=== PATIENT | female | born 1935 | race Caucasian/White ===

== ENCOUNTER 2016-09-19 13:28 | Outpatient (CLI) | payer MEDICARE ==
--- NOTE | 2016-09-21 09:34 | Mammography Report ---
DIGITAL BILATERAL SCREENING MAMMOGRAM: 09/19/2016 CLINICAL HISTORY: A 81-year-old female in for routine screening mammogram. The patient has a cousin w ho had breast cancer at age 60. The patient has had prior breast cancer. The patient had lumpectomy w ith several node resections of the left breast in 2007. COMPARISON: 01/29/2008, 08/01/2008, 02/19/2009, 08/27/2009, 08/12/2010, 08/04/2011, 08/01/2012, 08/22, 08/29/2014, 09/18/2015. TECHNIQUE: Craniocaudal and oblique lateral views of each breast were obtained with Acoriogic profile d igital mammography including breast tomosynthesis. FINDINGS: The breast parenchyma is mainly composed of fat. There is some mild residual scarring from the lumpectomy in the left breast. Multiple surgical clips are noted in the upper outer quadrant of t he left breast related to the prior lumpectomy. No significant clusters of calcification are seen. No significant masses are noted. Left breast is smaller than the right related to the lumpectomy. IMPRESSION: PAST HISTORY OF LEFT LUMPECTOMY. THE BREASTS PRESENTLY APPEAR RADIOGRAPHICALLY BENIGN. BIRADS CATEGORY 2-BENIGN FINDINGS. RECOMMENDATION: ANNUAL BILATERAL SCREENING MAMMOGRAPHY. STANDARD QUALIFYING STATEMENTS 1. This examination was reviewed with the aid of Computer-Aided Detection (CAD). 2. A negative or benign imaging report should not delay biopsy if clinically suspicious findings are present. Consider surgical consultation if warranted. More than 5% of cancers are not identified by i maging. 3. Dense breasts may obscure an underlying neoplasm. JOB #: [id number] EXT JOB #:[id number]
== END 2016-09-19 13:29 | disposition home or self-care (01) ==
LOC: DI 13:28
PROVIDERS: ATTEND Internal Medicine
DX: Z12.31 Encounter for screening mammogram for malignant neoplasm of breast (principal); Z85.3 Personal history of malignant neoplasm of breast
CPT/HCPCS: 77067

== ENCOUNTER 2016-10-20 07:31 | Outpatient (CLI) | payer MEDICARE ==
--- NOTE | 2016-10-20 09:35 | Ultrasound Report ---
LIMITED ABDOMINAL ULTRASOUND: 10/20/2016 CLINICAL HISTORY: Right upper quadrant pain. TECHNIQUE: Real-time scanning was performed with specialty sales representative static images obtained. FINDINGS: The liver demonstrates a hyperechoic mass in the superior lateral aspect of the right lobe measuring 1.5 cm by 1.1 cm by 1.8 cm. This finding was noted on a previous abdominal ultrasound date d 09/15/2014 without significant change in size. The finding most likely represents a benign hemangio ma of the liver. The liver parenchymal pattern otherwise shows no significant abnormality. The liver measures 13.5 cm in length and is of normal size. The portal vein shows hepatopetal flow. The gallbladder shows minimal wall thickening and multiple calculi most of which measure 1 to 1.5 cm. There are over five of these calculi present that show classic echogenic appearance with acoustic sh adowing. Calculi were also present on preceding exam. The gallbladder wall thickening, however, is a new finding. The gallbladder wall measures 2.7 mm. The common hepatic/common bile duct are within normal limits in size measuring 4.6 mm. The right kidn ey measures 9.7 cm and shows no significant pyelocaliceal system dilatation. IMPRESSION: 1. AN 1.5 CM BY 1.1 CM BY 1.8 CM BENIGN LIVER HEMANGIOMA IS ONCE AGAIN SEEN PRESENTING A HYPERECHO IC MASS UNCHANGED IN SIZE COMPARED TO 09/15/2014. 2. MULTIPLE GALLBLADDER CALCULI ARE ONCE AGAIN SEEN (CHOLELITHIASIS). THERE IS NOW SOME MINIMAL GALLB LADDER WALL THICKENING WITH THE WALL MEASURING 2.7 MM. THE PATIENT IS NOT TENDER OVER THE GALLBLADDER . JOB #: [id number] EXT JOB #:[id number]
== END 2016-10-20 07:32 | disposition home or self-care (01) ==
LOC: DI 07:31
PROVIDERS: ATTEND Internal Medicine
DX: D18.09 Hemangioma of other sites (principal); K80.20 Calculus of gallbladder without cholecystitis without obstruction
CPT/HCPCS: 76705

== ENCOUNTER 2017-05-27 10:46 | Observation (INO) | payer MEDICARE ==
[2017-05-27] MEDS ORDERED: ALBUTEROL NEB 2.5 MG/3 ML INH STA ×2 (11:15→12:51)
[2017-05-27] MEDS ORDERED: DEXAMETHASONE 10 MG/ML VIAL PO STA (11:15)
--- NOTE | 2017-05-27 11:17 | ED Physician Documentation ---
History of Present Illness - Stated complaint Stated Complaint: FLU LIKE SYMPTOMS - Chief complaint Chief Complaint: Resp - Additonal information Additional information: hx from pt and daughter 82 female normally quite healthy walks 2 miles a day and lifts weights twice a week hx asthma but not needed MDI for years no cardiac dz sick for about 8 days initially flu like sx (fever myalgia cough) now with acutely worsening SOA and cough no leg swelling Review of Systems Constitutional: reports: Fever, Chills, Myalgias, Fatigue Cardiac: denies: Chest pain / pressure Respiratory: reports: Dyspnea, Cough GI: denies: Abdominal Pain, Nausea, Vomiting, Diarrhea Neurologic: reports: Generalized weakness Endocrine: denies: Easy bruising / bleeding Immunocompromised: denies: Immunocompromised PD PAST MEDICAL HISTORY - Past Medical History Cardiovascular: Hypertension Respiratory: None Neuro: None Endocrine/Autoimmune: Type 2 diabetes GI: None VETERINARY PHYSIOLOGIST: None : None HEENT: None Psych: Depression, Anxiety Musculoskeletal: Osteoarthritis Derm: None - Past Surgical History Past Surgical History: Yes General: Appendectomy, Colonoscopy /VETERINARY PHYSIOLOGIST: Hysterectomy, Other - Present Medications Home Medications: Ambulatory Orders Medication Instructions Recorded Confirmed Furosemide 10 mg PO DAILY 03/08/13 10/13/15 Lisinopril 40 mg PO DAILY 03/08/13 10/13/15 Vitamins A and D [Vitamin A and D] 1 each PO DAILY 03/08/13 10/13/15 Levothyroxine [Synthroid] 10 mcg PO DAILY 08/11/14 10/13/15 Losartan [Cozaar] 25 mg PO DAILY 10/04/14 10/13/15 Meclizine HCl [Antivert] 25 mg PO Q6HR PRN #20 tablet 10/13/15 - Allergies Allergies/Adverse Reactions: Allergies Allergy/AdvReac Type Severity Reaction Status Date / Time codeine [Codeine] Allergy Hallucinati Verified 10/13/15 01:44 ons Opioids-Meperidine and Allergy Unknown Verified 10/13/15 01:44 Related [Opioids-Meperidine & Related] Opioids-Methadone and Related Allergy Unknown Verified 10/13/15 01:44 [Opioids-Methadone & Related] - Social History Does the pt smoke?: No Smoking Status: Never smoker Does the pt drink ETOH?: Yes Does the pt have substance abuse?: No - Immunizations Immunizations are current?: No Immunizations: TDAP >10years/unknown - POLST Patient has POLST: No PD ED PE NORMAL - Vitals Vital signs reviewed: Yes - General General: Alert and oriented X 3 - Neck Neck: Supple, no meningeal sign - Cardiac Cardiac: RRR - Respiratory Respiratory: Other (wheezing and ronchi bilaterally, labored) - Abdomen Abdomen: Soft, Non tender - Extremities Extremities: No edema, No calf tenderness / cord - Neuro Neuro: Alert and oriented X 3 Results - Vitals Vitals: Vital Signs - 24 hr 05/27/17 05/27/17 05/27/17 10:50 11:45 13:33 Temperature 37 C Heart Rate 50 L 64 56 L Respiratory 18 16 14 Rate Blood Pressure 115/72 O2 Saturation 99 05/27/17 13:36 Temperature 36.2 C L Heart Rate 62 Respiratory 10 L Rate Blood Pressure 122/54 L O2 Saturation 122 H Oxygen O2 Source Room air - EKG (time done) 1113 Rate: Rate (enter#) (53) Rhythm: NSR [place]: Normal Intervals: Normal [place] Ischemia: Normal ST segments - Labs Labs: Laboratory Tests 05/27/17 11:01 Influenza A (Rapid) Negative Influenza B (Rapid) Negative Influenza Types A,B Ag - - Rads (name of study) CXR Radiology: See rad report (NACPD) PD MEDICAL DECISION MAKING - ED course ED course: neg CXR neg flu underlying airway dz and ronchi on exam so will cover with antibiotics - gave zmax also steroids and nebs - if wheezing clears may consider dc - else admit for asthma exacerbation after 6 nebs and decadron pt still very wheezy and quite tachypneic RR mid 30s with ambulation d/w hospitalist and will keep in obs Departure - Departure Disposition: ED Place in Observation Clinical Impression: Bronchitis Asthma Qualifiers: Asthma severity: severe Asthma persistence: unspecified Asthma complication type: with acute exacerbation Qualified Code(s): J45.901 - Unspecified asthma with (acute) exacerbation Condition: Fair Discharge Date/Time: 05/27/17 16:05
[2017-05-27] MEDS ORDERED: CHERRY SYRUP 10 ML UDC PO ONE (11:39)
--- NOTE | 2017-05-27 12:03 | XRAY Report ---
EXAM: CHEST RADIOGRAPHY EXAM DATE: 05/27/2017 11:46 AM. CLINICAL HISTORY: Cough soa. COMPARISON: 08/04/2011. TECHNIQUE: 2 views. 3 images are provided. FINDINGS: Lungs/Pleura: No focal consolidation evident. No pleural effusion. No pneumothorax. Borderline hyperi nflation. Mediastinum: Upper normal heart size. Other: Surgical clips in the left breast as before. IMPRESSION: No radiographically apparent acute abnormality in the chest. No significant change from p rior. [facility] Referring Provider Line: [phone] SITE ID: [id number]
[2017-05-27] MEDS ORDERED: AZITHROMYCIN 250 MG TABLET PO STA (13:15)
[2017-05-27] MEDS ORDERED: SODIUM CHLORIDE FLUSH 0.9% 10 ML SYRINGE IVP PRN ×2 (15:27→15:31)
[2017-05-27] MEDS ORDERED: ZOLPIDEM 5 MG TABLET PO PRN (15:31)
[2017-05-27] MEDS ORDERED: ONDANSETRON 4 MG/2 ML VIAL IVP PRN (15:31)
[2017-05-27] MEDS ORDERED: ACETAMINOPHEN 325 MG TABLET PO PRN (15:31)
[2017-05-27] MEDS ORDERED: ALBUTEROL NEB 2.5 MG/3 ML INH PRN (15:36)
[2017-05-27 15:53] LABS: BASOPHILS # (AUTO) 0.1 10^3/uL (0.0-0.1); BASOPHILS % (AUTO) 0.9 %; EOSINOPHILS % (AUTO) 0.1 %; HGB - HEMOGLOBIN 12.5 g/dL (12.0-16.0); LYMPHOCYTES # (AUTO) 0.5 10^3/uL (1.5-3.5); LYMPHOCYTES % (AUTO) 7.3 %; MEAN CORPUSCULAR HEMOGLOBIN 31.9 pg (27.0-31.0); MEAN CORPUSCULAR HGB CONC 34.5 g/dL (32.0-36.0); MEAN CORPUSCULAR VOLUME 92.5 fL (81.0-99.0); MEAN PLATELET VOLUME 8.8 fL (7.9-10.8); MONOCYTES # (AUTO) 0.1 10^3/uL (0.0-1.0); MONOCYTES % (AUTO) 1.2 %; NEUTROPHILS # (AUTO) 6.2 10^3/uL (1.5-6.6); NEUTROPHILS % (AUTO) 90.5 %; PLT - PLATELET COUNT 135 10^3/uL (130-450); RED BLOOD COUNT 3.92 10^6/uL (4.20-5.40); WHITE BLOOD COUNT 6.9 x10^3/uL (4.8-10.8)
[2017-05-27 16:05] LABS: ALBUMIN 3.9 g/dL (3.2-5.5); ALBUMIN/GLOBULIN RATIO 1.4 (1.0-2.2); BILIRUBIN,TOTAL 0.4 mg/dL (0.2-1.0); CALCIUM 8.8 mg/dL (8.5-10.3); MAGNESIUM 1.7 mg/dL (1.7-2.8); TOTAL PROTEIN 6.7 g/dL (6.7-8.2)
--- NOTE | 2017-05-27 16:26 | HISTORY & PHYSICAL EXAMINATION ---
Chief Complaint - Chief Complaint Chief Complaint: cough and wheezing History of Present Illness - Admitted From Admitted From:: ER - History Obtained From History obtained from: pt and pt's daughter - History of Present Illness HPI Comment/Other: This is a 82-year-old female with a past medical history significant for Asthma , HTN, DM2, Depression, Anxiety, osteoarthritis, who present ER complaint of cough, wheezing. Pt repot she has been sickness for 8 days, with elevated temperature, cough with yellowish sputum, wheezing, shortness of breath. Pt report she has no asthma for nearly 4 years since she lost lots of weight. She keep walk 2 miles per day and lifts weights twice per week. She has not taken any medication for her DM2 for couple of years since she lost lots of weight. She denies chest pain, palpitation, headache, abdominal, nausea, vomiting, diarrhea, vision changing. CXR are unremarkable today. Lab test reveals mild elevated glucose, Na134, potassium 3.2. Influenz negative for A/B. Pt is admitted for asthma exacerbation and bronchitis. History - Past Medical History Cardiovascular: reports: Hypertension Respiratory: reports: None Neuro: reports: None Endocrine/Autoimmune: reports: Type 2 diabetes GI: reports: None COIL CONNECTOR REPAIRER: reports: None : reports: None HEENT: reports: None Psych: reports: Depression, Anxiety Musculoskeletal: reports: Osteoarthritis Derm: reports: None MRSA Hx?: No - Past Surgical History General: reports: Appendectomy, Colonoscopy /COIL CONNECTOR REPAIRER: reports: Hysterectomy, Other - Family & Social History Family History Comment/Other: [place]. She had 5 children and 13 grandchildren. Living arrangement: At home Living Situation: With family Social History Notes: pt report she quit cigarette smoking 40 year ago. No alcohol, drug problem. - Substance History Use: Uses substance without health or social issues: NONE Abuse: Recurrent use of substance despite neg consequences: NONE Dependence: Experiences withdrawal or developed tolerances: NONE - POLST Patient has POLST: No POLST Status: Full Code Meds/Allgy - Home Medications Home Medications: Ambulatory Orders Medication Instructions Recorded Confirmed Furosemide 10 mg PO DAILY 03/08/13 10/13/15 Lisinopril 40 mg PO DAILY 03/08/13 10/13/15 Vitamins A and D [Vitamin A and D] 1 each PO DAILY 03/08/13 10/13/15 Levothyroxine [Synthroid] 10 mcg PO DAILY 08/11/14 10/13/15 Losartan [Cozaar] 25 mg PO DAILY 10/04/14 10/13/15 Meclizine HCl [Antivert] 25 mg PO Q6HR PRN #20 tablet 10/13/15 - Allergies Allergies/Adverse Reactions: Allergies Allergy/AdvReac Type Severity Reaction Status Date / Time codeine [Codeine] Allergy Hallucinati Verified 10/13/15 01:44 ons Opioids-Meperidine and Allergy Unknown Verified 10/13/15 01:44 Related [Opioids-Meperidine & Related] Opioids-Methadone and Related Allergy Unknown Verified 10/13/15 01:44 [Opioids-Methadone & Related] Review of Systems - Constitutional Constitutional: reports: Fatigue, Fever, Chills, Weakness. denies: Poor appetite, Diaphoresis, Night sweats - Eyes Eyes: denies: Pain, Irritation, Amaurosis, Blurred vision, Spots in vision, Field loss, Vision loss, Dipolpia - Ears, Nose & Throat Ears, Nose & Throat: denies: Ear pain, Hearing loss, Hearing aids, Tinnitus, Vertigo, Nasal pain, Nasal discharge, Nosebleeds, Postnasal drainage, Sore throat, Mouth lesions, Bleeding gums - Cardiovascular Cariovascular: denies: Irregular heart rate, Palpitations, Chest pain, Edema, Lightheadedness, Syncope, Exertional dyspnea, Decr. exercise tolerance - Respiratory Respiratory: reports: Cough, Sputum production, Wheezing. denies: Snoring, Hemoptysis, Orthopnea, SOB at rest, SOB with exertion - Gastrointestinal Gastrointestinal: denies: Abdominal pain, Abdominal distention, Constipation, Diarrhea, Change in bowel habits, Rectal bleeding, Black stools, Nausea, Vomiting, Kyle blood emesis, Coffee grounds emesis - Genitourinary Genitourinary: denies: Dysuria, Frequency, Urgency, Hematuria, Incontinence, Flank pain, Nocturia, Urethral discharge - Musculoskeletal Musculoskeletal: denies: Muscle pain, Muscle aches, Stiffness, Limited range of motion, Muscle weakness, Gout, Joint pain - Integumentary Integumentary: denies: Rash, Pruritis, Lesions, Dryness, Lumps, Acne, Pigment changes - Neurological Neurological: denies: General weakness, Focal weakness, Headache, Dizziness, Numbness, Memory problems, Pre-existing deficit, Abnormal gait, Seizures, Incoordination, Slurred speech - Psychiatric Psychiatric: denies: Depression, Anxiety, Suicidal, Delusions, Hallucinations, Homicidal - Endocrine Endocrine: denies: Polyuria, Polydypsia, Polyphagia, Intolerance to cold - Hematologic/Lymphatic Hematologic/Lymphatic: denies: Anemia, Bruising, Petechiae, Blood clots, Lymphadenopathy, Bleeding tendencies, Recurrent infections Exam - Vital Signs Reviewed Vital Signs: Yes Vital Signs: Vital Signs x48h Temp Pulse Pulse Resp BP BP Pulse Ox 05/27/17 16:14 36.6 C 64 18 140/50 H 100 05/27/17 16:01 68 18 129/64 98 - Physical Exam General Appearance: positive: No acute distress, Alert. negative: Lethargic Eyes Bilateral: positive: Normal inspection, PERRL, No lid inflammation, Conjunctivae nml ENT: positive: ENT inspection nml, Pharynx nml, No signs of dehydration. negative: Purulent nasal drainage, Pharyngeal erythema, Oral lesions Neck: positive: Nml inspection, Thyroid nml, No JVD, Trachea midline. negative : Thyromegaly, Lymphadenopathy (R), Lymphadenopathy (L), Stiff neck, Carotid bruit, Swelling/bruising, Tracheal deviation Respiratory: positive: Chest non-tender, No respiratory distress, Wheezes. negative: Breath sounds nml, Rales, Rhonchi Cardiovascular: positive: Regular rate & rhythm, No murmur, No gallop. negative : Irregularly irregular, Extrasystoles, Tachycardia, Bradycardia, Systolic murmur, Diastolic murmur Peripheral Pulses: positive: 2+ Abdomen: positive: Non-tender, No organomegaly, Nml bowel sounds, No distention. negative: Tenderness, Guarding, Rebound Back: positive: Nml inspection. negative: CVA tenderness (R), CVA tenderness (L ) Skin: positive: Color nml, No rash, Warm, Dry. negative: Cyanosis, Diaphoresis , Pallor Extremities: positive: Non-tender, Full ROM, Nml appearance. negative: Calf tenderness, Joint swelling, Blade's sign/cords Neurologic/Psychiatric: positive: Oriented x3, Motor nml, Sensation nml, Mood/ affect nml. negative: Sensory loss, Facial droop, Slurred/abnml speech, Depressed mood/affect Conclusion/Plan - Problem List (1) Wheezing on auscultation Conclusion/Plan: wheezing on auscultation on whole lobe, hx of asthma, after flu-like stress Albuterol solu-metro O2 supplement PRN, RT consult (2) Bronchitis Conclusion/Plan: cough with yellowish, elevated temperature, flu-like symptoms Azithyomycin (3) HTN (hypertension) Conclusion/Plan: stable, resume home meds PRN Clonidine vital monitor (4) DM2 (diabetes mellitus, type 2) Conclusion/Plan: pt state she is boardline DM after she lost weight, no medication at home now, but today her glucose is elevated check A1C slide scale ACHS daily lab monitor (5) Anxiety Conclusion/Plan: stable, resume home mds (6) DVT prophylaxis Conclusion/Plan: SCD and lovenox (7) Full code status Conclusion/Plan: pt request full code status - Lab Results Fish Bones: 05/28/17 05:40 05/28/17 05:40 Core Measures - Anticipated LOS I expect patient to be DC'd or transferred within 96 hours.: Yes
[2017-05-27] MEDS ORDERED: POTASSIUM CHLORIDE 20 MEQ TABLET PO ONE (17:00)
[2017-05-27 17:06] LABS: HB2 TOTAL 13.2 g/dL; HEMOGLOBIN A1C 0.53 g/dL; HEMOGLOBIN A1C % 5.8 % (4.6-6.2)
[2017-05-27] MEDS: SODIUM CHLORIDE 0.9% 1,000 ML IV SCH (17:07)
[2017-05-27] MEDS: methylPREDNISolone SUCCINATE 40 MG/ML VIAL IVP SCH ×2 (17:09→21:10)
[2017-05-27] MEDS: INSULIN ASPART 300 UNIT/3 ML PEN SUBQ SCH ×2 (17:20→21:08)
[2017-05-27] MEDS: guaiFENesin 600 MG TABLET PO SCH ×2 (18:37→20:19)
[2017-05-27] MEDS: POTASSIUM CHLORIDE 10 MEQ CAPSULE PO SCH (20:18)
[2017-05-27] MEDS: LOSARTAN 50 MG TABLET PO SCH (20:18)
[2017-05-27] MEDS: FUROSEMIDE 20 MG TABLET PO SCH (20:18)
[2017-05-27] MEDS: SODIUM CHLORIDE FLUSH 0.9% 10 ML SYRINGE IVP SCH (21:09)
[2017-05-27] MEDS: IPRATROPIUM/ALBUTEROL 3 ML NEB INH PRN (21:21)
[2017-05-27] MEDS ORDERED: SODIUM CHLORIDE FLUSH 0.9% 10 ML SYRINGE IVP SCH (22:00)
[2017-05-28] MEDS: SODIUM CHLORIDE 0.9% 1,000 ML IV SCH (04:54)
[2017-05-28] MEDS: methylPREDNISolone SUCCINATE 40 MG/ML VIAL IVP SCH (05:52)
[2017-05-28 06:03] LABS: BASOPHILS % (AUTO) 0.6 %; HGB - HEMOGLOBIN 12.1 g/dL (12.0-16.0); LYMPHOCYTES # (AUTO) 0.9 10^3/uL (1.5-3.5); LYMPHOCYTES % (AUTO) 14.4 %; MEAN CORPUSCULAR HEMOGLOBIN 31.7 pg (27.0-31.0); MEAN CORPUSCULAR HGB CONC 34.4 g/dL (32.0-36.0); MEAN CORPUSCULAR VOLUME 92.2 fL (81.0-99.0); MEAN PLATELET VOLUME 8.8 fL (7.9-10.8); MONOCYTES # (AUTO) 0.2 10^3/uL (0.0-1.0); MONOCYTES % (AUTO) 3.5 %; NEUTROPHILS # (AUTO) 4.9 10^3/uL (1.5-6.6); NEUTROPHILS % (AUTO) 81.5 %; PLT - PLATELET COUNT 137 10^3/uL (130-450); RED BLOOD COUNT 3.82 10^6/uL (4.20-5.40); RED CELL DISTRIBUTION WIDTH 13.1 % (12.0-15.0)
[2017-05-28] MEDS: SODIUM CHLORIDE FLUSH 0.9% 10 ML SYRINGE IVP SCH (06:14)
[2017-05-28 06:30] LABS: ALBUMIN 3.4 g/dL (3.2-5.5); ALBUMIN/GLOBULIN RATIO 1.3 (1.0-2.2); BILIRUBIN,TOTAL 0.4 mg/dL (0.2-1.0); CALCIUM 8.8 mg/dL (8.5-10.3); CREATININE 0.7 mg/dL (0.4-1.0); TOTAL PROTEIN 6.1 g/dL (6.7-8.2)
[2017-05-28 06:46] LABS: HB2 TOTAL 12.7 g/dL; HEMOGLOBIN A1C 0.47 g/dL; HEMOGLOBIN A1C % 5.5 % (4.6-6.2)
[2017-05-28] MEDS ORDERED: LEVOTHYROXINE 25 MCG TABLET PO SCH (07:00)
[2017-05-28] MEDS: IPRATROPIUM/ALBUTEROL 3 ML NEB INH PRN (07:36)
[2017-05-28] MEDS: guaiFENesin 600 MG TABLET PO SCH (08:34)
[2017-05-28] MEDS: LOSARTAN 50 MG TABLET PO SCH (08:34)
[2017-05-28] MEDS: POTASSIUM CHLORIDE 10 MEQ CAPSULE PO SCH (08:34)
[2017-05-28] MEDS: INSULIN ASPART 300 UNIT/3 ML PEN SUBQ SCH (08:34)
[2017-05-28] MEDS ORDERED: cloNIDine 0.1 MG TABLET PO PRN ×2 (08:36→11:34)
[2017-05-28] MEDS: FUROSEMIDE 20 MG TABLET PO SCH (08:38)
[2017-05-28] MEDS ORDERED: ENOXAPARIN 40 MG/0.4 ML SYRINGE SUBQ SCH (09:00)
[2017-05-28] MEDS ORDERED: AZITHROMYCIN 250 MG TABLET PO SCH (09:00)
[2017-05-28] MEDS ORDERED: FAMOTIDINE 20 MG TABLET PO SCH (09:00)
[2017-05-28] MEDS ORDERED: POLYETHYLENE GLYCOL 3350 17 GM PACKET PO SCH ×2 (09:00)
[2017-05-28 11:33] VITALS: BP 168/74
--- NOTE | 2017-05-28 11:41 | Discharge Plan ---
Discharge Plan Disposition: 01 Home, Self Care Condition: Stable Prescriptions: Azithromycin [Zithromax] 250 mg PO DAILY #4 tablet predniSONE [Deltasone] 20 mg PO [id number] #21 tab Diet: Regular Activity Restrictions: Activity as Tolerated Shower Restrictions: No Driving Restrictions: No Weight Bearing: Full Weight Follow-Up Care: [facility] No Smoking: If you smoke, Please STOP! Call for help. Follow-up with: Alla Lozada MD [Primary Care Provider] -
--- NOTE | 2017-05-28 11:42 | DISCHARGE SUMMARY ---
Discharge Summary Discharge Date: 05/28/17 Discharging Provider: MADDOX Primary Care Provider: Alla Mcmanus Condition at Discharge: Stable Discharge Disposition: Home, Self Care Discharge Facility Name: home - DIAGNOSES Admission Diagnoses: (1) Wheezing on auscultation/Asthma exacerbation (2) Bronchitis (3) HTN (hypertension) (4) DM2 (diabetes mellitus, type 2) (5) Anxiety Discharge Diagnoses with Status of Each Condition: (1) Wheezing on auscultation/Asthma exacerbation resolved. no wheezing on auscultation. Pt walk at [address], room air without distress, walk fast. SO2 99% at room air. continue to use INH as needed and taper of Steroid. (2) Bronchitis stable, no cough, fever, chill. continue Azithyromycin to finish the course (3) HTN (hypertension) stable. BP at discharge is 144/76, I am with nurse to check pt's BP at the time to discharge pt. (4) DM2 (diabetes mellitus, type 2) stable (5) Anxiety stable. - HPI History of Present Illness: This is a 82-year-old female with a past medical history significant for Asthma , HTN, DM2, Depression, Anxiety, osteoarthritis, who present ER complaint of cough, wheezing. Pt repot she has been sickness for 8 days, with elevated temperature, cough with yellowish sputum, wheezing, shortness of breath. Pt report she has no asthma for nearly 4 years since she lost lots of weight. She keep walk 2 miles per day and lifts weights twice per week. She has not taken any medication for her DM2 for couple of years since she lost lots of weight. She denies chest pain, palpitation, headache, abdominal, nausea, vomiting, diarrhea, vision changing. CXR are unremarkable today. Lab test reveals mild elevated glucose, Na134, potassium 3.2. Influenz negative for A/B. Pt is admitted for asthma exacerbation and bronchitis. - HOSPITAL COURSE Hospital Course: pt was admitted with Wheezing, cough, asthma exacerbation, bronchitis. Pt was treated with Solu-metro IV and Albuterol, and Azithyomycin. Pt's symptoms were dramatically improved. Pt walked at [address] on room air faster than me. There is no respiratory distress. Room air with 99% SO2. Pt request to be d/c to home. - ALLERGIES Allergies/Adverse Reactions: Allergies Allergy/AdvReac Type Severity Reaction Status Date / Time codeine [Codeine] Allergy Hallucinati Verified 10/13/15 01:44 ons Opioids-Meperidine and Allergy Unknown Verified 10/13/15 01:44 Related [Opioids-Meperidine & Related] Opioids-Methadone and Related Allergy Unknown Verified 10/13/15 01:44 [Opioids-Methadone & Related] - MEDICATIONS Home Medications: Ambulatory Orders Medication Instructions Recorded Confirmed Levothyroxine [Synthroid] 25 mcg PO QDAC 08/11/14 05/28/17 Meclizine HCl [Antivert] 25 mg PO Q6HR PRN #20 tablet 10/13/15 05/28/17 Albuterol Sulf [Ventolin Hfa 1 - 2 puffs INH Q4HR PRN 05/28/17 05/28/17 Inhaler] Azithromycin [Zithromax] 250 mg PO DAILY #4 tablet 05/28/17 Calcium Carbonate/Vitamin D3 1 each PO BID 05/28/17 05/28/17 [Caltrate 600 Plus D3 Tablet] Furosemide [Lasix] 20 mg PO QDBREAKFAST 05/28/17 05/28/17 Glucosamine HCl/Chondroitin Medeiros 1 each PO BID 05/28/17 05/28/17 [Endur-Flex Sr Tablet] Losartan Potassium [Cozaar] 100 mg PO DAILY 05/28/17 05/28/17 Magnesium 250 mg PO QPM 05/28/17 05/28/17 Potassium Chloride [Klor-Con 10] 10 meq PO QDBREAKFAST 05/28/17 05/28/17 Vitamin A Acetate [Vitamin A] 1 tab PO QDBREAKFAST 05/28/17 05/28/17 diphenhydrAMINE [Benadryl] 50 mg PO QPM 05/28/17 05/28/17 predniSONE [Deltasone] 20 mg PO [id number] #21 tab 05/28/17 - PHYSICAL EXAM AT DISCHARGE General Appearance: positive: No acute distress, Alert. negative: Lethargic Eyes Bilateral: positive: Normal inspection, PERRL. negative: No lid inflammation, Conjunctivae nml ENT: positive: ENT inspection nml, Pharynx nml, No signs of dehydration. negative: Purulent nasal drainage, Pharyngeal erythema, Oral lesions Neck: positive: Nml inspection, Thyroid nml, No JVD, Trachea midline. negative : Thyromegaly, Lymphadenopathy (R), Lymphadenopathy (L), Stiff neck, Carotid bruit, Swelling/bruising, Tracheal deviation Respiratory: positive: Chest non-tender, No respiratory distress, Breath sounds nml. negative: Wheezes, Rales, Rhonchi Cardiovascular: positive: Regular rate & rhythm, No murmur, No gallop. negative : Irregularly irregular, Extrasystoles, Tachycardia, Bradycardia, Systolic murmur, Diastolic murmur Peripheral Pulses: positive: 2+ Abdomen: positive: Non-tender, No organomegaly, Nml bowel sounds, No distention. negative: Tenderness, Guarding, Rebound Back: positive: Nml inspection. negative: CVA tenderness (R), CVA tenderness (L ) Skin: positive: Color nml, No rash, Warm, Dry. negative: Cyanosis, Diaphoresis , Pallor Extremities: positive: Non-tender, Full ROM, Nml appearance. negative: Calf tenderness, Joint swelling, Blade's sign/cords Neurologic/Psychiatric: positive: Oriented x3, Motor nml, Sensation nml, Mood/ affect nml. negative: Sensory loss, Facial droop, Slurred/abnml speech, Depressed mood/affect - LABS Result Diagrams: 05/28/17 05:40 05/28/17 05:40 - FOLLOW UP Follow Up: pt is advised to follow up PCP in 3-4 days, resume home meds, have albuterol inhaler as needed, have taper of steroid, have Azithyomycin as the schedule. - TIME SPENT Time Spent in Discharge (Minutes): 40
== END 2017-05-28 12:37 | disposition home or self-care (01) ==
LOC: ED 10:46 → OBS 15:27
PROVIDERS: ADMIT Nurse Practitioner Gerontology; ATTEND Nurse Practitioner Gerontology
DX: J45.901 Unspecified asthma with (acute) exacerbation (principal); J20.9 Acute bronchitis, unspecified; I10 Essential (primary) hypertension; E11.9 Type 2 diabetes mellitus without complications; F41.9 Anxiety disorder, unspecified; F32.9 Major depressive disorder, single episode, unspecified; Z79.899 Other long term (current) drug therapy; M19.90 Unspecified osteoarthritis, unspecified site
CPT/HCPCS: 36415; 71046; 80053; 83036; 83735; 84443; 85025; 85379; 87275; 87276; 93005; 94640; 96361; 96374; 96376; 99283; 99284; A9270; G0378; J7613; J7620

== ENCOUNTER 2017-09-21 09:14 | Outpatient (CLI) | payer MEDICARE ==
--- NOTE | 2017-09-22 17:45 | Mammography Report ---
DIGITAL SCREENING MAMMOGRAM: 09/21/2017 CLINICAL INDICATION: An 82-year-old with personal history of left breast cancer status post lumpectomy and chemoradiation. TECHNIQUE: Routine CC and MLO projections were obtained of the breasts. COMPARISON: 08/2016, 08/2015, 08/2014, 07/2013, 07/2012, 07/2011, 07/2010, 07/2009. FINDINGS: The breasts demonstrate scattered fibroglandular densities bilaterally. Postoperative and posttreatment changes in the left breast are stable. No suspicious masses, clustered microcalcifications, or regions of architectural distortion are identified. IMPRESSION: BENIGN FINDINGS. RECOMMENDATION: Routine annual screening unless otherwise clinically indicated. BIRADS category 2 benign findings. STANDARD QUALIFYING STATEMENTS 1. This examination was reviewed with the aid of Computed-Aided Detection (CAD). 2. A negative or benign imaging report should not delay biopsy if clinically suspicious findings are present. Consider surgical consultation if warranted. More than 5% of cancers are not identified by imaging. 3. Dense breasts may obscure an underlying neoplasm. TD: 09/22/2017 12:57
== END 2017-09-21 09:15 | disposition home or self-care (01) ==
LOC: DI 09:14
PROVIDERS: ATTEND Internal Medicine
DX: Z12.31 Encounter for screening mammogram for malignant neoplasm of breast (principal)
CPT/HCPCS: 77067

== ENCOUNTER 2018-07-25 10:21 | Emergency (ER) | payer MEDICARE ==
[2018-07-25 11:04] LABS: BASOPHILS # (AUTO) 0.1 10^3/uL (0.0-0.1); BASOPHILS % (AUTO) 1.1 %; EOSINOPHILS % (AUTO) 0.1 %; GLUCOSE, URINE (UA) NEGATIVE (NEGATIVE); HGB - HEMOGLOBIN 12.9 g/dL (12.0-16.0); KETONES,URINE (UA) NEGATIVE (NEGATIVE); LEUKOCYTE ESTERASE, URINE NEGATIVE (NEGATIVE); LYMPHOCYTES # (AUTO) 1.1 10^3/uL (1.5-3.5); LYMPHOCYTES % (AUTO) 16.1 %; MEAN CORPUSCULAR HEMOGLOBIN 31.6 pg (27.0-31.0); MEAN CORPUSCULAR HGB CONC 34.2 g/dL (32.0-36.0); MEAN CORPUSCULAR VOLUME 92.5 fL (81.0-99.0); MEAN PLATELET VOLUME 8.5 fL (7.9-10.8); MONOCYTES # (AUTO) 0.8 10^3/uL (0.0-1.0); MONOCYTES % (AUTO) 11.4 %; NEUTROPHILS # (AUTO) 5.1 10^3/uL (1.5-6.6); NEUTROPHILS % (AUTO) 71.3 %; NITRITE,URINE NEGATIVE (NEGATIVE); OCCULT BLOOD,URINE LARGE (NEGATIVE); PH,URINE 5.5 PH (5.0-7.5); PLT - PLATELET COUNT 139 10^3/uL (130-450); PROTEIN,URINE TRACE mg/dL (NEGATIVE); RED BLOOD COUNT 4.07 10^6/uL (4.20-5.40); RED CELL DISTRIBUTION WIDTH 13.3 % (12.0-15.0); UROBILINOGEN,URINE 0.2 (NORMAL) E.U./dL (NORMAL); WHITE BLOOD COUNT 7.1 x10^3/uL (4.8-10.8)
[2018-07-25 11:12] LABS: BILIRUBIN,URINE NEGATIVE (NEGATIVE); CLARITY,URINE CLEAR (CLEAR); ICTOTEST,URINE NEGATIVE
[2018-07-25 11:17] LABS: BACTERIA,URINE Few /HPF (None Seen); RBC,URINE 0-5 /HPF (0-5); SQUAMOUS EPITHELIAL CELL,UR FEW Squamous (<= Few)
[2018-07-25 11:18] LABS: CASTS, URINE 11-25 Hyaline Casts /LPF; MUCUS,URINE Few Strands
[2018-07-25 11:19] LABS: ALBUMIN 3.8 g/dL (3.2-5.5); ALBUMIN/GLOBULIN RATIO 1.3 (1.0-2.2); BILIRUBIN,TOTAL 0.8 mg/dL (0.2-1.0); CALCIUM 8.7 mg/dL (8.5-10.3); TOTAL PROTEIN 6.7 g/dL (6.7-8.2)
[2018-07-25] MEDS ORDERED: SODIUM CHLORIDE 0.9% 1,000 ML IV ONE (12:04)
[2018-07-25] MEDS ORDERED: cefTRIAXone 1 GM in SODIUM CHLORIDE 0.9% MINIBAG 100 ML IV STA (12:04)
[2018-07-25] MEDS ORDERED: ONDANSETRON 4 MG/2 ML VIAL IVP STA (12:04)
--- NOTE | 2018-07-25 12:08 | ED Physician Documentation ---
PD HPI NVD - Stated complaint Stated Complaint: VOMITING - Chief complaint Chief Complaint: Abd Pain - History obtained from History obtained from: Patient - History of Present Illness Timing - onset: How many days ago (3) Timing - duration: Days (3) Timing - details: Gradual onset, Still present Associated symptoms: Fever, Loss of appetite Contributing factors: Sick contact Improved by: Laying still, Vomiting Worsened by: Eating Similar symptoms before: Diagnosis (flu) Recently seen: Not recently seen - Additonal information Additional information: 83-year-old female is developed a fever cough congestion and nausea and vomiting. She has not been able to keep fluids down if she drinks anything will come back up within the hour. She is developed some pain in her right ear and she is developed a cough that has been persistent and worsening. Review of Systems Constitutional: reports: Fever, Chills, Myalgias, Fatigue Eyes: denies: Decreased vision Ears: reports: Ear pain Nose: reports: Rhinorrhea / runny nose, Congestion Throat: denies: Sore throat Cardiac: denies: Chest pain / pressure, Palpitations Respiratory: reports: Cough. denies: Dyspnea GI: reports: Nausea, Vomiting : denies: Dysuria, Frequency PD PAST MEDICAL HISTORY - Past Medical History Cardiovascular: Hypertension Respiratory: None Endocrine/Autoimmune: Type 2 diabetes GI: None FITTER UP: None : None HEENT: None Psych: Depression, Anxiety Musculoskeletal: Osteoarthritis Derm: None - Past Surgical History Past Surgical History: Yes General: Appendectomy, Colonoscopy /FITTER UP: Hysterectomy, Other - Present Medications Home Medications: Ambulatory Orders Medication Instructions Recorded Confirmed Levothyroxine [Synthroid] 25 mcg PO QDAC 08/11/14 05/28/17 Meclizine HCl [Antivert] 25 mg PO Q6HR PRN #20 tablet 10/13/15 05/28/17 Albuterol Sulf [Ventolin Hfa 1 - 2 puffs INH Q4HR PRN 05/28/17 05/28/17 Inhaler] Azithromycin [Zithromax] 250 mg PO DAILY #4 tablet 05/28/17 Calcium Carbonate/Vitamin D3 1 each PO BID 05/28/17 05/28/17 [Caltrate 600 Plus D3 Tablet] Furosemide [Lasix] 20 mg PO QDBREAKFAST 05/28/17 05/28/17 Glucosamine HCl/Chondroitin Medeiros 1 each PO BID 05/28/17 05/28/17 [Endur-Flex Sr Tablet] Losartan Potassium [Cozaar] 100 mg PO DAILY 05/28/17 05/28/17 Magnesium 250 mg PO QPM 05/28/17 05/28/17 Potassium Chloride [Klor-Con 10] 10 meq PO QDBREAKFAST 05/28/17 05/28/17 Vitamin A Acetate [Vitamin A] 1 tab PO QDBREAKFAST 05/28/17 05/28/17 diphenhydrAMINE [Benadryl] 50 mg PO QPM 05/28/17 05/28/17 predniSONE [Deltasone] 20 mg PO [id number] #21 tab 05/28/17 Amox/Clav 875/125 [Augmentin] 1 each PO Q12H #20 tablet 07/25/18 Ondansetron Odt [Zofran] 4 mg TL Q6H PRN #10 tablet 07/25/18 - Allergies Allergies/Adverse Reactions: Allergies Allergy/AdvReac Type Severity Reaction Status Date / Time codeine [Codeine] Allergy Hallucinati Verified 07/25/18 10:39 ons Opioids-Meperidine and Allergy Unknown Verified 07/25/18 10:39 Related [Opioids-Meperidine & Related] Opioids-Methadone and Related Allergy Unknown Verified 07/25/18 10:39 [Opioids-Methadone & Related] - Social History Does the pt smoke?: No Smoking Status: Never smoker Does the pt drink ETOH?: Yes Does the pt have substance abuse?: No - Immunizations Immunizations are current?: No Immunizations: TDAP >10years/unknown - POLST Patient has POLST: No POLST Status: Full Code PD ED PE NORMAL - Vitals Vital signs reviewed: Yes (hypertensive with wide pulse pressure. ) - General General: Alert and oriented X 3, No acute distress, Well developed/nourished - HEENT HEENT: Atraumatic, PERRL, EOMI, Other (right TM is inflamed along the umbo with rounding ) - Neck Neck: Supple, no meningeal sign, No bony TTP - Cardiac Cardiac: RRR, No murmur - Respiratory Respiratory: No respiratory distress, Other (scattered rhonchi bibasilar. ) - Abdomen Abdomen: Soft, Non tender - Back Back: No CVA TTP, No spinal TTP - Derm Derm: Normal color, Warm and dry, No rash - Extremities Extremities: No deformity, No edema - Neuro Neuro: Alert and oriented X 3, clerk guide 2-12 intact, No motor deficit, No sensory deficit, Normal speech Eye Opening: Spontaneous Motor: Obeys Commands Verbal: Oriented GCS Score: 15 - Psych Psych: Normal mood, Normal affect Results - Vitals Vitals: Vital Signs - 24 hr 07/25/18 07/25/18 07/25/18 10:35 10:55 12:59 Temperature 36.8 C 37.7 C H Heart Rate 68 62 Respiratory 18 20 12 Rate Blood Pressure 146/61 H 141/55 H O2 Saturation 96 97 Oxygen O2 Source Room air - Labs Labs: Laboratory Tests 07/25/18 07/25/18 07/25/18 10:53 10:53 10:53 WBC 7.1 RBC 4.07 L Hgb 12.9 Hct 37.7 MCV 92.5 MCH 31.6 H MCHC 34.2 RDW 13.3 Plt Count 139 MPV 8.5 Neut # (Auto) 5.1 Lymph # (Auto) 1.1 L [place] # (Auto) 0.8 Eos # (Auto) 0.0 Baso # (Auto) 0.1 Absolute Nucleated RBC 0.00 Nucleated RBC % 0.0 Sodium 133 L Potassium 3.1 L Chloride 97 L Carbon Dioxide 25 Anion Gap 11.0 BUN 14 Creatinine 1.0 Estimated GFR (MDRD) 53 L Glucose 140 H Calcium 8.7 Total Bilirubin 0.8 AST 27 ALT 15 Alkaline Phosphatase 49 Total Protein 6.7 Albumin 3.8 Globulin 2.9 Albumin/Globulin Ratio 1.3 Lipase 36 Urine Color YELLOW Urine Clarity CLEAR Urine pH 5.5 Ur Specific [place] >=1.030 H Urine Protein TRACE Urine Glucose (UA) NEGATIVE Urine Ketones NEGATIVE Urine Occult Blood LARGE H Urine Nitrite NEGATIVE Urine Bilirubin NEGATIVE Urine Urobilinogen 0.2 (NORMAL) Ur Leukocyte Esterase NEGATIVE Urine RBC 0-5 Urine WBC 0-3 Ur Squamous Epith Cells FEW Squamous Urine Bacteria Few Urine Casts 11-25 Hyaline Casts Urine Mucus Few Strands Ur Microscopic Review INDICATED Urine Culture Comments NOT INDICATED Influenza A (Rapid) Influenza B (Rapid) 07/25/18 12:19 WBC RBC Hgb Hct MCV MCH MCHC RDW Plt Count MPV Neut # (Auto) Lymph # (Auto) [place] # (Auto) Eos # (Auto) Baso # (Auto) Absolute Nucleated RBC Nucleated RBC % Sodium Potassium Chloride Carbon Dioxide Anion Gap BUN Creatinine Estimated GFR (MDRD) Glucose Calcium Total Bilirubin AST ALT Alkaline Phosphatase Total Protein Albumin Globulin Albumin/Globulin Ratio Lipase Urine Color Urine Clarity Urine pH Ur Specific [place] Urine Protein Urine Glucose (UA) Urine Ketones Urine Occult Blood Urine Nitrite Urine Bilirubin Urine Urobilinogen Ur Leukocyte Esterase Urine RBC Urine WBC Ur Squamous Epith Cells Urine Bacteria Urine Casts Urine Mucus Ur Microscopic Review Urine Culture Comments Influenza A (Rapid) Negative Influenza B (Rapid) Negative - Rads (name of study) chest 2 view Radiology: Prelim report reviewed (Impression: Normal two-view chest radiography.), EMP read indepedently, See rad report Procedures - IVC sono (time) 1205 Bedside IVC sono: IVC measures (cm) (1.22), IVC collapsed c insp (cm) (complete), Dehydration (est 1 liter deficit) PD MEDICAL DECISION MAKING - ED course Complexity details: reviewed results, re-evaluated patient, considered differential, d/w patient, d/w family ED course: 83-year-old female with cough congestion fever body aches and pains has developed nausea and vomiting and is dehydrated. She is administered saline and Zofran and she has right otitis on exam as well as rhonchi on lung exam and she is administered Rocephin as well. Her nose is swabbed for influenza and this will likely be positive.----it was negative. She is much improved with the zofran and fluids and we will treat the OM and provide some zofran as well. Departure - Departure Disposition: 01 Home, Self Care Clinical Impression: Dehydration Otitis media Qualifiers: Otitis media type: suppurative Chronicity: acute Laterality: right Recurrence: not specified as recurrent Spontaneous tympanic membrane rupture: without spontaneous rupture Qualified Code(s): H66.001 - Acute suppurative otitis media without spontaneous rupture of ear drum, right ear Vomiting Qualifiers: Vomiting type: unspecified Vomiting Intractability: non-intractable Nausea presence: with nausea Qualified Code(s): R11.2 - Nausea with vomiting, unspecified Condition: Stable Instructions: ED Dehydration, ED Otitis Media Acute Adult, ED Diet Vomiting Diarrhea Follow-Up: Alla Lozada MD [Primary Care Provider] - Prescriptions: Amox/Clav 875/125 [Augmentin] 1 each PO Q12H #20 tablet Ondansetron Odt [Zofran] 4 mg TL Q6H PRN #10 tablet PRN Reason: Nausea / Vomiting
[2018-07-25] MEDS ORDERED: POTASSIUM BICARB 25 MEQ TABLET PO STA (13:01)
--- NOTE | 2018-07-25 14:25 | XRAY Report ---
Reason: cough rhonchi Procedure Date: 07/25/2018 Accession Number: [id number] / [id number] Procedure: XR - Chest 2 View X-Ray CPT Code: 45189 FULL RESULT: EXAM: CHEST RADIOGRAPHY EXAM DATE: 07/25/2018 02:12 PM. CLINICAL HISTORY: Cough, rhonchi. COMPARISON: 05/27/2017. TECHNIQUE: 2 views. FINDINGS: Lungs/Pleura: No focal opacities evident. No pleural effusion. No pneumothorax. Normal volumes. Mediastinum: Heart and mediastinal contours are unremarkable. Other: Remote left breast surgery. IMPRESSION: Normal 2-view chest radiography. RADIA
[2018-07-25 14:51] VITALS: BP 147/78
== END 2018-07-25 14:50 | disposition home or self-care (01) ==
LOC: ED 10:21
DX: E86.0 Dehydration (principal); H66.001 Acute suppurative otitis media without spontaneous rupture of ear drum, right ear; R11.2 Nausea with vomiting, unspecified; E11.9 Type 2 diabetes mellitus without complications; I10 Essential (primary) hypertension
CPT/HCPCS: 36415; 71046; 80053; 81001; 83690; 85025; 87275; 87276; 96361; 96365; 96375; 99283; 99284; A9270; 81003; 87086

== ENCOUNTER 2019-02-13 13:12 | Outpatient (CLI) | payer MEDICARE ==
--- NOTE | 2019-02-14 14:37 | MRI Report ---
Reason: LUMBAR PAIN Procedure Date: 02/13/2019 Accession Number: [id number] / [id number] Procedure: MRI - Lumbar Spine W/O CPT Code: FULL RESULT: EXAM: MRI LUMBAR SPINE WITHOUT CONTRAST EXAM DATE: 02/13/2019 02:27 PM. CLINICAL HISTORY: 83-year-old woman with low back pain. COMPARISON: None. TECHNIQUE: Multiplanar, multisequence T1-weighted and fluid-sensitive sequences of the lumbar spine from T12 to S1 without contrast. Other: None. FINDINGS: Spinal Canal: The conus terminates at L1-L2. The conus medullaris and cauda equina are unremarkable. Alignment: Grade 1-2 anterolisthesis of L4 on L5 measures approximately 8 mm. There is also minimal grade 1 anterolisthesis of L3 on L4. There is minimal convex right curvature of the lumbar spine. Bone Marrow: Five [id number] lumbar vertebral bodies are present. No gross fractures or bone lesions. Degenerative endplate edema and Modic type II chronic degenerative endplate changes are present at L4-L5. Disk Levels/Facets: T12-L1: There is disk desiccation without significant height loss. Small broad-based disk bulge is present without significant narrowing of central canal or neural foramina. L1-L2: There is disk desiccation without significant height loss. Small broad-based disk bulge and mild facet hypertrophy result in mild narrowing of the central canal. No significant neural foraminal narrowing. L2-L3: There is disk desiccation and mild height loss. Small broad-based disk bulge and mild facet hypertrophy result in mild narrowing of the central canal. Disk in the subarticular spaces results in minimal narrowing of the neural foramina bilaterally. L3-L4: There is disk desiccation and moderate to severe height loss. Small broad-based disk bulge and facet hypertrophy result in mild to moderate narrowing of the central canal with moderate narrowing of the lateral recesses bilaterally. Disk in the sub-articular spaces and facet hypertrophy result in mild to moderate narrowing of the neural foramina bilaterally. L4-L5: There is disk desiccation and severe height loss. Anterolisthesis, pseudo-disk bulge, and facet hypertrophy result in mild to moderate narrowing of central canal with moderate to severe narrowing of the lateral recesses bilaterally. The passing L5 nerve roots appear displaced medially. Anterolisthesis and disk in the subarticular spaces result in moderate to severe narrowing of the neural foramina bilaterally. L5-S1: There is disk desiccation without significant height loss. No significant narrowing of the central canal. Disk in the subarticular spaces and facet hypertrophy result in moderate narrowing of the neural foramina bilaterally. Musculature: Normal. No edema or fatty atrophy. Other: The partially visualized retroperitoneum is unremarkable. IMPRESSION: 1. Grade 1-2 anterolisthesis of L4 on L5. 2. Multilevel degenerative disk changes, worst at L4-L5 where there are acute on chronic bony endplate changes. 3. Degenerative changes result in the following: - L1-L2: Mild narrowing of the central canal. - L2-L3: Mild narrowing of the central canal. - L3-L4: Mild to moderate narrowing of central canal with moderate narrowing of the lateral recesses bilaterally. Mild to moderate narrowing of the neural foramina bilaterally. - L4-L5: Mild to moderate narrowing of the central canal with moderate to severe narrowing of the lateral recesses bilaterally. Moderate to severe narrowing of the neural foramina bilaterally. - L5-S1: Moderate narrowing of the neural foramina bilaterally. Comment: The following findings are so common in adults without low back pain that while we report their presence, they must be interpreted with caution and in the context of the clinical situation. (Reference Cameronk et al, Spine 2001) Prevalence of findings in patients without low back pain: Disk degeneration (any evidence): 92% Disk desiccation/T2 signal loss: 83% Disk height loss: 56% Disk bulge: 64% Disk protrusion: 32% Annular tear/high intensity zone: 38% RADIA
== END 2019-02-13 13:13 | disposition home or self-care (01) ==
LOC: DI 13:12
PROVIDERS: ATTEND Physical Medicine & Rehabilitation
DX: M51.36 Other intervertebral disc degeneration, lumbar region (principal); M48.061 Spinal stenosis, lumbar region without neurogenic claudication; M47.816 Spondylosis without myelopathy or radiculopathy, lumbar region; M43.16 Spondylolisthesis, lumbar region; M47.817 Spondylosis without myelopathy or radiculopathy, lumbosacral region; M48.07 Spinal stenosis, lumbosacral region
CPT/HCPCS: 72148

== ENCOUNTER 2019-08-02 15:14 | Outpatient (CLI) | payer MEDICARE | END 2019-08-02 15:15 | disposition critical access hospital (66) | LOC: EMS 15:14 | PROVIDERS: ATTEND Surgery | DX: R42 Dizziness and giddiness (principal); R06.02 Shortness of breath; R61 Generalized hyperhidrosis; R53.1 Weakness; R68.83 Chills (without fever); R20.0 Anesthesia of skin | CPT/HCPCS: A0425; A0429 ==

== ENCOUNTER 2019-08-02 15:33 | Emergency (ER) | payer MEDICARE ==
[2019-08-02] MEDS ORDERED: SODIUM CHLORIDE 0.9% 1,000 ML IV ONE (15:49)
--- NOTE | 2019-08-02 15:52 | ED Physician Documentation ---
History of Present Illness - Stated complaint Stated Complaint: FEVER/LIGHTHEADED - Chief complaint Chief Complaint: General - History obtained from History obtained from: Patient - Additonal information Additional information: Patient is brought to the emergency department by EMS for several episodes of lightheadedness today, mainly after bending over. Patient states that she has had chills on and off for the last 4 days, but has not developed any other symptoms. She states that she actually woke up feeling fairly well and went for 2 mile walk this morning. Her symptoms of lightheadedness started after that, but did not occur during the walk. Patient denies chest pain or shortness of breath. She states that this point in time she is not feeling lightheaded. She states that she has not had any cough or fevers. No dysuria. No nausea or vomiting. Patient does admit to some right flank pain has come up over the past couple of days. She has not been exposed to anybody who is been sick with any sort of symptoms that she knows of. She states she has asthma but that her breathing has been doing fairly well. No other complaints at this time. Patient denies any cardiac history. She does have a history of hypothyroidism and takes Synthroid for this. She has not had any recent dose changes of her Synthroid. Review of Systems Ten Systems: 10 systems reviewed and negative Constitutional: reports: Reviewed and negative Eyes: reports: Reviewed and negative Ears: reports: Reviewed and negative Nose: reports: Reviewed and negative Throat: reports: Reviewed and negative Cardiac: reports: Reviewed and negative Respiratory: reports: Reviewed and negative GI: reports: Reviewed and negative : reports: Reviewed and negative Skin: reports: Reviewed and negative Musculoskeletal: reports: Reviewed and negative Neurologic: reports: Reviewed and negative Psychiatric: reports: Reviewed and negative Endocrine: reports: Reviewed and negative Immunocompromised: reports: Reviewed and negative PD PAST MEDICAL HISTORY - Past Medical History Cardiovascular: Hypertension Respiratory: None Endocrine/Autoimmune: Type 2 diabetes GI: None YARD ATTENDANT: None : None HEENT: None Psych: Depression, Anxiety Musculoskeletal: Osteoarthritis Derm: None - Past Surgical History Past Surgical History: Yes General: Appendectomy, Colonoscopy /YARD ATTENDANT: Hysterectomy, Other - Present Medications Home Medications: Ambulatory Orders Medication Instructions Recorded Confirmed Levothyroxine [Synthroid] 25 mcg PO QDAC 08/11/14 05/28/17 Meclizine HCl [Antivert] 25 mg PO Q6HR PRN #20 tablet 10/13/15 05/28/17 Albuterol Sulf [Ventolin Hfa 1 - 2 puffs INH Q4HR PRN 05/28/17 05/28/17 Inhaler] Azithromycin [Zithromax] 250 mg PO DAILY #4 tablet 05/28/17 Calcium Carbonate/Vitamin D3 1 each PO BID 05/28/17 05/28/17 [Caltrate 600 Plus D3 Tablet] Furosemide [Lasix] 20 mg PO QDBREAKFAST 05/28/17 05/28/17 Glucosamine HCl/Chondroitin Medeiros 1 each PO BID 05/28/17 05/28/17 [Endur-Flex Sr Tablet] Losartan Potassium [Cozaar] 100 mg PO DAILY 05/28/17 05/28/17 Magnesium 250 mg PO QPM 05/28/17 05/28/17 Potassium Chloride [Klor-Con 10] 10 meq PO QDBREAKFAST 05/28/17 05/28/17 Vitamin A Acetate [Vitamin A] 1 tab PO QDBREAKFAST 05/28/17 05/28/17 diphenhydrAMINE [Benadryl] 50 mg PO QPM 05/28/17 05/28/17 predniSONE [Deltasone] 20 mg PO [id number] #21 tab 05/28/17 Amox/Clav 875/125 [Augmentin] 1 each PO Q12H #20 tablet 07/25/18 Ondansetron Odt [Zofran] 4 mg TL Q6H PRN #10 tablet 07/25/18 - Allergies Allergies/Adverse Reactions: Allergies Allergy/AdvReac Type Severity Reaction Status Date / Time codeine [Codeine] Allergy Hallucinati Verified 08/02/19 15:43 ons Opioids-Meperidine and Allergy Unknown Verified 08/02/19 15:43 Related [Opioids-Meperidine & Related] Opioids-Methadone and Related Allergy Unknown Verified 08/02/19 15:43 [Opioids-Methadone & Related] - Social History Does the pt smoke?: No Smoking Status: Never smoker Does the pt drink ETOH?: Yes Does the pt have substance abuse?: No - Immunizations Immunizations are current?: No Immunizations: TDAP >10years/unknown - POLST Patient has POLST: No POLST Status: Full Code PD ED PE NORMAL - Vitals Vital signs reviewed: Yes - General General: Alert and oriented X 3, No acute distress - HEENT HEENT: Atraumatic, PERRL, EOMI, Moist mucous membranes - Neck Neck: Supple, no meningeal sign - Cardiac Cardiac: RRR, No murmur - Respiratory Respiratory: No respiratory distress, Clear bilaterally - Abdomen Abdomen: Soft, Non distended, Other (Mild right flank tenderness.) - Back Back: No CVA TTP - Derm Derm: Normal color, Warm and dry, No rash - Extremities Extremities: No deformity, Normal ROM s pain, No edema - Neuro Neuro: Alert and oriented X 3, seafood processor 2-12 intact, No motor deficit, No sensory deficit, Normal speech - Psych Psych: Normal mood, Normal affect Results - Vitals Vitals: Vital Signs - 24 hr 08/02/19 08/02/19 15:43 17:42 Temperature 37.2 C 37.1 C Heart Rate 60 68 Respiratory 15 12 Rate Blood Pressure 135/91 H 138/92 H O2 Saturation 100 100 Oxygen O2 Source Room air - Labs Labs: Laboratory Tests 08/02/19 08/02/19 08/02/19 15:58 15:58 15:58 WBC 5.7 RBC 3.82 L Hgb 12.0 Hct 35.8 L MCV 93.7 MCH 31.4 H MCHC 33.5 RDW 12.5 Plt Count 170 MPV 9.6 Neut # (Auto) 3.9 Lymph # (Auto) 1.1 L [place] # (Auto) 0.6 Eos # (Auto) 0.0 Baso # (Auto) 0.1 Absolute Nucleated RBC 0.00 Nucleated RBC % 0.0 Sodium 133 L Potassium 3.6 Chloride 101 Carbon Dioxide 23 Anion Gap 9.0 BUN 23 H Creatinine 1.0 Estimated GFR (MDRD) 53 L Glucose 99 Calcium 8.7 Total Bilirubin 0.6 AST 17 ALT 13 Alkaline Phosphatase 42 Troponin I High Sens 8.0 Total Protein 6.5 L Albumin 3.9 Globulin 2.6 Albumin/Globulin Ratio 1.5 Lipase 47 TSH Urine Color Urine Clarity Urine pH Ur Specific [place] Urine Protein Urine Glucose (UA) Urine Ketones Urine Occult Blood Urine Nitrite Urine Bilirubin Urine Urobilinogen Ur Leukocyte Esterase Ur Microscopic Review Urine Culture Comments 08/02/19 08/02/19 15:58 16:48 WBC RBC Hgb Hct MCV MCH MCHC RDW Plt Count MPV Neut # (Auto) Lymph # (Auto) [place] # (Auto) Eos # (Auto) Baso # (Auto) Absolute Nucleated RBC Nucleated RBC % Sodium Potassium Chloride Carbon Dioxide Anion Gap BUN Creatinine Estimated GFR (MDRD) Glucose Calcium Total Bilirubin AST ALT Alkaline Phosphatase Troponin I High Sens Total Protein Albumin Globulin Albumin/Globulin Ratio Lipase TSH 3.63 Urine Color YELLOW Urine Clarity CLEAR Urine pH 6.5 Ur Specific [place] 1.010 Urine Protein NEGATIVE Urine Glucose (UA) NEGATIVE Urine Ketones NEGATIVE Urine Occult Blood TRACE-INTA Urine Nitrite NEGATIVE Urine Bilirubin NEGATIVE Urine Urobilinogen 0.2 (NORMAL) Ur Leukocyte Esterase NEGATIVE Ur Microscopic Review NOT INDICATED Urine Culture Comments NOT INDICATED PD MEDICAL DECISION MAKING - ED course Complexity details: reviewed old records, reviewed results, re-evaluated patient, considered differential, d/w patient ED course: The patient was actually very well-appearing in the emergency department, and I did not feel that she was likely to have coded or any other respiratory illness. I did feel she should be evaluated for potential causes of her chills and lightheadedness, such as UTI, anemia, inadequate thyroid replacement, and cardiac causes, among others. She was worked up with labs, urinalysis, and EKG.The patient's work-up was unremarkable for the most part, but did demonstrate a negative urinalysis with normal white count but lymphopenia. The patient did not have respiratory symptoms, and had very vague, nonspecific symptoms of chills. Given her age and the lymphopenia however, I did go ahead and test her for covid-19, due to her high risk age category and her underlying asthma. This is pending at this time. Otherwise, the patient is stable for discharge home. We have discussed that if the patient develops any Fever, shortness of breath, cough, or other respiratory difficulties, she should return to the emergency department immediately. Departure - Departure Disposition: 01 Home, Self Care Clinical Impression: Chills (without fever), Lightheadedness Condition: Good Instructions: ED Viral Syndrome Comments: Your labs look fairly good overall. Your white blood cell count is normal, though 1 certain type of white blood cells is a little bit low. As this can occasionally be associated with coronavirus, you have been swabbed for this today. Your symptoms do not sound like Covid, and most likely are not; however, as a precaution, you have been tested for this. Your results should be back in 1 to 3 days. You will be notified if they do come back positive.In the meantime, please be sure to drink plenty of fluids. Get rest as needed. There is no evidence of any other infectious cause of your symptoms, including a urinary tract infection. Most likely, you have 1 of the many viruses that are going around right now. Most of these will pass on their own without further complication. If you begin to develop shortness of breath, cough, fevers, chest pain, or generally worsening symptoms, please return to the emergency department.
[2019-08-02 16:08] LABS: BASOPHILS # (AUTO) 0.1 10^3/uL (0.0-0.1); BASOPHILS % (AUTO) 0.9 %; EOSINOPHILS % (AUTO) 0.7 %; LYMPHOCYTES # (AUTO) 1.1 10^3/uL (1.5-3.5); LYMPHOCYTES % (AUTO) 18.5 %; MEAN CORPUSCULAR HEMOGLOBIN 31.4 pg (27.0-31.0); MEAN CORPUSCULAR HGB CONC 33.5 g/dL (32.0-36.0); MEAN CORPUSCULAR VOLUME 93.7 fL (81.0-99.0); MEAN PLATELET VOLUME 9.6 fL (7.9-10.8); MONOCYTES # (AUTO) 0.6 10^3/uL (0.0-1.0); MONOCYTES % (AUTO) 9.9 %; NEUTROPHILS # (AUTO) 3.9 10^3/uL (1.5-6.6); NEUTROPHILS % (AUTO) 69.5 %; PLT - PLATELET COUNT 170 10^3/uL (130-450); RED BLOOD COUNT 3.82 10^6/uL (4.20-5.40); RED CELL DISTRIBUTION WIDTH 12.5 % (12.0-15.0); WHITE BLOOD COUNT 5.7 x10^3/uL (4.8-10.8)
[2019-08-02 16:21] LABS: ALBUMIN 3.9 g/dL (3.2-5.5); ALBUMIN/GLOBULIN RATIO 1.5 (1.0-2.2); BILIRUBIN,TOTAL 0.6 mg/dL (0.2-1.0); CALCIUM 8.7 mg/dL (8.5-10.3); TOTAL PROTEIN 6.5 g/dL (6.7-8.2)
[2019-08-02 17:14] LABS: BILIRUBIN,URINE NEGATIVE (NEGATIVE); GLUCOSE, URINE (UA) NEGATIVE (NEGATIVE); KETONES,URINE (UA) NEGATIVE (NEGATIVE); LEUKOCYTE ESTERASE, URINE NEGATIVE (NEGATIVE); NITRITE,URINE NEGATIVE (NEGATIVE); OCCULT BLOOD,URINE TRACE-INTA (NEGATIVE); PH,URINE 6.5 PH (5.0-7.5); PROTEIN,URINE NEGATIVE (NEGATIVE); UROBILINOGEN,URINE 0.2 (NORMAL) E.U./dL (NORMAL)
[2019-08-02 17:26] LABS: CLARITY,URINE CLEAR (CLEAR)
[2019-08-02 17:42] VITALS: BP 138/92
== END 2019-08-02 19:09 | disposition home or self-care (01) ==
LOC: EDUNIT# → ED 15:33
DX: R42 Dizziness and giddiness (principal); R68.83 Chills (without fever); I10 Essential (primary) hypertension; E11.9 Type 2 diabetes mellitus without complications; E03.9 Hypothyroidism, unspecified
CPT/HCPCS: 36415; 80053; 81001; 81003; 81599; 83690; 84443; 84484; 85025; 87086; 93005; 96360; 99284

== ENCOUNTER 2020-07-04 07:53 | Emergency (ER) | payer MEDICARE ==
--- NOTE | 2020-07-04 07:58 | ED Physician Documentation ---
PD HPI CHEST PAIN - Stated complaint Stated Complaint: CHEST PX/SOA - History obtained from History obtained from: Patient - History of Present Illness Timing - onset: How many hours ago (4 1/2 hours ago (she states she awoke abruptly with anterior chest pain, dyspnea, and noted the clock at 03:22 am. It tapered over half hour or so, but not fully resolved into this morning.), Today Timing - onset during: Sleep Timing - duration: Hours Timing - details: Abrupt onset, Still present Quality: Pressure, Tightness, Aching. No: Sharp, Tearing Location: Substernal, Left chest Radiation: No: Jaw, Neck, Back Improved by: No: Rest Worsened by: No: Inspiration, Movement Associated symptoms: Shortness of air, Feeling faint / dizzy, Other (noted some mild ankle swelling the past 1-2 days). No: Diaphoresis, Nausea, Palpitations Similar symptoms before: Has not had sx before (She states she works out regularly with 3 mile walks several times a week and weight training and strengthening regularly as well. She did notice some mild discomfort with her activity yesterday but otherwise has not had exertional chest pain or dyspnea as a pattern.) Recently seen: Not recently seen Review of Systems Constitutional: denies: Fever, Chills Nose: denies: Rhinorrhea / runny nose, Congestion Throat: denies: Sore throat Cardiac: reports: Chest pain / pressure (just this morning), Pedal edema (occasional - did notice some swelling the past couple days.). denies: Palpitations, Calf pain Respiratory: reports: Cough (mild cough each morning - no recent change.) GI: denies: Abdominal Pain, Nausea, Vomiting, Diarrhea, Bloody / black stool Skin: denies: Rash, Lesions Musculoskeletal: reports: Extremity swelling Neurologic: denies: Generalized weakness, Near syncope, Headache PD PAST MEDICAL HISTORY - Past Medical History Cardiovascular: Congestive heart failure, Hypertension, Other (denies prior CO. She does not know cause of prior CHF episode in the past. 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 : None HEENT: None Psych: Depression, Anxiety Musculoskeletal: Osteoarthritis Derm: None - Past Surgical History Past Surgical History: Yes General: Appendectomy, Colonoscopy /MACHINE OPERATOR ASSISTANT: Hysterectomy, Other - Present Medications Home Medications: Ambulatory Orders Medication Instructions Recorded Confirmed Levothyroxine [Synthroid] 25 mcg PO QDAC 08/11/14 07/04/20 Calcium Carbonate/Vitamin D3 1 each PO BID 05/28/17 07/04/20 [Caltrate 600 Plus D3 Tablet] Furosemide [Lasix] 20 mg PO QDBREAKFAST 05/28/17 07/04/20 Glucosamine HCl/Chondroitin Medeiros 1 each PO BID 05/28/17 07/04/20 [Endur-Flex Sr Tablet] Losartan Potassium [Cozaar] 100 mg PO DAILY 05/28/17 07/04/20 Magnesium 250 mg PO QPM 05/28/17 07/04/20 Potassium Chloride [Klor-Con 10] 10 meq PO QDBREAKFAST 05/28/17 07/04/20 - Allergies Allergies/Adverse Reactions: Allergies Allergy/AdvReac Type Severity Reaction Status Date / Time codeine [Codeine] Allergy Hallucinati Verified 07/04/20 08:00 ons Opioids-Meperidine and Allergy Unknown Verified 07/04/20 08:00 Related [Opioids-Meperidine & Related] Opioids-Methadone and Related Allergy Unknown Verified 07/04/20 08:00 [Opioids-Methadone & Related] - Social History Does the pt smoke?: No Smoking Status: Never smoker Does the pt drink ETOH?: Yes Does the pt have substance abuse?: No - Immunizations Immunizations are current?: No Immunizations: TDAP >10years/unknown - POLST Patient has POLST: No POLST Status: Full Code PD ED PE NORMAL - Vitals Vital signs reviewed: Yes - General General: Alert and oriented X 3, No acute distress, Well developed/nourished - HEENT HEENT: Moist mucous membranes, Pharynx benign - Neck Neck: Supple, no meningeal sign, No adenopathy - Cardiac Cardiac: RRR, No murmur - Respiratory Respiratory: Clear bilaterally, Other (no chestwall tenderness) - Abdomen Abdomen: Soft, Non tender - Derm Derm: Normal color, Warm and dry - Extremities Extremities: No tenderness to palpate, Normal ROM s pain, No edema, No calf tenderness / cord - Neuro Neuro: Alert and oriented X 3, No motor deficit, Normal speech Eye Opening: Spontaneous Motor: Obeys Commands Verbal: Oriented GCS Score: 15 - Psych Psych: Normal mood, Normal affect Results - Vitals Vitals: Vital Signs - 24 hr 07/04/20 07/04/20 07/04/20 08:00 08:32 09:02 Temperature 36.9 C Heart Rate 58 L 57 L 50 L Respiratory 18 22 18 Rate Blood Pressure 144/102 H 115/46 L 142/60 H O2 Saturation 98 95 97 07/04/20 07/04/20 07/04/20 09:30 09:42 10:00 Temperature Heart Rate 46 L 48 L 48 L Respiratory 18 19 19 Rate Blood Pressure 91/73 130/85 H 166/62 H O2 Saturation 95 96 96 Oxygen O2 Source Room air - EKG (time done) 07:54 Rate: Rate (enter#) (58) Rhythm: Sinus bradycardia [place]: Normal Intervals: Normal [place] QRS: Normal Ischemia: Normal ST segments, Non specific changes (t flattening, nonspec changes inferolaterally.). No: ST elevation c/w ischemia, ST depression - Labs Labs: Laboratory Tests 07/04/20 07/04/20 07/04/20 08:26 08:26 08:26 WBC 4.8 RBC 4.21 Hgb 13.2 Hct 39.9 MCV 94.8 MCH 31.4 H MCHC 33.1 RDW 12.7 Plt Count 167 MPV 10.0 Neut # (Auto) 2.8 Lymph # (Auto) 1.2 L [place] # (Auto) 0.5 Eos # (Auto) 0.2 Baso # (Auto) 0.1 Absolute Nucleated RBC 0.00 Nucleated RBC % 0.0 D-Dimer Sodium 139 Potassium 3.6 Chloride 98 L Carbon Dioxide 31 Anion Gap 10.0 BUN 14 Creatinine 0.9 Estimated GFR (MDRD) 60 L Glucose 123 H Calcium 9.3 Total Bilirubin 0.7 AST 18 ALT 12 Alkaline Phosphatase 50 Troponin I High Sens 7.3 B-Natriuretic Peptide Total Protein 6.7 Albumin 3.8 Globulin 2.9 Albumin/Globulin Ratio 1.3 Lipase 34 07/04/20 07/04/20 08:26 08:38 WBC RBC Hgb Hct MCV MCH MCHC RDW Plt Count MPV Neut # (Auto) Lymph # (Auto) [place] # (Auto) Eos # (Auto) Baso # (Auto) Absolute Nucleated RBC Nucleated RBC % D-Dimer 237.2 Sodium Potassium Chloride Carbon Dioxide Anion Gap BUN Creatinine Estimated GFR (MDRD) Glucose Calcium Total Bilirubin AST ALT Alkaline Phosphatase Troponin I High Sens B-Natriuretic Peptide 161 H Total Protein Albumin Globulin Albumin/Globulin Ratio Lipase - Rads (name of study) chest xray Radiology: Prelim report reviewed (no acute process), See rad report PD MEDICAL DECISION MAKING - ED course Complexity details: reviewed results, considered differential (abrupt pain and dyspnea awoken from sleep. Will get typical CP testing. ), d/w patient Departure - Departure Disposition: 01 Home, Self Care Clinical Impression: Chest pain at rest Dyspnea Qualifiers: Dyspnea type: shortness of breath Qualified Code(s): R06.02 - Shortness of breath Condition: Stable Record reviewed to determine appropriate education?: Yes Instructions: ED Chest Pain NonCardiac Follow-Up: Alla Lozada MD [Primary Care Provider] - Comments: Your EKG, chest x-ray, blood tests are normal. No signs of heart injury, heart failure, blood clots, fluid around the lungs or collapsed lung. It is unclear the cause of your symptoms. Consider possible bronchospasm/asthma. For further episodes or any trouble breathing with activity, try your albuterol inhaler and see if it helps. If you notice a pattern of trouble breathing or chest discomfort with activity, follow-up with your primary care. Return to the ER if needed for repeat ep isodes unrelieved with inhaler or such. Discharge Date/Time: 07/04/20 10:20
[2020-07-04] MEDS ORDERED: NITROGLYCERIN SL 0.4 MG TABLET SL STA (08:23)
[2020-07-04 08:32] LABS: BASOPHILS # (AUTO) 0.1 10^3/uL (0.0-0.1); BASOPHILS % (AUTO) 1.2 %; EOSINOPHILS # (AUTO) 0.2 10^3/uL (0.0-0.7); EOSINOPHILS % (AUTO) 4.3 %; HCT - HEMATOCRIT 39.9 % (37.0-47.0); HGB - HEMOGLOBIN 13.2 g/dL (12.0-16.0); LYMPHOCYTES # (AUTO) 1.2 10^3/uL (1.5-3.5); LYMPHOCYTES % (AUTO) 25.5 %; MEAN CORPUSCULAR HEMOGLOBIN 31.4 pg (27.0-31.0); MEAN CORPUSCULAR HGB CONC 33.1 g/dL (32.0-36.0); MEAN CORPUSCULAR VOLUME 94.8 fL (81.0-99.0); MONOCYTES # (AUTO) 0.5 10^3/uL (0.0-1.0); MONOCYTES % (AUTO) 10.4 %; NEUTROPHILS # (AUTO) 2.8 10^3/uL (1.5-6.6); NEUTROPHILS % (AUTO) 58.2 %; PLT - PLATELET COUNT 167 10^3/uL (130-450); RED BLOOD COUNT 4.21 10^6/uL (4.20-5.40); RED CELL DISTRIBUTION WIDTH 12.7 % (12.0-15.0); WHITE BLOOD COUNT 4.8 x10^3/uL (4.8-10.8)
--- NOTE | 2020-07-04 08:45 | XRAY Report ---
PROCEDURE: Chest 1 View X-Ray INDICATIONS: Chest pain TECHNIQUE: One view of the chest was acquired. COMPARISON: 07/25/2018 FINDINGS: Surgical changes and devices: Left breast lumpectomy clips. Lungs and pleura: No pleural effusions or pneumothorax. Lungs are clear. Mediastinum: Mediastinal contours appear normal. Heart size is normal. Bones and chest wall: No suspicious bony lesions. Overlying soft tissues appear unremarkable. IMPRESSION: No evidence acute pulmonary process. Reviewed by: Perez Haynes MD on 07/04/2020 7:44 AM [facility] Approved by: Perez Haynes MD on 07/04/2020 7:44 AM [facility] Station ID: [id number]
[2020-07-04 08:59] LABS: ALBUMIN 3.8 g/dL (3.2-5.5); ALBUMIN/GLOBULIN RATIO 1.3 (1.0-2.2); BILIRUBIN,TOTAL 0.7 mg/dL (0.2-1.0); CALCIUM 9.3 mg/dL (8.5-10.3); CREATININE 0.9 mg/dL (0.4-1.0); POTASSIUM 3.6 mmol/L (3.5-5.0); TOTAL PROTEIN 6.7 g/dL (6.7-8.2)
[2020-07-04] MEDS ORDERED: SODIUM CHLORIDE 0.9% 500 ML IV STA (09:42)
[2020-07-04 10:08] VITALS: BP 166/62
== END 2020-07-04 10:20 | disposition home or self-care (01) ==
LOC: ED 07:53
DX: R07.89 Other chest pain (principal); R06.02 Shortness of breath; R00.1 Bradycardia, unspecified; I10 Essential (primary) hypertension; E11.9 Type 2 diabetes mellitus without complications
CPT/HCPCS: 36415; 71045; 80053; 83690; 83880; 84484; 85025; 85379; 93005; 99284; A9270

== ENCOUNTER 2020-09-12 18:35 | Emergency (ER) | payer MEDICARE ==
--- OUTSIDE RECORDS SUMMARY | 2020-09-12 18:37 | EXTERNAL MEDICAL SUMMARY RPT | Continuity of Care Document ---
:1935 Demographics Phone Unavailable Preferred Language Rwandan Marital Status Unknown Catholic Affiliation Unknown Race Unknown Ethnic Group Unknown Author Organization [place] Address [address] [phone] Phone Care Team Providers Name Role Phone Dannhaur Unavailable Unavailable Problems date description facility [id number] Headache, unspecified [facility]
--- OUTSIDE RECORDS SUMMARY | 2020-09-12 18:39 | EXTERNAL MEDICAL SUMMARY RPT | Continuity of Care Document ---
:1935 Demographics Phone Unavailable Preferred Language Moldovan Marital Status Unknown Samaritan Affiliation Unknown Race Unknown Ethnic Group Unknown Author Organization [place] Address [address] [phone] Phone Care Team Providers Name Role Phone Dannhaur Unavailable Unavailable Problems date description facility [id number] Headache, unspecified [facility]
[2020-09-12 19:00] LABS: BASOPHILS # (AUTO) 0.1 10^3/uL (0.0-0.1); BASOPHILS % (AUTO) 0.6 %; EOSINOPHILS # (AUTO) 0.1 10^3/uL (0.0-0.7); EOSINOPHILS % (AUTO) 0.7 %; HCT - HEMATOCRIT 39.1 % (37.0-47.0); HGB - HEMOGLOBIN 13.4 g/dL (12.0-16.0); LYMPHOCYTES # (AUTO) 1.9 10^3/uL (1.5-3.5); LYMPHOCYTES % (AUTO) 15.8 %; MEAN CORPUSCULAR HEMOGLOBIN 31.4 pg (27.0-31.0); MEAN CORPUSCULAR HGB CONC 34.3 g/dL (32.0-36.0); MEAN CORPUSCULAR VOLUME 91.6 fL (81.0-99.0); MEAN PLATELET VOLUME 9.5 fL (7.9-10.8); MONOCYTES # (AUTO) 0.8 10^3/uL (0.0-1.0); MONOCYTES % (AUTO) 7.1 %; NEUTROPHILS # (AUTO) 8.8 10^3/uL (1.5-6.6); NEUTROPHILS % (AUTO) 75.4 %; PLT - PLATELET COUNT 225 10^3/uL (130-450); RED BLOOD COUNT 4.27 10^6/uL (4.20-5.40); RED CELL DISTRIBUTION WIDTH 12.4 % (12.0-15.0); WHITE BLOOD COUNT 11.7 x10^3/uL (4.8-10.8)
[2020-09-12 19:06] LABS: BILIRUBIN,URINE NEGATIVE (NEGATIVE); GLUCOSE, URINE (UA) NEGATIVE (NEGATIVE); KETONES,URINE (UA) 15 mg/dL (NEGATIVE); LEUKOCYTE ESTERASE, URINE NEGATIVE (NEGATIVE); NITRITE,URINE NEGATIVE (NEGATIVE); OCCULT BLOOD,URINE SMALL (NEGATIVE); PH,URINE 6.5 PH (5.0-7.5); PROTEIN,URINE NEGATIVE (NEGATIVE); UROBILINOGEN,URINE 0.2 (NORMAL) E.U./dL (NORMAL)
[2020-09-12] MEDS ORDERED: fentaNYL 100 MCG/2 ML VIAL IVP STA ×3 (19:07→23:40)
[2020-09-12 19:13] LABS: ALBUMIN 4.4 g/dL (3.2-5.5); ALBUMIN/GLOBULIN RATIO 1.6 (1.0-2.2); BILIRUBIN,TOTAL 0.9 mg/dL (0.2-1.0); CREATININE 0.9 mg/dL (0.4-1.0); POTASSIUM 3.5 mmol/L (3.5-5.0); TOTAL PROTEIN 7.1 g/dL (6.7-8.2)
[2020-09-12 19:16] LABS: BACTERIA,URINE Rare /HPF (None Seen); CLARITY,URINE CLEAR (CLEAR); SQUAMOUS EPITHELIAL CELL,UR RARE Squamous (<= Few); WBC,URINE 0-3 /HPF (0-5)
[2020-09-12] MEDS ORDERED: IOPAMIDOL-300 100 ML VIAL ONE (19:29)
[2020-09-12] MEDS ORDERED: KETOROLAC 30 MG/ML VIAL IVP STA (19:31)
[2020-09-12] MEDS ORDERED: IOPAMIDOL-300 100 ML VIAL IVP ONE (20:05)
--- NOTE | 2020-09-12 20:14 | ED Physician Documentation ---
PD HPI ABD PAIN - Stated complaint Stated Complaint: ABD PX - Chief complaint Chief Complaint: Abd Pain - History obtained from History obtained from: Patient - History of Present Illness Timing - onset: How many hours ago (12) Timing - details: Gradual onset Pain level max: 10 Pain level now: 10 Quality: Aching, Pain Location: Epigastric Associated symptoms: No: Fever, Nausea, Vomiting, Hematemesis, Diarrhea, Constipation, Melena, Hematochezia, Dysuria - Additional information Additional information: Patient is an 85-year-old female who presents to the emergency department with abdominal pain ongoing for the past 12 hours. She states started about 7 AM this morning. Has gradually worsened throughout the day. She states nothing makes it better or worse. Started epigastric and is now spread all over her abdomen. Has not had similar symptoms previously. No nausea or vomiting. No diarrhea or constipation. No changes to her medications. Does use cannabis oil at night. Review of Systems Ten Systems: 10 systems reviewed and negative Constitutional: denies: Fever, Chills Ears: denies: Ear pain Nose: denies: Rhinorrhea / runny nose, Congestion Cardiac: denies: Chest pain / pressure Respiratory: denies: Cough GI: denies: Vomiting, Diarrhea, Hematemesis, Bloody / black stool : denies: Dysuria, Frequency Skin: denies: Rash Musculoskeletal: denies: Neck pain, Back pain Neurologic: denies: Headache PD PAST MEDICAL HISTORY - Past Medical History Past Medical History: Yes Cardiovascular: Congestive heart failure, Hypertension, Other Respiratory: None Endocrine/Autoimmune: Type 2 diabetes GI: None INSTRUCTION DEAN: None : None HEENT: None Psych: Depression, Anxiety Musculoskeletal: Osteoarthritis Derm: None - Past Surgical History Past Surgical History: Yes General: Appendectomy, Colonoscopy /INSTRUCTION DEAN: Hysterectomy, Other - Present Medications Home Medications: Ambulatory Orders Medication Instructions Recorded Confirmed Levothyroxine [Synthroid] 25 mcg PO QDAC 08/11/14 09/12/20 Calcium Carbonate/Vitamin D3 1 each PO BID 05/28/17 09/12/20 [Caltrate 600 Plus D3 Tablet] Furosemide [Lasix] 20 mg PO QDBREAKFAST 05/28/17 09/12/20 Glucosamine HCl/Chondroitin Medeiros 1 each PO BID 05/28/17 09/12/20 [Endur-Flex Sr Tablet] Losartan Potassium [Cozaar] 100 mg PO DAILY 05/28/17 09/12/20 Magnesium 250 mg PO QPM 05/28/17 09/12/20 Potassium Chloride [Klor-Con 10] 10 meq PO QDBREAKFAST 05/28/17 09/12/20 traZODone [Desyrel] 50 mg PO DAILY 09/12/20 09/12/20 - Allergies Allergies/Adverse Reactions: Allergies Allergy/AdvReac Type Severity Reaction Status Date / Time codeine [Codeine] Allergy Hallucinati Verified 09/12/20 18:41 ons Opioids-Meperidine and Allergy Unknown Verified 09/12/20 18:41 Related [Opioids-Meperidine & Related] Opioids-Methadone and Related Allergy Unknown Verified 09/12/20 18:41 [Opioids-Methadone & Related] - Social History Does the pt smoke?: No Smoking Status: Never smoker Does the pt drink ETOH?: Yes Does the pt have substance abuse?: No - Immunizations Immunizations are current?: No Immunizations: TDAP >10years/unknown - POLST Patient has POLST: No POLST Status: Full Code PD ED PE NORMAL - Vitals Vital signs reviewed: Yes - General General: Alert and oriented X 3, Well developed/nourished, Other (appears in pain) - HEENT HEENT: PERRL, Moist mucous membranes - Neck Neck: Supple, no meningeal sign - Cardiac Cardiac: RRR - Respiratory Respiratory: No respiratory distress, Clear bilaterally - Abdomen Abdomen: Soft, Non distended, Other (Diffusely tender to palpation. No peritoneal signs) - Back Back: No spinal TTP - Derm Derm: Warm and dry - Extremities Extremities: No edema, No calf tenderness / cord - Neuro Neuro: Alert and oriented X 3 - Psych Psych: Normal mood, Normal affect Results - Vitals Vitals: Vital Signs - 24 hr 09/12/20 09/12/20 09/12/20 18:41 20:23 21:28 Temperature 36.6 C 36.5 C 36.5 C Heart Rate 65 61 60 Respiratory 16 16 15 Rate Blood Pressure 177/76 H 181/69 H 177/67 H O2 Saturation 99 100 99 Oxygen O2 Source Room air - Labs Labs: Laboratory Tests 09/12/20 09/12/20 09/12/20 18:47 18:54 18:54 WBC 11.7 H RBC 4.27 Hgb 13.4 Hct 39.1 MCV 91.6 MCH 31.4 H MCHC 34.3 RDW 12.4 Plt Count 225 MPV 9.5 Neut # (Auto) 8.8 H Lymph # (Auto) 1.9 [place] # (Auto) 0.8 Eos # (Auto) 0.1 Baso # (Auto) 0.1 Absolute Nucleated RBC 0.00 Nucleated RBC % 0.0 Sodium 128 L Potassium 3.5 Chloride 92 L Carbon Dioxide 26 Anion Gap 10.0 BUN 13 Creatinine 0.9 Estimated GFR (MDRD) 60 L Glucose 124 H Calcium 9.0 Total Bilirubin 0.9 AST 20 ALT 14 Alkaline Phosphatase 54 Total Protein 7.1 Albumin 4.4 Globulin 2.7 Albumin/Globulin Ratio 1.6 Lipase 29 Urine Color YELLOW Urine Clarity CLEAR Urine pH 6.5 Ur Specific [place] 1.020 Urine Protein NEGATIVE Urine Glucose (UA) NEGATIVE Urine Ketones 15 H Urine Occult Blood SMALL H Urine Nitrite NEGATIVE Urine Bilirubin NEGATIVE Urine Urobilinogen 0.2 (NORMAL) Ur Leukocyte Esterase NEGATIVE Urine RBC 11-25 H Urine WBC 0-3 Ur Squamous Epith Cells RARE Squamous Urine Bacteria Rare Ur Microscopic Review INDICATED Urine Culture Comments NOT INDICATED - Rads (name of study) RUQ US Radiology: Prelim report reviewed, EMP read contemporaneously, See rad report CT abd.pelvis Radiology: Prelim report reviewed, EMP read contemporaneously, See rad report PD MEDICAL DECISION MAKING - ED course Complexity details: reviewed results, re-evaluated patient, considered differential, d/w patient ED course: Is an 85-year-old female with abdominal pain today. She appears to have choledocholithiasis with cholecystitis. Pain well controlled. Started on Zosyn. Discussed the case with Dr. Wheeler, general surgery who recommends transfer to a facility with GI. [facility] was contacted at [phone]. Patient signed out to Dr. Cope awaiting call back from [facility] for transfer. CT abd/pelvis IMPRESSION: 1. Distended gallbladder. Consider gallbladder ultrasound. 2. Diverticulosis without evidence of diverticulitis. RUQ US IMPRESSION: 1. Choledocholithiasis with gallbladder dilatation and common bile duct dilatation. 2. Distended gallbladder with wall thickening and multiple stones consistent with acute cholecystitis. Departure - Departure Disposition: 02 Transfer Acute Care Hosp Clinical Impression: Choledocholithiasis with acute cholecystitis Condition: Stable
--- NOTE | 2020-09-12 20:35 | CT Report ---
PROCEDURE: Abdomen/Pelvis W INDICATIONS: diffuse abd pain CONTRAST: IV CONTRAST: Isovue 300 ml: 100 PO CONTRAST: *NO PO CONTRAST TECHNIQUE: After the administration of 100 mL contrast, 5 mm thick sections acquired from the diaphragms to the symphysis. 5 mm thick coronal and sagittal reformats were acquired. For radiation dose reduction, t he following was used: automated exposure control, adjustment of mA and/or kV according to patient s ize. COMPARISON: 11/19/2011 FINDINGS: Image quality: Excellent. ABDOMEN: Lung bases: Lung bases are clear. Heart size is normal. Solid organs: Liver and spleen are normal in size and enhancement. Gallbladder is distended. There is no wall thickening or pericholecystic fluid/inflammation. Biliary system is non dilated. Pancrea s enhances normally. No adrenal nodules. Kidneys demonstrate normal size and enhancement, without h ydronephrosis. Peritoneum and bowel: The distal esophagus, stomach, small bowel, and large bowel have a normal calib er. The large bowel has diverticulosis of the left colon and sigmoid colon with no evidence of divert iculitis. Nodes and vessels: No retroperitoneal or mesenteric adenopathy by size criteria. Aorta an d inferior vena cava are normal in size. Miscellaneous: No ventral hernias. PELVIS: Genitourinary: Bladder wall thickness is normal. Miscellaneous: No inguinal hernias or adenopathy. Bones: No suspicious bony lesions. Multilevel degenerative changes are seen with disc space narrowi ng at L4-5. No vertebral body compression fractures. IMPRESSION: 1. Distended gallbladder. Consider gallbladder ultrasound.. 2. Diverticulosis without evidence of diverticulitis. Reviewed by: Eugene Tony on 09/12/2020 8:33 PM PDT Approved by: Eugene Tony on 09/12/2020 8:33 PM PDT Station ID: [id number]
--- NOTE | 2020-09-12 21:42 | Ultrasound Report ---
PROCEDURE: Abdomen Limited INDICATIONS: RUQ abd pain TECHNIQUE: Real-time focused scanning was performed of the abdomen, with image documentation. COMPARISON: CT of the abdomen and pelvis today FINDINGS: Liver: The liver measures 13.6 cm. There is a hemangioma measuring 10.8 x 1.3 x 1.6 cm in the right l obe. No intrahepatic biliary ductal dilatation. Biliary/gallbladder: The gallbladder is distended with wall thickening measuring greater than 4 mm. T here is a stone in the common bile duct. The common bile duct measures 10 mm. Multiple gallstones are seen layering dependently in the gallbladder. Pancreas: The pancreatic head and body are normal. The right kidney measures 10.3 cm in length. There is no solid or cystic mass. IMPRESSION: 1. Choledocholithiasis with gallbladder dilatation and common bile duct dilatation. 2. Distended gallbladder with wall thickening and multiple stones consistent with acute cholecystitis . Reviewed by: Eugene Tony on 09/12/2020 9:41 PM PDT Approved by: Eugene Tony on 09/12/2020 9:41 PM PDT Station ID: [id number]
[2020-09-12] MEDS ORDERED: PIPERACILLIN/TAZOBACTAM 3.375 GM in SODIUM CHLORIDE 0.9% MINIBAG 100 ML IV STA (21:53)
[2020-09-12] MEDS ORDERED: SODIUM CHLORIDE 0.9% 1,000 ML IV STA (21:54)
[2020-09-12 22:21] LABS: B. PARAPERTUSSIS- RESP PCR PAN NOT DETECTED; B. PERTUSSIS- RESP PCR PANEL NOT DETECTED; C. PNEUMONIAE- RESP PCR PANEL NOT DETECTED; CORONAVIRUS 229E-RESP PCR NOT DETECTED; CORONAVIRUS HKU1-RESP PCR NOT DETECTED; CORONAVIRUS NL63-RESP PCR NOT DETECTED; CORONAVIRUS OC43-RESP PCR NOT DETECTED; HUMAN METAPNEUMOVIRUS NOT DETECTED; INFLUENZA A- RESP PCR PANEL NOT DETECTED; INFLUENZA B - RESP PCR PANEL NOT DETECTED; M. PNEUMONIAE- RESP PCR PANEL NOT DETECTED; PARAINFLUENZA VIRUS 1 NOT DETECTED; PARAINFLUENZA VIRUS 2 NOT DETECTED; PARAINFLUENZA VIRUS 3 NOT DETECTED; PARAINFLUENZA VIRUS 4 NOT DETECTED; RHINOVIRUS/ENTEROVIRUS NOT DETECTED; RSV- RESP PCR PANEL NOT DETECTED; SARS-CoV-2 -RESP PCR PANEL NOT DETECTED
--- NOTE | 2020-09-12 23:20 | ED Physician Documentation ---
ED Addendum - Addendum Addendum: 09/12/20 23:17 Received sign out from Dr. Sabillon at end of his shift, currently awaiting call from [facility] to discuss case. Dr. Sabillon had discussed the case with Dr. Wheeler (credit collection associate surgeon for [facility]) who recommended transfer to ERCP-capable facility. At 23:[address] Smith, GI credit collection associate at [place]. He agrees transfer would be appropriate but recommends transfer to surgical service. Transfer center at [place] will now page surgical service. 09/12/20 23:46 D/W Dr. Mora, surgical service at [facility]/[facility], accepts transfer to [place] I updated patient and family (at bedside) with plan. She is comfortable (pain is adequately controlled at this time), understands the potential for surgical procedure, and wants to have whatever procedure(s) is/are recommended.
[2020-09-13 00:03] VITALS: BP 151/87
== END 2020-09-13 00:27 | disposition short-term general hospital (02) ==
LOC: ED 18:35
DX: K80.42 Calculus of bile duct with acute cholecystitis without obstruction (principal); Z20.822 Contact with and (suspected) exposure to COVID-19; I10 Essential (primary) hypertension; E11.9 Type 2 diabetes mellitus without complications
CPT/HCPCS: 36415; 74177; 76705; 80053; 81001; 83690; 85025; 87631; 96365; 96375; 96376; 99285; Q9967; 0202U; 81003; 87086

== ENCOUNTER 2020-09-13 00:17 | Outpatient (CLI) | payer MEDICARE | END 2020-09-13 23:59 | disposition short-term general hospital (02) | LOC: EMS 00:17 | PROVIDERS: ATTEND Emergency Medicine | DX: K80.40 Calculus of bile duct with cholecystitis, unspecified, without obstruction (principal) | CPT/HCPCS: A0425; A0428 ==

== ENCOUNTER 2020-09-19 17:52 | Emergency (ER) | payer MEDICARE ==
[2020-09-19] MEDS ORDERED: IPRATROPIUM/ALBUTEROL 3 ML NEB INH STA (17:54)
--- OUTSIDE RECORDS SUMMARY | 2020-09-19 17:55 | EXTERNAL MEDICAL SUMMARY RPT | Continuity of Care Document ---
:1935 Demographics Phone Unavailable Preferred Language Tuvaluan Marital Status Unknown Hindu Affiliation Unknown Race Unknown Ethnic Group Unknown Author Organization [place] Address [address] [place] [address] Phone Care Team Providers Name Role Phone Alla Hilton Unavailable Unavailable Problems date description facility [id number] Choledocolithiasis [facility] [employer] [id number] Headache, unspecified [facility]
[2020-09-19] MEDS ORDERED: IOVERSOL 320 100 ML VIAL IVP ONE ×2 (18:09→19:08)
--- NOTE | 2020-09-19 18:09 | ED Physician Documentation ---
History of Present Illness - Stated complaint Stated Complaint: SOA - Chief complaint Chief Complaint: Resp - History obtained from History obtained from: Patient - Additonal information Additional information: 85-year-old woman was transported to [place] last week for choledocholithiasis and subsequently had laparoscopic cholecystectomy and ERCP. States that ever since the surgery she has been short of breath and more so today. She is been coughing up scant thick mucus. Denies known fevers. No chest pain, no pedal edema. She has a history of CHF remotely, she is not sure why. No history of LA. No pedal edema or calf pain. 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 : None HEENT: None Psych: Depression, Anxiety Musculoskeletal: Osteoarthritis Derm: None - Past Surgical History Past Surgical History: Yes General: Appendectomy, Colonoscopy /NIGHT SHIFT MANAGER: Hysterectomy, Other - Present Medications Home Medications: Ambulatory Orders Medication Instructions Recorded Confirmed Levothyroxine [Synthroid] 25 mcg PO QDAC 08/11/14 09/12/20 Calcium Carbonate/Vitamin D3 1 each PO BID 05/28/17 09/12/20 [Caltrate 600 Plus D3 Tablet] Furosemide [Lasix] 20 mg PO QDBREAKFAST 05/28/17 09/12/20 Glucosamine HCl/Chondroitin Medeiros 1 each PO BID 05/28/17 09/12/20 [Endur-Flex Sr Tablet] Losartan Potassium [Cozaar] 100 mg PO DAILY 05/28/17 09/12/20 Magnesium 250 mg PO QPM 05/28/17 09/12/20 Potassium Chloride [Klor-Con 10] 10 meq PO QDBREAKFAST 05/28/17 09/12/20 traZODone [Desyrel] 50 mg PO DAILY 09/12/20 09/12/20 - Allergies Allergies/Adverse Reactions: Allergies Allergy/AdvReac Type Severity Reaction Status Date / Time codeine [Codeine] Allergy Hallucinati Verified 09/19/20 18:02 ons Opioids-Meperidine and Allergy Unknown Verified 09/19/20 18:02 Related [Opioids-Meperidine & Related] Opioids-Methadone and Related Allergy Unknown Verified 09/19/20 18:02 [Opioids-Methadone & Related] - Social History Does the pt smoke?: No Smoking Status: Never smoker Does the pt drink ETOH?: Yes Does the pt have substance abuse?: No - Immunizations Immunizations are current?: No Immunizations: TDAP >10years/unknown - POLST Patient has POLST: No POLST Status: Full Code PD ED PE NORMAL - Vitals Vital signs reviewed: Yes - General General: Alert and oriented X 3 (She appears breathless and anxious, tearful as well.) - HEENT HEENT: PERRL, EOMI - Neck Neck: Supple, no meningeal sign, No bony TTP - Cardiac Cardiac: RRR, No murmur - Respiratory Respiratory: Other (Tachypneic but lungs are relatively clear.) - Abdomen Abdomen: Soft, Non tender, Other (Nominal incisions are bruised but clean dry and intact without evidence of infection, no tenderness.) - Back Back: No CVA TTP, No spinal TTP - Extremities Extremities: No edema, No calf tenderness / cord - Neuro Neuro: Alert and oriented X 3, Normal speech Results - Vitals Vitals: Vital Signs - 24 hr 09/19/20 09/19/20 09/19/20 18:02 18:05 18:07 Temperature 37 C 37 C Heart Rate 70 62 70 Respiratory 36 H 20 36 H Rate Blood Pressure 127/101 H 127/101 H O2 Saturation 100 100 09/19/20 20:04 Temperature Heart Rate 62 Respiratory 20 Rate Blood Pressure 159/65 H O2 Saturation 98 Oxygen O2 Source Room air - EKG (time done) 1815 Rate: Rate (enter#) (65) Rhythm: NSR Lengby: Normal Intervals: Normal SC QRS: Normal Ischemia: Normal ST segments, Other (Some artifact making it difficult to see fine detail but no gross ischemia.) - Labs Labs: Laboratory Tests 09/19/20 09/19/20 09/19/20 18:20 18:20 18:20 WBC 7.8 RBC 4.08 L Hgb 12.7 Hct 37.0 MCV 90.7 MCH 31.1 H MCHC 34.3 RDW 12.2 Plt Count 270 MPV 8.9 Neut # (Auto) 3.9 Lymph # (Auto) 2.3 Kerr # (Auto) 1.4 H Eos # (Auto) 0.1 Baso # (Auto) 0.1 Absolute Nucleated RBC 0.00 Nucleated RBC % 0.0 VBG pH VBG pCO2 VBG pO2 VBG HCO3 VBG Total CO2 VBG O2 Saturation VBG Base Excess Sodium 130 L Potassium 3.1 L Chloride 90 L Carbon Dioxide 25 Anion Gap 15.0 H BUN 12 Creatinine 0.9 Estimated GFR (MDRD) 60 L Glucose 123 H Calcium 8.8 Troponin I High Sens 17.1 H* B-Natriuretic Peptide 09/19/20 09/19/20 09/19/20 18:20 18:20 20:15 WBC RBC Hgb Hct MCV MCH MCHC RDW Plt Count MPV Neut # (Auto) Lymph # (Auto) Kerr # (Auto) Eos # (Auto) Baso # (Auto) Absolute Nucleated RBC Nucleated RBC % VBG pH 7.559 H VBG pCO2 29.4 L VBG pO2 21.1 L VBG HCO3 25.7 VBG Total CO2 26.6 VBG O2 Saturation 45.4 L VBG Base Excess 4.2 H Sodium Potassium Chloride Carbon Dioxide Anion Gap BUN Creatinine Estimated GFR (MDRD) Glucose Calcium Troponin I High Sens 13.4 B-Natriuretic Peptide 178 H PD MEDICAL DECISION MAKING - ED course ED course: 85-year-old woman presents with shortness of breath in the setting of recent surgery. She is quite breathless and appears anxious and tearful but at the same time her lungs are clear and no clinical evidence of CHF. She did get some relief with the DuoNeb despite the lack of wheezing. On further evaluation she notes that she stopped her lorazepam a few days ago because it was making her fuzzy. Was discussed that she may be having dyspnea due to panic due to withdrawal. She had a minimal elevation of her troponin which was resolved on recheck. She was symptom-free after Ativan here. She was very appreciative and plans to go home and have some marijuana truffles. Departure - Departure Disposition: 01 Home, Self Care Clinical Impression: Dyspnea Condition: Good Record reviewed to determine appropriate education?: Yes Instructions: ED Dyspnea Shortness of Breath Comments: You were seen today for acute shortness of breath which in hindsight is likely due to lorazepam withdrawal after having abruptly stopped it 2 days ago. We did find a 6 mm right upper lobe nodule, we recommend he have a repeat CAT scan in 6 to 12 months to recheck. Talk with your doctor about this. Do not stop lorazepam abruptly in the future. Return for new or worsening symptoms. Do not drive tonight or while taking lorazepam. CT scan read: 1. No acute pulmonary emboli. No acute cardiopulmonary abnormalities. No right- sided heart strain. 2. 6 mm inferior right upper lobe pulmonary nodule. Recommend follow-up chest CT in 6-12 months to document stability. 3. Expected postsurgical changes from recent laparoscopic cholecystectomy.
[2020-09-19 18:29] LABS: BASOPHILS # (AUTO) 0.1 10^3/uL (0.0-0.1); BASOPHILS % (AUTO) 0.6 %; EOSINOPHILS # (AUTO) 0.1 10^3/uL (0.0-0.7); EOSINOPHILS % (AUTO) 1.2 %; HGB - HEMOGLOBIN 12.7 g/dL (12.0-16.0); LYMPHOCYTES # (AUTO) 2.3 10^3/uL (1.5-3.5); LYMPHOCYTES % (AUTO) 29.2 %; MEAN CORPUSCULAR HEMOGLOBIN 31.1 pg (27.0-31.0); MEAN CORPUSCULAR HGB CONC 34.3 g/dL (32.0-36.0); MEAN CORPUSCULAR VOLUME 90.7 fL (81.0-99.0); MEAN PLATELET VOLUME 8.9 fL (7.9-10.8); MONOCYTES # (AUTO) 1.4 10^3/uL (0.0-1.0); MONOCYTES % (AUTO) 17.9 %; NEUTROPHILS # (AUTO) 3.9 10^3/uL (1.5-6.6); NEUTROPHILS % (AUTO) 50.1 %; PLT - PLATELET COUNT 270 10^3/uL (130-450); RED BLOOD COUNT 4.08 10^6/uL (4.20-5.40); RED CELL DISTRIBUTION WIDTH 12.2 % (12.0-15.0); WHITE BLOOD COUNT 7.8 x10^3/uL (4.8-10.8)
[2020-09-19 18:31] LABS: VBG BASE EXCESS 4.2 mmol/L (-2 - +2); VBG HCO3 25.7 mmol/L (23-28); VBG OXYGEN SATURATION 45.4 % (60-80); VBG PCO2 29.4 mmHg (41-51); VBG PH 7.559 (7.31-7.41); VBG PO2 21.1 mmHg (25-47); VBG TOTAL CO2 26.6 mmol/L (24-29)
--- OUTSIDE RECORDS SUMMARY | 2020-09-19 18:33 | EXTERNAL MEDICAL SUMMARY RPT | Continuity of Care Document ---
:1935 Demographics Phone Unavailable Preferred Language Samoan Marital Status Unknown Temple Affiliation Unknown Race Unknown Ethnic Group Unknown Author Organization [facility] Address [address] [place] [address] Phone Care Team Providers Name Role Phone Alla Hilton Unavailable Unavailable Problems date description facility [id number] Choledocolithiasis [facility] [employer] [id number] Headache, unspecified [facility]
[2020-09-19 18:40] LABS: CALCIUM 8.8 mg/dL (8.5-10.3); CREATININE 0.9 mg/dL (0.4-1.0); POTASSIUM 3.1 mmol/L (3.5-5.0)
[2020-09-19] MEDS ORDERED: POTASSIUM CHLORIDE 20 MEQ TABLET PO STA (18:46)
[2020-09-19] MEDS ORDERED: LORazepam 2 MG/ML VIAL IVP STA (19:37)
--- NOTE | 2020-09-19 19:43 | CT Report ---
PROCEDURE: ANGIO CHEST W/WO INDICATIONS: Dyspnea, postop CONTRAST: IV CONTRAST: Optiray 320 ml: 80 PO CONTRAST: *NO PO CONTRAST TECHNIQUE: After the administration of intravenous contrast, 2 mm thick sections acquired from the pulmonary api naif to the posterior costophrenic angles. 3-dimensional maximum intensity projection (MIP) coronal a nd sagittal reformats were then acquired through the thorax. For radiation dose reduction, the follow ing was used: automated exposure control, adjustment of mA and/or kV according to patient size. COMPARISON: CT abdomen and pelvis dated 09/12/2020 FINDINGS: Image quality: Excellent. Pulmonary arteries: Pulmonary arteries are normal in size, and demonstrate no intraluminal filling d efects to suggest central pulmonary embolism. Lungs and pleura: 6 mm posterior right upper lobe pulmonary nodule seen on image 74, series 6. Calci fied pulmonary granuloma in the medial aspect of the right upper lobe. Lungs are clear. No pleural e ffusions or pneumothorax. Central and peripheral airways are patent. Mediastinum: Heart size is normal, without pericardial effusion. No mediastinal or hilar adenopathy . Thoracic aorta is normal in caliber and enhancement. Esophagus is normal in caliber, without hiat al hernia. Bones and chest wall: No suspicious bony lesions. Ribs and thoracic spine appear intact throughout. No axillary or supraclavicular adenopathy. The thyroid is normal in size and there are no incident al findings. Abdomen: Expected postoperative changes from recent laparoscopic cholecystectomy. Visualized upper ab dominal solid organs appear normal in the early arterial phase of enhancement. IMPRESSION: 1. No acute pulmonary emboli. No acute cardiopulmonary abnormalities. No right-sided heart strain. 2. 6 mm inferior right upper lobe pulmonary nodule. Recommend follow-up chest CT in 6-12 months to do cument stability. 3. Expected postsurgical changes from recent laparoscopic cholecystectomy. CLINICAL RECOMMENDATION STATEMENTS: In patients <35 years with an ITN detected on CT, MRI, or extrathyroidal ultrasound, the Committee re commends further evaluation with dedicated thyroid ultrasound if the nodule is ?1 cm and has no suspi cious imaging features, and if the patient has normal life expectancy. In patients ?35 years with an ITN detected on CT, MRI, or extrathyroidal ultrasound, the Committee re commends further evaluation with dedicated thyroid ultrasound if the nodule is ?1.5 cm and has no geoffrey picious imaging features, and if the patient has normal life expectancy. (ACR, 2014) Reviewed by: Zechariah Perdue MD on 09/19/2020 7:42 PM PDT Approved by: Zechariah Perdue MD on 09/19/2020 7:42 PM PDT Station ID: [id number]
[2020-09-19 21:05] VITALS: BP 154/62
== END 2020-09-19 21:04 | disposition home or self-care (01) ==
LOC: ED 17:52
DX: R06.02 Shortness of breath (principal); R91.1 Solitary pulmonary nodule; T42.4X6A Underdosing of benzodiazepines, initial encounter; Z91.128 Patient's intentional underdosing of medication regimen for other reason; E11.9 Type 2 diabetes mellitus without complications; Z86.79 Personal history of other diseases of the circulatory system; I10 Essential (primary) hypertension
CPT/HCPCS: 36415; 71275; 80048; 82803; 83880; 84484; 85025; 93005; 94640; 96374; 99284; A9270; J2060; Q9967

== ENCOUNTER 2020-11-27 10:30 | Outpatient (CLI) | payer MEDICARE ==
[2020-11-27 10:43] LABS: BASOPHILS # (AUTO) 0.1 10^3/uL (0.0-0.1); BASOPHILS % (AUTO) 1.4 %; EOSINOPHILS # (AUTO) 0.1 10^3/uL (0.0-0.7); EOSINOPHILS % (AUTO) 1.2 %; HCT - HEMATOCRIT 38.8 % (37.0-47.0); HGB - HEMOGLOBIN 13.1 g/dL (12.0-16.0); LYMPHOCYTES # (AUTO) 1.8 10^3/uL (1.5-3.5); LYMPHOCYTES % (AUTO) 35.4 %; MEAN CORPUSCULAR HEMOGLOBIN 32.2 pg (27.0-31.0); MEAN CORPUSCULAR HGB CONC 33.8 g/dL (32.0-36.0); MEAN CORPUSCULAR VOLUME 95.3 fL (81.0-99.0); MEAN PLATELET VOLUME 9.7 fL (7.9-10.8); MONOCYTES # (AUTO) 0.6 10^3/uL (0.0-1.0); MONOCYTES % (AUTO) 11.6 %; NEUTROPHILS # (AUTO) 2.6 10^3/uL (1.5-6.6); NEUTROPHILS % (AUTO) 50.2 %; PLT - PLATELET COUNT 181 10^3/uL (130-450); RED BLOOD COUNT 4.07 10^6/uL (4.20-5.40); RED CELL DISTRIBUTION WIDTH 12.9 % (12.0-15.0); WHITE BLOOD COUNT 5.1 x10^3/uL (4.8-10.8)
[2020-11-27 11:13] LABS: ALBUMIN 3.9 g/dL (3.2-5.5); ALBUMIN/GLOBULIN RATIO 1.3 (1.0-2.2); ALKALINE PHOSPHATASE 51 IU/L (42-121); ALT ALANINE AMINOTRANSFERASE 15 IU/L (10-60); AST ASPARTATE AMINOTRANSFERASE 19 IU/L (10-42); BILIRUBIN,TOTAL 0.8 mg/dL (0.2-1.0); BUN - BLOOD UREA NITROGEN 16 mg/dL (6-20); CALCIUM 8.9 mg/dL (8.5-10.3); CARBON DIOXIDE - CO2 29 mmol/L (21-32); CHLORIDE 102 mmol/L (101-111); CHOL/HDL RATIO 3.5 (<4.4); CHOLESTEROL 157 mg/dL; GFR - MDRD 53 (>89); GLUCOSE 109 mg/dL (70-100); HDL CHOLESTEROL 45 mg/dL; LDL CHOLESTEROL,CALCULATED 97 mg/dL; LDL/HDL RATIO 2.2 (<4.4); POTASSIUM 3.8 mmol/L (3.5-5.0); SODIUM 140 mmol/L (135-145); TOTAL PROTEIN 6.8 g/dL (6.7-8.2); TRIGLYCERIDES 75 mg/dL; VLDL CHOLESTEROL 15 mg/dL
[2020-11-27 11:54] LABS: ESTIMATED AVERAGE GLUCOSE 103 mg/dL (70-100); HEMOGLOBIN A1c% 5.2 % (4.27-6.07)
== END 2020-11-27 10:31 | disposition home or self-care (01) ==
LOC: LAB 10:30
PROVIDERS: ATTEND Internal Medicine
DX: C50.919 Malignant neoplasm of unspecified site of unspecified female breast (principal); E03.9 Hypothyroidism, unspecified; E11.9 Type 2 diabetes mellitus without complications; Z79.899 Other long term (current) drug therapy; D64.9 Anemia, unspecified; I11.0 Hypertensive heart disease with heart failure; H91.90 Unspecified hearing loss, unspecified ear; I50.9 Heart failure, unspecified; J45.909 Unspecified asthma, uncomplicated; Z13.6 Encounter for screening for cardiovascular disorders; R68.89 Other general symptoms and signs
CPT/HCPCS: 36415; 80053; 80061; 83036; 83721; 84443; 85025

== ENCOUNTER 2020-12-21 09:54 | Emergency (ER) | payer MEDICARE ==
--- NOTE | 2020-12-21 10:33 | ED Physician Documentation ---
PD HPI LOWER EXT INJURY - Stated complaint Stated Complaint: LT LEG/FOOT NUMBNESS - Chief complaint Chief Complaint: Ext Problem - History obtained from History obtained from: Patient - History of Present Illness PD HPI LOW EXT INJURY LOCATION: Left, Lower leg, Foot Type of injury: No: Fall, Twist, Blunt / blow Timing - onset: How many days ago (1-2 weeks ago with feeling of numbness anterolateral left lower leg and lateral top of foot, with 2-3 days now of left foot drop (weakness for dorsiflexion).) Timing - duration: Days Timing - details: Gradual onset, Still present Associated symptoms: Weakness (dorsiflexion of left foot weakness), Numbness (left lower leg). 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 : None HEENT: None Psych: Depression, Anxiety Musculoskeletal: Osteoarthritis Derm: None - Past Surgical History Past Surgical History: Yes General: Appendectomy, Colonoscopy /BICYCLE COURIER: Hysterectomy, Other - Present Medications Home Medications: Ambulatory Orders Medication Instructions Recorded Confirmed Levothyroxine [Synthroid] 25 mcg PO QDAC 08/11/14 12/21/20 Calcium Carbonate/Vitamin D3 1 each PO BID 05/28/17 09/12/20 [Caltrate 600 Plus D3 Tablet] Furosemide [Lasix] 20 mg PO QDBREAKFAST 05/28/17 12/21/20 Glucosamine HCl/Chondroitin Medeiros 1 each PO BID 05/28/17 12/21/20 [Endur-Flex Sr Tablet] Losartan Potassium [Cozaar] 100 mg PO DAILY 05/28/17 09/12/20 Magnesium 250 mg PO QPM 05/28/17 09/12/20 Potassium Chloride [Klor-Con 10] 10 meq PO QDBREAKFAST 05/28/17 12/21/20 traZODone [Desyrel] 50 mg PO DAILY 09/12/20 12/21/20 Amlodipine Besylate [Norvasc] 1 tab PO DAILY 12/21/20 12/21/20 Aspirin [B[place]vue Aspirin] 1 tab PO DAILY 12/21/20 12/21/20 Citalopram Hydrobromide [Celexa] 1 tab PO DAILY 12/21/20 12/21/20 Furosemide [Lasix] 1 tab PO DAILY 12/21/20 12/21/20 LORazepam [Ativan] 1 tab PO DAILY 12/21/20 12/21/20 Losartan Potassium [Cozaar] 1 tab PO DAILY 12/21/20 12/21/20 dexAMETHasone [Decadron] 4 mg PO DAILY #5 tablet 12/21/20 - Allergies Allergies/Adverse Reactions: Allergies Allergy/AdvReac Type Severity Reaction Status Date / Time codeine [Codeine] Allergy Hallucinati Verified 12/21/20 10:44 ons Opioids-Meperidine and Allergy Unknown Verified 12/21/20 10:44 Related [Opioids-Meperidine & Related] Opioids-Methadone and Related Allergy Unknown Verified 12/21/20 10:44 [Opioids-Methadone & Related] - Social History Does the pt smoke?: No Smoking Status: Never smoker Does the pt drink ETOH?: Yes Does the pt have substance abuse?: No - Immunizations Immunizations are current?: No Immunizations: TDAP >10years/unknown - POLST Patient has POLST: No POLST Status: Full Code PD ED PE NORMAL - Vitals Vital signs reviewed: Yes - General General: Alert and oriented X 3, No acute distress, Well developed/nourished - Abdomen Abdomen: Soft, Non tender - Back Back: No CVA TTP, No spinal TTP, Other (no rash, sores, redness in back. No vertebral tenderness to percussion. ) - Derm Derm: Normal color, Warm and dry, No rash - Extremities Extremities: No edema, No calf tenderness / cord - Neuro Neuro: Other (left lower leg with decreased significantly sensation anterolateral lower leg to dorsolateral foot. Has inability to dorsiflex foot at ankle (foot drop). plantar flexion is good. ) Results - Vitals Vitals: Vital Signs - 24 hr 12/21/20 12/21/20 12/21/20 10:07 10:54 11:00 Temperature 36.4 C L Heart Rate 61 47 L 48 L Respiratory 15 20 14 Rate Blood Pressure 117/73 123/57 L 134/57 H O2 Saturation 97 97 97 Oxygen O2 Source Room air - Rads (name of study) lumbar CT Radiology: Prelim report reviewed (severe L4-L5 neuralforaminal nerve root openings with compression of outgoing nerve bilaterally. ), See rad report PD MEDICAL DECISION MAKING - ED course Complexity details: reviewed results (CT showing nerve root foraminal opening severe narrowing. Pt has back orthopedist in [place]. She will call him and make appt for prompt follow up. ), considered differential (pattern of symptoms c/w L4 nerve compression with numbness anterolateral lower leg to top of foot, and foot drop left. ), d/w patient Departure - Departure Disposition: 01 Home, Self Care Clinical Impression: Lumbar radiculopathy, acute, Foot drop, left Condition: Stable Record reviewed to determine appropriate education?: Yes Instructions: Lumbar Radiculopathy Follow-Up: Alla Lozada MD [Primary Care Provider] - Prescriptions: dexAMETHasone [Decadron] 4 mg PO DAILY #5 tablet Comments: Your CT scan is showing some tightness at the nerve outlet at the L4-5 level which would correlate with the L4 nerve affect you have in the left leg (the numbness and foot drop). Call your spine orthopedist in [place] for a follow- up appointment and let them know about these symptoms. I presume they will see you in follow-up in the near future. Use the Decadron steroid daily for 5 days to see if there is an inflammatory component to it. Add Tylenol if needed for pains. Discharge Date/Time: 12/21/20 12:01
--- NOTE | 2020-12-21 11:31 | CT Report ---
PROCEDURE: LUMBAR SPINE WO INDICATIONS: left lower leg numb L4 area with foot drop TECHNIQUE: Noncontrast 3 mm thick sections acquired from the T12 level to the sacrum. Sagittal and coronal refo rmats were constructed. For radiation dose reduction, the following was used: automated exposure co ntrol, adjustment of mA and/or kV according to patient size. COMPARISON: None. FINDINGS: Image quality: Excellent. Bones: There is mild L4-L5 anterolisthesis secondary to facet hypertrophy. No acute vertebral body c ompression fractures. No suspicious lytic or blastic bony lesions. Central spinal caliber is of nor mal overall caliber. No pars defects. T12-L1: Slight loss of disc height. Minimal, diffuse disc bulge. No central stenosis. No neural fora keo narrowing. No neural compression. L1-L2: Disc height is normal. Mild, diffuse disc bulge. Mild bilateral facet hypertrophy. Mild alejandra rowing of the central canal. Mild bilateral neural foraminal narrowing. No neural compression. L2-L3: Disc height is normal. Mild, diffuse disc bulge. Mild bilateral facet hypertrophy. Mild alejandra rowing of the central canal. Mild bilateral neural foraminal narrowing. No neural compression. L3-L4: Slight loss of disc height. Vacuum disc phenomenon. Mild, diffuse disc bulge. Moderate bilat eral facet hypertrophy. Moderate narrowing of the central canal. Mild bilateral neural foraminal narr owing. No neural compression. L4-L5: Loss of disc height. Vacuum disc phenomenon. Posterior endplate osteophytosis. Moderate to s evere bilateral facet hypertrophy. Moderate to severe narrowing of the central canal. Severe bilatera l neural foraminal narrowing with marked compression of the exiting bilateral L4 nerve roots. L5-S1: Disc height is normal. Mild, diffuse disc bulge. Moderate to severe bilateral facet hypertro phy. No central stenosis. Severe bilateral neural foraminal narrowing with mild compression of the ex iting bilateral L5 nerve roots. Soft tissues: No retroperitoneal masses or hematomas. Visualized aorta is normal in caliber. Dense atelectatic calcifications noted in the visualized abdominal and pelvic vasculature. Postsurgical anisha nges noted in the distal sigmoid colon. IMPRESSION: 1. Grade 1 L4-L5 degenerative spondylolisthesis. 2. Multilevel degenerative disc disease. 3. Multilevel facet arthropathy. 4. Moderate to severe L4-L5 central canal narrowing. 5. Severe bilateral L4-L5 and L5-S1 neural foraminal narrowing with compression of the exiting bilate ral L4 and L5 nerve roots. 6. No vertebral body compression fracture. Reviewed by: Deann Daniel MD, PhD on 12/21/2020 11:30 AM PDT Approved by: Deann Daniel MD, PhD on 12/21/2020 11:30 AM PDT Station ID: [id number]
[2020-12-21] MEDS ORDERED: CHERRY SYRUP 10 ML UDC PO ONE (11:48)
[2020-12-21] MEDS ORDERED: DEXAMETHASONE 10 MG/ML VIAL PO STA (11:48)
[2020-12-21 12:01] VITALS: BP 134/57
== END 2020-12-21 12:01 | disposition home or self-care (01) ==
LOC: ED 09:54
DX: M51.16 Intervertebral disc disorders with radiculopathy, lumbar region (principal); M48.061 Spinal stenosis, lumbar region without neurogenic claudication; M43.16 Spondylolisthesis, lumbar region; M21.372 Foot drop, left foot; I11.0 Hypertensive heart disease with heart failure; I50.9 Heart failure, unspecified; E11.9 Type 2 diabetes mellitus without complications; Z79.82 Long term (current) use of aspirin
CPT/HCPCS: 72131; 99284; A9270

== ENCOUNTER 2021-04-13 13:15 | Outpatient (CLI) | payer MEDICARE ==
--- NOTE | 2021-04-14 14:22 | Mammography Report ---
BILATERAL DIGITAL SCREENING MAMMOGRAM 3D/2D: 04/13/2021 CLINICAL: Routine screening. Personal history of left breast cancer. Comparison is made to exams dated: 09/21/2017 mammogram, 09/19/2016 mammogram, and 09/18/2015 mammogram - [facility]. There are scattered fibroglandular elements in both breasts. There are benign vascular calcifications in both breasts. There also are benign post operative findi ngs in the left breast. No significant masses, calcifications, or other findings are seen in either breast. There has been no significant interval change. IMPRESSION: BENIGN There is no mammographic evidence of malignancy. A 1 year screening mammogram is recommended. This exam was interpreted at Station ID: [id number]. NOTE: For mammograms, a report in lay terms will be sent to the patient. Approximately 15% of breast malignancies will not be visualized mammographically. In the management of a palpable breast mass, a negative mammogram must not discourage biopsy of a clinically suspicious lesion. Electronically Signed By: Lyndsay damon/dana:04/13/2021 15:01:46 ACR BI-RADS Category 2: Benign Finding(s) 3342F PARENCHYMAL PATTERN: (A) - The breast(s) demonstrate(s) scattered fibroglandular densities. BI-RADS CATEGORY: (2) - 2 RECOMMENDATION: (ANNUAL) - Recommend routine annual screening mammography. [id number] 1 year screening LATERALITY: (B)
== END 2021-04-13 13:16 | disposition home or self-care (01) ==
LOC: DI 13:15
PROVIDERS: ATTEND Internal Medicine
DX: Z12.31 Encounter for screening mammogram for malignant neoplasm of breast (principal); Z85.3 Personal history of malignant neoplasm of breast

== ENCOUNTER 2021-11-22 13:25 | Outpatient (CLI) | payer MEDICARE | END 2021-11-22 13:26 | disposition home or self-care (01) | LOC: LAB 13:25 | PROVIDERS: ATTEND Internal Medicine | DX: Z11.1 Encounter for screening for respiratory tuberculosis (principal) | CPT/HCPCS: 81599; 86480 ==

== ENCOUNTER 2022-01-14 08:20 | Outpatient (CLI) | payer MEDICARE ==
--- NOTE | 2022-01-14 11:03 | DEXA Report ---
PROCEDURE: Dexa Spine and/or Hip INDICATIONS: POST MENOPAUSAL TECHNIQUE: Dual energy x-ray absorptiometry (DXA) was performed on a [employer] System. Regions measur ed are the AP Spine, femoral neck, and if needed forearm. COMPARISON: None. FINDINGS: Lumbar Spine (L1-L3): Bone Mineral Density 1.002 g/cm/cm,T score -1.4, osteopenia Left Hip: Bone Mineral Density 0.689 g/cm/cm,T score -2.5, osteoporosis Left Femoral Neck: Bone Mineral Density 0.702 g/cm/cm, T score -2.4, osteopenia (T score greater or equal to -1.0: NORMAL) (T score from -1.1 to -2.4: OSTEOPENIA) (T score less than or equal to -2.5 to: OSTEOPOROSIS) Impression: 1. Osteoporosis puts the patient at a high-risk of fracture. Patients with diagnosis of osteoporosis or osteopenia should have regular bone mineral density assess ment. For those eligible for Medicare, routine testing is allowed once every 2 years. Testing frequ ency can be increased for patients who have rapidly progressing disease or for those who are receivin g medical therapy to restore bone mass. Reviewed by: Lyndsay Couch MD on 01/14/2022 11:02 AM PDT Approved by: Lyndsay Couch MD on 01/14/2022 11:02 AM PDT Station ID: [id number]
== END 2022-01-14 08:21 | disposition home or self-care (01) ==
LOC: DI 08:20
PROVIDERS: ATTEND Internal Medicine
DX: Z78.0 Asymptomatic menopausal state (principal); M81.0 Age-related osteoporosis without current pathological fracture

== ENCOUNTER 2022-01-25 09:34 | Outpatient (CLI) | payer MEDICARE ==
[~2022-01-25 09:34] MED LIST: LIDOCAINE 1%-EPI 1:100000 20 ML MDV ONE; lidocaine 1% 20 ML MDV ONE
[2022-01-25] MEDS ORDERED: lidocaine 1% 20 ML MDV SUBQ ONE (11:15)
[2022-01-25] MEDS ORDERED: LIDOCAINE 1%-EPI 1:100000 20 ML MDV SUBQ ONE (11:17)
--- NOTE | 2022-01-28 11:30 | Mammography Report ---
UNILATERAL LEFT DIGITAL DIAGNOSTIC MAMMOGRAM 3D/2D: 01/25/2022 CLINICAL: Post left breast ultrasound biopsy clip placement imaging. Comparison is made to exams dated: 01/14/2022 mammogram, 04/13/2021 mammogram, 09/21/2017 mammogram, mammogram, and 09/18/2015 mammogram - [facility]. There are scattered areas of fibroglandular density in the left breast (category b / 25%-50% glandula r tissue). There is a marker clip in the appropriate position in the left axillary tail 7 cm from the nipple. T his marker clip placement is at the biopsy site. IMPRESSION: POST PROCEDURE MAMMOGRAM FOR MARKER PLACEMENT There was a successful marker clip placement in the left axillary tail. This exam was interpreted at Station ID: [id number]. NOTE: For mammograms, a report in lay terms will be sent to the patient. Approximately 15% of breast malignancies will not be visualized mammographically. In the management of a palpable breast mass, a negative mammogram must not discourage biopsy of a clinically suspicious lesion. Electronically Signed By: Augusto Kaur M.D., jr/dana:01/26/2022 09:21:30 ACR BI-RADS Category Post-procedure mammogram for marker placement PARENCHYMAL PATTERN: (A) - The breast(s) demonstrate(s) scattered fibroglandular densities. BI-RADS CATEGORY: () - Unspecified - other recall n/a LATERALITY: (B)
--- NOTE | 2022-01-31 11:12 | Ultrasound Report ---
ULTRASOUND GUIDED BIOPSY LEFT BREAST USING VACUUM DEVICE WITH MARKING DEVICE INSERTED AND POST DIGITA L MAMMOGRAPHIC IMAGIN01/25/2022 CLINICAL: Left breast mass. PATIENT CONSENT: Risks (minor bleeding, infection, vasovagal reaction and repeat procedure), benefits and alternatives were explained to the patient and written informed consent was obtained. Correlation is made to exams dated: 01/14/2022 ultrasound, 01/14/2022 mammogram, 04/13/2021 mammogram, 09/21/2017 mammogram, and 09/19/2016 mammogram - [facility]. An ultrasound guided biopsy using real-time ultrasound was performed for the 2.4 cm x 2.5 cm x 1.9 cm mass located in the left axillary tail 7 cm from the nipple. This was described on the previous t rasound report. The skin was prepped in the usual manner. Local anesthetic was administered to the access site. A skin sabrina was made in the breast. The abnormality was approached from the lateral as pect. A 12 gauge biopsy needle was placed adjacent to the abnormality under ultrasound guidance. On ce the needle was documented to be in the correct location, three specimens were obtained using the [employer] en[employer]Rx Encor system. A clip was inserted into the biopsy cavity. A skin closure strip and a sterile dressing were applied to the access site. Post procedure digital mammographic imaging demonstrates t he location device at the targeted area and partial removal of the abnormality. The specimens were s ent to the laboratory for pathological analysis. IMPRESSION: ULTRASOUND GUIDED BIOPSY BENIGN Ultrasound guided biopsy of the 2.4 cm x 2.5 cm x 1.9 cm mass in the left axillary tail 7 cm from the nipple was successful with no apparent post procedure complications. Pathology indicates benign "Fibrous breast tissue with elastotic change. Scant duct epithelium with a trophic features. Negative for in situ or invasive carcinoma." Pathology results are concordant with imaging findings. Return to annual mammogram screening schedule is recommended. This exam was interpreted at Station ID: [id number]. Augusto Hernandez M.D., jr,ar/:01/31/2022 10:25:33 BI-RADS CATEGORY: () - Mammogram [id number] return to screening LATERALITY: (B)
== END 2022-01-25 09:35 | disposition home or self-care (01) ==
LOC: DI 09:34
PROVIDERS: ATTEND Internal Medicine
DX: R92.8 Other abnormal and inconclusive findings on diagnostic imaging of breast (principal)
CPT/HCPCS: 19083

== ENCOUNTER 2022-02-09 10:36 | Outpatient (CLI) | payer MEDICARE ==
--- NOTE | 2022-02-09 11:10 | CT Report ---
PROCEDURE: Abdomen/Pelvis WO INDICATIONS: FLANK PAIN TECHNIQUE: Noncontrast 5 mm thick sections acquired from the diaphragms to the symphysis. 5 mm coronal and sagi ttal reformats were then performed. For radiation dose reduction, the following was used: automated exposure control, adjustment of mA and/or kV according to patient size. COMPARISON: None. FINDINGS: Image quality: Excellent Lower chest: Scattered scarring. Coronary and annular heart calcifications. Solid organs: Subcentimeter lesions are too small to characterize. Liver is otherwise unremarkable no ncontrast imaging. Gallbladder is absent. No biliary ductal dilation. No pancreatic ductal dilation. Pancreatic parenchyma is mildly atrophic. No splenomegaly. No adrenal nodule. Trace bilateral renal pelviectasis without hydronephrosis. No obstructing calculus identified. No graciela dder stone is visible. Vessels and lymph nodes: Atherosclerotic calcifications. No adenopathy by size criteria. No abdominal aortic aneurysm. Bowel and peritoneum: Colonic diverticula. Colorectal suture lines. No bowel obstruction or pathologi c ascites. Body wall: Unremarkable Pelvis: Hysterectomy. Bones: Lumbosacral fusion hardware. Spondylosis. IMPRESSION: No hydronephrosis or obstructing calculi. Mild bilateral pelviectasis. No bladder stones identified. No acute abdominopelvic pathology on noncontrast CT. Other incidental findings above. Reviewed by: Hernesto Peterson MD on 02/09/2022 11:09 AM PDT Approved by: Hernesto Peterson MD on 02/09/2022 11:09 AM PDT Station ID: [id number]
== END 2022-02-09 10:37 | disposition home or self-care (01) ==
LOC: DI 10:36
PROVIDERS: ATTEND Internal Medicine
DX: R10.9 Unspecified abdominal pain (principal); N28.89 Other specified disorders of kidney and ureter

== ENCOUNTER 2022-07-18 15:14 | Emergency (ER) | payer MEDICARE ==
[2022-07-18 15:51] LABS: BASOPHILS # (AUTO) 0.1 10^3/uL (0.0-0.1); EOSINOPHILS # (AUTO) 0.1 10^3/uL (0.0-0.7); EOSINOPHILS % (AUTO) 1.6 %; HCT - HEMATOCRIT 36.9 % (37.0-47.0); HGB - HEMOGLOBIN 12.1 g/dL (12.0-16.0); LYMPHOCYTES % (AUTO) 29.1 %; MEAN CORPUSCULAR HGB CONC 32.8 g/dL (32.0-36.0); MEAN CORPUSCULAR VOLUME 94.6 fL (81.0-99.0); MEAN PLATELET VOLUME 9.6 fL (7.9-10.8); MONOCYTES # (AUTO) 0.8 10^3/uL (0.0-1.0); MONOCYTES % (AUTO) 11.3 %; NEUTROPHILS % (AUTO) 56.7 %; PLT - PLATELET COUNT 189 10^3/uL (130-450); RED CELL DISTRIBUTION WIDTH 12.8 % (12.0-15.0)
[2022-07-18 16:05] LABS: ALBUMIN 3.6 g/dL (3.2-5.5); ALBUMIN/GLOBULIN RATIO 1.3 (1.0-2.2); BILIRUBIN,TOTAL 0.4 mg/dL (0.2-1.0); CALCIUM 8.4 mg/dL (8.5-10.3); CREATININE 0.8 mg/dL (0.4-1.0); POTASSIUM 3.5 mmol/L (3.5-5.0); TOTAL PROTEIN 6.3 g/dL (6.7-8.2)
--- NOTE | 2022-07-18 16:08 | XRAY Report ---
PROCEDURE: Chest 1 View X-Ray INDICATIONS: Chest pain TECHNIQUE: One view of the chest was acquired. COMPARISON: None. FINDINGS: Surgical changes and devices: Left breast surgical clips. Lungs and pleura: No pleural effusions or pneumothorax. Lungs are clear. Mediastinum: Mediastinal contours appear normal. Heart size is normal. Bones and chest wall: No suspicious bony lesions. Overlying soft tissues appear unremarkable. IMPRESSION: No acute cardiopulmonary process demonstrated radiographically. Reviewed by: Augusto Kaur MD on 07/18/2022 4:07 PM PDT Approved by: Augusto Kaur MD on 07/18/2022 4:07 PM PDT Station ID: [id number]
[2022-07-18] MEDS ORDERED: NITROGLYCERIN SL 0.4 MG TABLET SL STA (17:34)
--- NOTE | 2022-07-18 17:39 | ED Physician Documentation ---
History of Present Illness - Stated complaint Stated Complaint: CHEST PRESSURE/LEG SWELLING - Chief complaint Chief Complaint: Cardiac - Additonal information Additional information: 87-year-old female presents to the emergency department for evaluation of 3 days of what she describes as substernal chest pain and chest pressure. It is not exertional. It is nonradiating. No associated nausea or vomiting. She has a remote history of A-fib as well as hypertension. She is not anticoagulated. She did see her primary care provider last week and had a referral placed for a stress test but that has not yet been completed. States that for the last 3 days she has been noticing some swelling in her lower extremities. No cough or fevers. Meds: Levothyroxine, losartan, Lasix, amlodipine, potassium chloride Review of Systems Constitutional: reports: Reviewed and negative Throat: reports: Reviewed and negative Cardiac: reports: Chest pain / pressure, Pedal edema. denies: Palpitations Respiratory: reports: Reviewed and negative GI: reports: Reviewed and negative : reports: Reviewed and negative Skin: reports: Reviewed and negative PD PAST MEDICAL HISTORY - Past Medical History Cardiovascular: Congestive heart failure, Hypertension, Other Respiratory: None Endocrine/Autoimmune: Type 2 diabetes GI: None TECHNOLOGY SPECIALIST: None : None HEENT: None Psych: Depression, Anxiety Musculoskeletal: Osteoarthritis Derm: None - Past Surgical History Past Surgical History: Yes General: Appendectomy, Colonoscopy /TECHNOLOGY SPECIALIST: Hysterectomy, Other - Present Medications Home Medications: Ambulatory Orders Medication Instructions Recorded Confirmed Levothyroxine [Synthroid] 25 mcg PO QDAC 08/11/14 12/21/20 Calcium Carbonate/Vitamin D3 1 each PO BID 05/28/17 09/12/20 [Caltrate 600 Plus D3 Tablet] Furosemide [Lasix] 20 mg PO QDBREAKFAST 05/28/17 12/21/20 Glucosamine HCl/Chondroitin Medeiros 1 each PO BID 05/28/17 12/21/20 [Endur-Flex Sr Tablet] Losartan Potassium [Cozaar] 100 mg PO DAILY 05/28/17 09/12/20 Magnesium 250 mg PO QPM 05/28/17 09/12/20 Potassium Chloride [Klor-Con 10] 10 meq PO QDBREAKFAST 05/28/17 12/21/20 traZODone [Desyrel] 50 mg PO DAILY 09/12/20 12/21/20 Amlodipine Besylate [Norvasc] 1 tab PO DAILY 12/21/20 12/21/20 Aspirin [Cubero Aspirin] 1 tab PO DAILY 12/21/20 12/21/20 Citalopram Hydrobromide [Celexa] 1 tab PO DAILY 12/21/20 12/21/20 Furosemide [Lasix] 1 tab PO DAILY 12/21/20 12/21/20 LORazepam [Ativan] 1 tab PO DAILY 12/21/20 12/21/20 Losartan Potassium [Cozaar] 1 tab PO DAILY 12/21/20 12/21/20 dexAMETHasone [Decadron] 4 mg PO DAILY #5 tablet 12/21/20 Nitroglycerin [Nitrostat] 0.4 mg SL Q5MIN PRN #25 tablet 07/18/22 - Allergies Allergies/Adverse Reactions: Allergies Allergy/AdvReac Type Severity Reaction Status Date / Time codeine [Codeine] Allergy Hallucinati Verified 07/18/22 15:31 ons Opioids-Meperidine and Allergy Unknown Verified 07/18/22 15:31 Related [Opioids-Meperidine & Related] Opioids-Methadone and Related Allergy Unknown Verified 07/18/22 15:31 [Opioids-Methadone & Related] - Social History Does the pt smoke?: No Smoking Status: Never smoker Does the pt drink ETOH?: Yes Does the pt have substance abuse?: No - Immunizations Immunizations are current?: No Immunizations: TDAP >10years/unknown - POLST Patient has POLST: No POLST Status: Full Code PD ED PE NORMAL - General General: Alert and oriented X 3, No acute distress, Well developed/nourished - HEENT HEENT: Atraumatic, Moist mucous membranes - Neck Neck: Supple, no meningeal sign, No adenopathy - Cardiac Cardiac: RRR, No murmur - Respiratory Respiratory: No respiratory distress, Clear bilaterally - Abdomen Abdomen: Normal bowel sounds, Soft Results - Vitals Vitals: Vital Signs - 24 hr 07/18/22 07/18/22 07/18/22 15:22 17:56 18:10 Temperature 36.1 C L Heart Rate 57 L 61 66 Respiratory 18 17 19 Rate Blood Pressure 174/71 H 157/76 H 155/79 H O2 Saturation 96 100 99 07/18/22 19:00 Temperature Heart Rate 59 L Respiratory 16 Rate Blood Pressure 166/109 H O2 Saturation 100 Oxygen O2 Source Nasal cannula - EKG (time done) 1527 EKG releavant findings:: EKG personally interpreted by author of this note. Relevant findings are: Rate: Rate (enter#) (57) Rhythm: NSR [place]: Normal Intervals: Normal PA QRS: Normal Compare to prior EKG: Unchanged from prior EKG, Old EKG unavailable Computer interpretation: Agree with computer - Labs Labs: Laboratory Tests 07/18/22 07/18/22 07/18/22 15:32 15:47 15:47 WBC 7.0 RBC 3.90 L Hgb 12.1 Hct 36.9 L MCV 94.6 MCH 31.0 MCHC 32.8 RDW 12.8 Plt Count 189 MPV 9.6 Neut # (Auto) 4.0 Lymph # (Auto) 2.0 [place] # (Auto) 0.8 Eos # (Auto) 0.1 Baso # (Auto) 0.1 Absolute Nucleated RBC 0.00 Nucleated RBC % 0.0 Sodium 135 Potassium 3.5 Chloride 100 L Carbon Dioxide 28 Anion Gap 7.0 BUN 16 Creatinine 0.8 Estimated GFR (MDRD) 68 L Glucose 110 H Calcium 8.4 L Total Bilirubin 0.4 AST 17 ALT 14 Alkaline Phosphatase 55 Troponin I High Sens 16.3 H* B-Natriuretic Peptide Total Protein 6.3 L Albumin 3.6 Globulin 2.7 Albumin/Globulin Ratio 1.3 Lipase 38 07/18/22 07/18/22 17:33 17:33 WBC RBC Hgb Hct MCV MCH MCHC RDW Plt Count MPV Neut # (Auto) Lymph # (Auto) [place] # (Auto) Eos # (Auto) Baso # (Auto) Absolute Nucleated RBC Nucleated RBC % Sodium Potassium Chloride Carbon Dioxide Anion Gap BUN Creatinine Estimated GFR (MDRD) Glucose Calcium Total Bilirubin AST ALT Alkaline Phosphatase Troponin I High Sens 17.2 H* B-Natriuretic Peptide 231 H Total Protein Albumin Globulin Albumin/Globulin Ratio Lipase - Rads (name of study) cxr Relevant Findings:: Final report received (No acute cardiopulmonary process) PD Medical Decision Making - ED course Complexity details: reviewed results, re-evaluated patient, considered differential, d/w patient ED course: 87-year-old female presents emergency department for evaluation of 2 days substernal chest pain and chest pressure. It is not exertional. No associated diaphoresis or nausea. No radiation of the pain. She did see her primary care provider last week and had a referral pending for a stress test though it has not yet been completed. Here in the emergency department the patient has an EKG that is nonischemic. Her initial troponin was 16 and on repeat is 17 essentially flat. We did obtain a CBC electrolytes as well as a BNP. Per my interpretation no acute worrisome findings. The patient had reported mild leg swelling for the last 3 days but her BNP is 231. Her chest x-ray shows no findings of pneumonia, pleural effusion congestive heart failure or volume overload. She does take Lasix daily. For this leg swelling I have advised her to take an extra dose of Lasix. With regards to the chest pain and chest pressure it is possible that this is an anginal equivalent as she did have good resolution with a dose of nitroglycerin. I did offer the patient to consider the possibility of evaluation in transfer at a hospital that had cardiology services but she did not feel that this was necessary. She feels that she can get a stress test completed in a timely manner through her primary care provider as such she will be discharged with a prescription for nitroglycerin. She was advised that should nitroglycerin fail to improve chest pain and chest pressure at home she would return immediately to the ER. She is also advised to begin taking a daily aspirin. Departure - Departure Disposition: 01 Home, Self Care Clinical Impression: Chest pain Qualifiers: Chest pain type: unspecified Qualified Code(s): R07.9 - Chest pain, unspecified Condition: Stable Record reviewed to determine appropriate education?: Yes Instructions: Angina Dc Follow-Up: Alla Lozada MD [Primary Care Provider] - Prescriptions: Nitroglycerin [Nitrostat] 0.4 mg SL Q5MIN PRN #25 tablet PRN Reason: Chest Pain Comments: Josefa the reason you came to the emergency department was because you have been developing some chest pain and chest pressure. Your EKG looks good. 2 troponins that we obtained on you were just above the cutoff of normal. The first 1 was 16 and the second 1 was 17 the cutoff for normal in women is 15. We did give you medication called nitroglycerin which resolved you have the chest pain. I did offer to [facility] but you declined today. However it is critical that you obtain the outpatient stress test as soon as possible. Please discuss this with Dr. Lozada as soon as you can. I have sent a prescription for nitroglycerin to the [facility]. If you develop chest pain or chest pressure at home you are to take nitroglycerin under the tongue. If you find that this does not resolve your chest pain or pressure you are to return immediately to the ER. I also recommend that you begin taking a daily 81 mg aspirin.
[2022-07-18 19:36] VITALS: BP 183/79
== END 2022-07-18 19:45 | disposition home or self-care (01) ==
LOC: ED 15:14
DX: R07.9 Chest pain, unspecified (principal); R60.0 Localized edema
CPT/HCPCS: 36415; 71045; 80053; 83690; 83880; 84484; 85025; 93005; 99284; A9270

== ENCOUNTER 2022-08-12 15:04 | Outpatient (CLI) | payer MEDICARE ==
--- NOTE | 2022-08-12 15:42 | XRAY Report ---
PROCEDURE: Chest 2 View X-Ray INDICATIONS: ACUTE COVID TECHNIQUE: 2 views of the chest were acquired. COMPARISON: None. FINDINGS: Surgical changes and devices: None. Lungs and pleura: No pleural effusions or pneumothorax. Lungs are clear. Mediastinum: Mediastinal contours appear normal. Heart size is normal. Bones and chest wall: No suspicious bony lesions. Overlying soft tissues appear unremarkable. IMPRESSION: No acute cardiopulmonary process. Reviewed by: Saji Garcia on 08/12/2022 3:41 PM PDT Approved by: Saji Garcia on 08/12/2022 3:41 PM PDT Station ID: [id number]
== END 2022-08-12 15:05 | disposition home or self-care (01) ==
LOC: DI 15:04
PROVIDERS: ATTEND Physician Assistant
DX: U07.1 COVID-19 (principal)

== ENCOUNTER 2022-10-12 12:28 | Outpatient (CLI) | payer MEDICARE ==
--- NOTE | 2022-10-12 14:53 | Ultrasound Report ---
PROCEDURE: Duplex Ext Veins Left INDICATIONS: EDEMA TECHNIQUE: Real-time imaging, as well as color and pulse Doppler interrogation, were performed of the lower extr emity deep veins from the inguinal ligament to the popliteal fossa. COMPARISON: None. FINDINGS: The deep veins are normally compressible, and free of intraluminal thrombus. Color and pu lse Doppler demonstrate normal phasic intraluminal flow. There is normal augmentation response to di stal compression maneuver. IMPRESSION: Negative left lower extremity duplex venous ultrasound for DVT. Reviewed by: Perez Haynes MD on 10/12/2022 2:51 PM PDT Approved by: Perez Haynes MD on 10/12/2022 2:51 PM PDT Station ID: [id number]
== END 2022-10-12 12:29 | disposition home or self-care (01) ==
LOC: DI 12:28
PROVIDERS: ATTEND Internal Medicine
DX: R60.0 Localized edema (principal)

== ENCOUNTER 2022-11-08 10:49 | Outpatient (CLI) | payer MEDICARE ==
--- NOTE | 2022-11-08 10:46 | CARDIAC PROCEDURE NOTE ---
Stress Test Report Service Date: 11/08/22 Service Time: 11:00 Ordering Provider: Alla Lozada MD Indication for Test: Assess intermittent chest discomfort, in the setting of contemplating possible orthopedic (knee) surgery. Significant Medical History: Josefa has a history of hypertension treated for many years and in 2011 she developed heart failure symptoms, primarily lower extremity swelling, with an echocardiogram in 2011 showing preserved LV ejection fraction but with grade 1 diastolic dysfunction. She has been treated since with furosemide along with her other BP meds and she wears compression stockings. She was rather active until a few months ago, walking her dog 2 miles 6 days/week, however her dog and she developed COVID infection, with increased lower extremity swelling and diuretic requirement (that has subsequently returned to baseline). She mostly recovered her overall well being, but she is less active now, primarily due to multiple achy joints. She estimates walking 1-1/2 miles approximately 3 days/week on a route that includes hills that she is able to climb successfully. She was seen by her primary provider, Dr. Lozada, in June after experiencing some episodes of rest chest discomfort. After another 3 day episode of intermittent chest discomfort/pressure she was seen at the [facility] in late June, with concern for slight ST depression on EKG and she had 2 troponins that were borderline elevated in the range of 1617 (ULN 14.8). She was recommended to carry nitroglycerin for recurrent chest discomfort and there was an intention for her to have stress t esting done in the near term, but the timeframe was shifted back due to her experiencing COVID. She also notes that around the time she was seen at the Emergency Department she changed her morning practice of taking her thyroid replacement medication first thing in the morning with a small amount of water and then lying down. Now she takes a large amount of water and remains upright and has not had any further chest discomfort. She questions whether there may have been a GI origin of her pressure-like chest discomfort. Cardiac Risk Factors: Positive for history of hypertension (treated ~15 yrs), and family history of premature sudden cardiac (mother at age 45; she has history of remote cigarette smoking, but quit in 1976, thus not likely contributory to current ASCVD risk. She was felt to be diabetic at one time but with improvements in diet and exercise her HbA1c normalized. She denies history of hyperlipidemia (non-treated lipids in 07/21 included TChol 164, LDLc 106, HDLc 46, TG 61). Type of Stress Test: ETT with Echocardiography Procedure: -Exercise Treadmill Test- After signing informed consent, the patient underwent resting echo imaging and then performed treadmill exercise using a Adán protocol. The patient exercised for 3 minutes 22 seconds and achieved a peak heart rate of 135 (100 percent predicted maximum heart rate for age), and an estimated workload of 5.1 METS. The test was terminated due to fatigue/shortness of breath. Resting heart rate: 64 Peak heart rate: 135 Normal response to exercise. Resting BP: 158/72 Peak BP: 216/75 Hypertensive at rest wth physiologic BP response to exercise. Rhythm during exercise: Sinus rhythm throughout, with intermittent PVCs (total of 18 identified by computer), more frequent in early Recovery with 2 PVC couplets noted. Symptoms: She had onset of significant dyspnea late in stage 1, that became limiting and necessitated discontinuation of walking, but no significant chest pain/pressure/discomfort. EKG at rest showed normal sinus rhythm, normal in all aspects. EKG at peak stress showed 1-1.[address] depression in leads II, V5 and V6, likely meeting diagnostic EKG criteria for ischemia. In Recovery HR rapidly/normally returned towards resting level, with slower decrease in BP (was 159/73 at 9:00). Echo imaging, performed at rest and with stress, will be reported separately. Danyel Celis MD, was present throughout this treadmill stress study and supervised it in its entirety. Summary: 1) Decreased exercise tolerance for age and sex, as evidenced by KIMMY of 34%. 2) Normal resting EKG. 3) Adequate level of exercise was achieved on this treadmill stress test. 4) Hypertensive at rest but with normal BP response to exercise. 5) Ischemic changes by EKG criteria were seen at peak stress. 6) Echo image interpretation reveals normal left ventricular size, wall thickness and systolic function, with appropriate hyperdynamic augmentation of all segments with exercise, indicating no evidence of prior infarct or inducible ischemia. Marked left atrial enlargement was observed but no significant valvular abnormality or elevation of estimated pulmonary artery systolic pressure seen on screening study. See separate report for more details. Conclusions and Recommendations: 1) Overall likely reassuring stress echocardiogram results, with ST depression appearing to be a false positive finding given stress associated echo image results. 2) She takes both amlodipine and losartan in the evening and brings a record of her blood pressure readings, most of which are in desired range in the morning. However her rather robust increase in blood pressure and slow return to normal, now probably 18 hours after last losartan dose suggest that she may have better daytime BP coverage if she were to take losartan in the morning. So she will change this practice moving forward and continue to monitor blood pressure for review with her primary provider.
== END 2022-11-08 10:50 | disposition home or self-care (01) ==
LOC: DI 10:49
PROVIDERS: ATTEND Internal Medicine
DX: R07.9 Chest pain, unspecified (principal); I11.0 Hypertensive heart disease with heart failure; I50.30 Unspecified diastolic (congestive) heart failure; Z86.16 Personal history of COVID-19; Z82.49 Family history of ischemic heart disease and other diseases of the circulatory system; Z87.891 Personal history of nicotine dependence
CPT/HCPCS: 93350

== ENCOUNTER 2023-01-12 12:56 | Outpatient (CLI) | payer MEDICARE ==
[2023-01-12 13:08] LABS: BASOPHILS # (AUTO) 0.1 10^3/uL (0.0-0.1); BASOPHILS % (AUTO) 1.1 %; EOSINOPHILS # (AUTO) 0.1 10^3/uL (0.0-0.7); EOSINOPHILS % (AUTO) 1.8 %; HCT - HEMATOCRIT 36.1 % (37.0-47.0); HGB - HEMOGLOBIN 12.2 g/dL (12.0-16.0); LYMPHOCYTES # (AUTO) 2.9 10^3/uL (1.5-3.5); LYMPHOCYTES % (AUTO) 44.7 %; MEAN CORPUSCULAR HEMOGLOBIN 31.9 pg (27.0-31.0); MEAN CORPUSCULAR HGB CONC 33.8 g/dL (32.0-36.0); MEAN CORPUSCULAR VOLUME 94.3 fL (81.0-99.0); MEAN PLATELET VOLUME 9.7 fL (7.9-10.8); MONOCYTES # (AUTO) 0.7 10^3/uL (0.0-1.0); MONOCYTES % (AUTO) 11.1 %; NEUTROPHILS # (AUTO) 2.7 10^3/uL (1.5-6.6); PLT - PLATELET COUNT 187 10^3/uL (130-450); RED BLOOD COUNT 3.83 10^6/uL (4.20-5.40); RED CELL DISTRIBUTION WIDTH 12.6 % (12.0-15.0); WHITE BLOOD COUNT 6.5 x10^3/uL (4.8-10.8)
[2023-01-12 13:33] LABS: CALCIUM 9.2 mg/dL (8.5-10.3); CREATININE 0.9 mg/dL (0.6-1.3)
== END 2023-01-12 12:57 | disposition home or self-care (01) ==
LOC: LAB 12:56
PROVIDERS: ATTEND Orthopaedic Surgery Foot and Ankle Surgery
DX: Z01.812 Encounter for preprocedural laboratory examination (principal)
CPT/HCPCS: 36415; 80048; 85025

== ENCOUNTER 2023-02-06 11:13 | Outpatient (CLI) | payer MEDICARE | END 2023-02-06 11:14 | disposition critical access hospital (66) | LOC: EMS 11:13 | DX: R55 Syncope and collapse (principal); R11.2 Nausea with vomiting, unspecified; R42 Dizziness and giddiness; R53.1 Weakness | CPT/HCPCS: A0425; A0427 ==

== ENCOUNTER 2023-02-06 11:27 | Observation (INO) | payer MEDICARE ==
--- OUTSIDE RECORDS SUMMARY | 2023-02-06 11:40 | EXTERNAL MEDICAL SUMMARY RPT | Continuity of Care Document ---
Author Name Unknown Address [address] [place] [address] Phone Organization [place] Address [address] [place] [address] Phone Care Team Providers Care Wire Twister Name Role Phone Unavailable Unavailable Unavailable Alla Lozada Unavailable Unavailable Allergies and Intolerances date description facility reaction severity 2023-01-31 10[facility]09[facility] Severe Medications date description facility 2023-01-31 00:00 Cetirizine [facility] 2023-02-03 00:00 Ondansetron [facility] 2023-01-31 00:00 Omeprazole [facility] 2023-01-31 00:00 Amlodipine [facility] 2023-01-31 00:00 Aspirin [facility] Problems date description facility 2023-02-03 06:08 Bilateral primary osteoarthriti s of [facility] 2023-02-03 06:08 Unilateral primary osteoarthrit , [facility] 2023-02-03 06:08 Other specified joint disorders , unspecified [facility] 2023-02-03 06:10 Bilateral primary osteoarthriti s of [facility] 2023-02-03 06:10 Unilateral primary osteoarthrit is, [facility] 2023-02-03 06:10 Other specified joint disorders , unspecified [facility] 2023-02-03 07:30 Bilateral primary osteoarthriti s of [facility] 2023-02-03 07:30 Unilateral primary osteoarthrit , [facility] 2023-02-03 07:30 Other specified joint disorders , unspecified [facility] 2023-02-03 07:48 Bilateral primary osteoarthriti s of [facility] 2023-02-03 07:48 Unilateral primary osteoarthrit is, [facility] 2023-02-03 07:48 [facility] Bilateral primary osteoarthriti s of [facility] 2023-02-03 11:24 Unilateral primary osteoarthrit is, left [facility] 2023-02-03 11:24 Other specified joint disorders , unspecified [facility] 2023-02-03 11:30 Bilateral primary osteoarthriti s of [facility] 2023-02-03 11:30 Unilateral primary osteoarthrit is, left [facility] 2023-02-03 11:30 Other specified joint disorders , unspecified [facility] 2023-02-04 11:13 Bilateral primary osteoarthriti s of [facility] 2023-02-04 11:13 Unilateral primary osteoarthrit is, [facility] 2023-02-04 11:13 Other specified [facility] 12:28 Bilateral primary osteoarthriti s of [facility] 2023-02-04 12:28 Unilateral primary osteoarthrit is, [facility] 2023-02-04 12:28 Other specified joint disorders , unspecified [facility] 2023-02-04 13:06 Bilateral primary osteoarthriti s of [facility] 2023-02-04 13:06 Unilateral primary osteoarthrit is, [facility] 2023-02-04 13:06 Other specified [facility] disorders [facility] Procedures date description facility 2023-02-03 00:00 Total Knee Arthroplasty (Left) [facility] Results/Labs test date facility value unit notes Social History date description facility 2023-02-03 00:00 Ex-smoker (finding) [facility] Vital Signs date measurement value units 2023-02-03 00:00 BMI 24.7 kg/m2 2023-02-03 00:00 height_metric 167.64 cm 2023-02-03 00:00 height_standard 66 in 2023-02-03 00:00 weight_metric 69.39 kg 2023-02-03 00:00 weight_standard 152.98 lb 2023-02-04 00:00 BP_diastolic 48 mmHg 2023-02-04 00:00 BP_systolic 133 mmHg 2023-02-04 00:00 heart_rate 56 /min 2023-02-04 00:00 o2_saturation 97 % 2023-02-04 00:00 respiration_rate 16 /min 2023-02-04 00:00 temperature_metric 36.33 C 2023-02-04 00:00 temperature_standard 97.4 F
[2023-02-06 12:02] LABS: BASOPHILS # (AUTO) 0.1 10^3/uL (0.0-0.1); BASOPHILS % (AUTO) 0.9 %; EOSINOPHILS # (AUTO) 0.2 10^3/uL (0.0-0.7); EOSINOPHILS % (AUTO) 2.6 %; HCT - HEMATOCRIT 27.2 % (37.0-47.0); HGB - HEMOGLOBIN 9.5 g/dL (12.0-16.0); LYMPHOCYTES % (AUTO) 15.1 %; MEAN CORPUSCULAR HGB CONC 34.9 g/dL (32.0-36.0); MEAN CORPUSCULAR VOLUME 91.6 fL (81.0-99.0); MEAN PLATELET VOLUME 9.8 fL (7.9-10.8); MONOCYTES # (AUTO) 0.8 10^3/uL (0.0-1.0); MONOCYTES % (AUTO) 11.3 %; NEUTROPHILS # (AUTO) 4.8 10^3/uL (1.5-6.6); NEUTROPHILS % (AUTO) 69.7 %; PLT - PLATELET COUNT 158 10^3/uL (130-450); RED BLOOD COUNT 2.97 10^6/uL (4.20-5.40); RED CELL DISTRIBUTION WIDTH 11.7 % (12.0-15.0); WHITE BLOOD COUNT 6.9 x10^3/uL (4.8-10.8)
[2023-02-06 12:12] LABS: ACETAMINOPHEN 14.9 ug/mL; ALBUMIN 3.2 g/dL (3.2-5.5); ALBUMIN/GLOBULIN RATIO 1.5 (1.0-2.2); ALKALINE PHOSPHATASE 54 IU/L (42-121); ALT ALANINE AMINOTRANSFERASE 6 IU/L (10-60); AST ASPARTATE AMINOTRANSFERASE 13 IU/L (10-42); BILIRUBIN,TOTAL 0.7 mg/dL (0.2-1.0); BUN - BLOOD UREA NITROGEN 12 mg/dL (6-20); CALCIUM 8.3 mg/dL (8.5-10.3); CARBON DIOXIDE - CO2 28 mmol/L (21-32); CHLORIDE 87 mmol/L (101-111); CK- CREATINE KINASE 35 IU/L (30-223); CREATININE 0.8 mg/dL (0.6-1.3); ETOH - ETHANOL < 10.0 mg/dL; GFR - MDRD 68 (>89); GLUCOSE 125 mg/dL (74-104); LIPASE 12 U/L (11-82); MAGNESIUM 1.2 mg/dL (1.7-2.3); POTASSIUM 3.4 mmol/L (3.5-4.5); SODIUM 121 mmol/L (135-145); TOTAL PROTEIN 5.4 g/dL (6.4-8.9)
[2023-02-06 12:14] LABS: SALICYLATE < 1.5 mg/dL
[2023-02-06 12:28] LABS: THYROID STIMULATING HORMONE 4.72 uIU/mL (0.34-5.60)
--- NOTE | 2023-02-06 13:02 | ED Physician Documentation ---
History of Present Illness - Stated complaint Stated Complaint: NEAR SYNCOPE - Chief complaint Chief Complaint: General - Additonal information Additional information: 87-year-old female was brought to the emergency department for evaluation of a near syncopal episode. She did undergo a left total knee replacement at [facility] on Monday. Over the course of the weekend she has had difficulty achieving pain control. She has increased her tramadol from 1 every 6 hours to 1 every 4 hours as well as started eating cannabis brownies every 4 hours for the last 24 hours. She states that finally got her pain under control. She woke up this a.m. Took her tramadol and walk to the kitchen. Her daughter made breakfast. Shortly after breakfast and coffee she went to the bathroom to try to defecate which she has not done since surgery. While in the bathroom she vomited. Her daughter walked her back to the bedroom. They sat on the bed for a while and her daughter checked her blood pressure and found that it was in the 80s over 50s. The patient requested to sit in her reclining chair they were walking to the chair when she had a near syncopal episode and was lowered to the ground. The patient denies she was having any chest pain or shortness of air. Review of Systems Constitutional: denies: Fever Cardiac: denies: Chest pain / pressure, Palpitations Respiratory: denies: Dyspnea, Cough GI: reports: Reviewed and negative : reports: Reviewed and negative Musculoskeletal: denies: Neck pain Neurologic: reports: Syncope. denies: Focal weakness, Numbness, Seizure, Confused, LOC Psychiatric: reports: Reviewed and negative PD PAST MEDICAL HISTORY - Past Medical History Cardiovascular: Congestive heart failure, Hypertension, Other Respiratory: None Endocrine/Autoimmune: Type 2 diabetes GI: None [employer] CONSULTANT: None : None HEENT: None Psych: Depression, Anxiety Musculoskeletal: Osteoarthritis Derm: None - Past Surgical History Past Surgical History: Yes General: Appendectomy, Colonoscopy /[employer] CONSULTANT: Hysterectomy, Other - Present Medications Home Medications: Ambulatory Orders Medication Instructions Recorded Confirmed Levothyroxine [Synthroid] 25 mcg PO QDAC 08/11/14 12/21/20 Calcium Carbonate/Vitamin D3 1 each PO BID 05/28/17 09/12/20 [Caltrate 600 Plus D3 Tablet] Furosemide [Lasix] 20 mg PO QDBREAKFAST 05/28/17 12/21/20 Glucosamine HCl/Chondroitin Medeiros 1 each PO BID 05/28/17 12/21/20 [Endur-Flex Sr Tablet] Losartan Potassium [Cozaar] 100 mg PO DAILY 05/28/17 09/12/20 Magnesium 250 mg PO QPM 05/28/17 09/12/20 Potassium Chloride [Klor-Con 10] 10 meq PO QDBREAKFAST 05/28/17 12/21/20 traZODone [Desyrel] 50 mg PO DAILY 09/12/20 12/21/20 Amlodipine Besylate [Norvasc] 1 tab PO DAILY 12/21/20 12/21/20 Aspirin [Rowley Aspirin] 1 tab PO DAILY 12/21/20 12/21/20 Citalopram Hydrobromide [Celexa] 1 tab PO DAILY 12/21/20 12/21/20 Furosemide [Lasix] 1 tab PO DAILY 12/21/20 12/21/20 LORazepam [Ativan] 1 tab PO DAILY 12/21/20 12/21/20 Losartan Potassium [Cozaar] 1 tab PO DAILY 12/21/20 12/21/20 dexAMETHasone [Decadron] 4 mg PO DAILY #5 tablet 12/21/20 Nitroglycerin [Nitrostat] 0.4 mg SL Q5MIN PRN #25 tablet 07/18/22 - Allergies Allergies/Adverse Reactions: Allergies Allergy/AdvReac Type Severity Reaction Status Date / Time codeine [Codeine] Allergy Hallucinati Verified 07/18/22 15:31 ons Opioids-Meperidine and Allergy Unknown Verified 07/18/22 15:31 Related [Opioids-Meperidine & Related] Opioids-Methadone and Related Allergy Unknown Verified 07/18/22 15:31 [Opioids-Methadone & Related] - Social History Does the pt smoke?: No Smoking Status: Never smoker Does the pt drink ETOH?: Yes Does the pt have substance abuse?: No - Immunizations Immunizations are current?: No Immunizations: TDAP >10years/unknown - POLST Patient has POLST: No POLST Status: Full Code PD ED PE NORMAL - General General: Alert and oriented X 3, No acute distress, Well developed/nourished - HEENT HEENT: Atraumatic, Moist mucous membranes - Neck Neck: Supple, no meningeal sign, No adenopathy - Cardiac Cardiac: RRR. No: No murmur (2+ systolic murmur) - Respiratory Respiratory: No respiratory distress, Clear bilaterally - Abdomen Abdomen: Normal bowel sounds, Soft - Derm Derm: Other (left knee mildly swollen; OR bandage inplace; no drainage. No posterior calf pain tenderness) Results - Vitals Vitals: Vital Signs - 24 hr 02/06/23 02/06/23 11:33 12:56 Temperature 36.1 C L Heart Rate 60 68 Heart Rate [ 66 Sitting] Heart Rate [ 68 Standing] Heart Rate [ 64 Supine] Respiratory 20 19 Rate Blood Pressure 135/97 H 155/68 H Blood Pressure 168/59 H [Sitting] Blood Pressure 155/68 H [Standing] Blood Pressure 168/70 H [Supine] O2 Saturation 95 98 Oxygen O2 Source Room air - EKG (time done) 1129 EKG releavant findings:: EKG personally interpreted by author of this note. Relevant findings are: Rate: Rate (enter#) (58) Rhythm: NSR [place]: Normal Intervals: Normal [place]. No: Prolonged QT QRS: Normal Ischemia: Normal ST segments Compare to prior EKG: Unchanged from prior EKG Computer interpretation: Agree with computer - Labs Labs: Microbiology 02/06/23 12:30 Occult Blood - Final Stool Laboratory Tests 02/06/23 02/06/23 02/06/23 11:52 11:52 11:52 WBC 6.9 RBC 2.97 L Hgb 9.5 L Hct 27.2 L MCV 91.6 MCH 32.0 H MCHC 34.9 RDW 11.7 L Plt Count 158 MPV 9.8 Neut # (Auto) 4.8 Lymph # (Auto) 1.0 L [place] # (Auto) 0.8 Eos # (Auto) 0.2 Baso # (Auto) 0.1 Absolute Nucleated RBC 0.00 Nucleated RBC % 0.0 Sodium 121 L Potassium 3.4 L Chloride 87 L Carbon Dioxide 28 Anion Gap 6.0 BUN 12 Creatinine 0.8 Estimated GFR (MDRD) 68 L Glucose 125 H Calcium 8.3 L Magnesium 1.2 L Total Bilirubin 0.7 AST 13 ALT 6 L Alkaline Phosphatase 54 Total Creatine Kinase 35 Troponin I High Sens 6.6 Total Protein 5.4 L Albumin 3.2 Globulin 2.2 Albumin/Globulin Ratio 1.5 Lipase 12 Vitamin B12 139 L Folate 19.7 TSH 4.72 Salicylates < 1.5 Acetaminophen 14.9 Ethyl Alcohol < 10.0 PD Medical Decision Making - ED course Complexity details: reviewed results, re-evaluated patient, considered differential, d/w patient ED course: 87-year-old female presents emergency department for evaluation of a near syncopal event this morning. She did undergo a left total knee replacement on Monday at [facility]. Over the course the week and she has had difficulty achieving analgesia and has increased her tramadol from 1 every 6-1 every 4 hours. Also began consuming cannabis brownies yesterday afternoon every 4 hours. This morning she was ambulatory and had not defecated since the surgery. She went to the bathroom to try and have a bowel movement and began vomiting. She walked to the bed where she was found to be hypotensive. She then walked to her recliner where she nearly fainted. Here in the emergency department she is alert and well-appearing. We have checked orthostatics and find that they are negative. Labs obtained today show a new anemia with a hemoglobin of 9.5 in comparison to several weeks ago. This may be related to the recent total knee replacement. However she does have some modest electrolyte derangement with a sodium of 121. She has normal BUN and creatinine. Troponin was not elevated. EKG non ischemic. nbo chest pain; ACS ruled out. I did do a rectal exam and had a scant amount of stool in the vault that was pale white or yellow, which was Guaiac negative. however given her age, the syncope and recent surgery she warrants observation admission for further management of this. The hyponatremia will also need to be corrected as it is likely contributing. However the combination of tramadol, cannabils is also likely contributing to her syncope. A CT angiogram of the chest is pending to rule out a PE as a cause of syncope. I spoke with our hospitalist who graciously agrees to bring the patient in for further evaluation and management of her near syncope and hyponatremia. Departure - Departure Disposition: 66 [facility] DC/Xfer Clinical Impression: Syncope and collapse, Status post total knee replacement, left, Hyponatremia Discharge Date/Time: 02/06/23 14:32
[2023-02-06] MEDS ORDERED: ONDANSETRON 4 MG/2 ML VIAL IVP PRN (13:53)
[2023-02-06] MEDS ORDERED: SODIUM CHLORIDE FLUSH 0.9% 10 ML SYRINGE IVP PRN (13:53)
[2023-02-06] MEDS ORDERED: MAGNESIUM SULFATE 2 GRAM 2 GM/50 ML BAG IV ONE (13:58)
[2023-02-06] MEDS ORDERED: traMADol 50 MG TABLET PO STA (13:59)
--- NOTE | 2023-02-06 14:05 | HISTORY & PHYSICAL EXAMINATION ---
Chief Complaint - Chief Complaint Chief Complaint: Syncope History of Present Illness - Admitted From Admitted From:: ED - History Obtained From History obtained from: ED provider and the patient and patient's daughter at bedside - History of Present Illness HPI Comment/Other: This is a 87-year-old female with a past medical history significant for allergic asthma, HTN, prior DM2, Depression, Anxiety, osteoarthritis. Pt used to walk 2 miles per day and still lifts weights twice per week, and she lost weight and has not needed any medication for her DM2 for > 5 years. Three days ago the patient had elective total left knee surgery done at [facility]. After discharge she was prescribed to take Tylenol with Tramadol every 4-6 hours, and the pt needed Tramadol every 4 hours for pain control. She also started eating a cannabis truffle every 4 hours, where she normally takes only one cannibis truffle every night. Patient does report that she usually drinks Gatorade daily, but ever since the operation, because of pain when getting up to get Gatorade, she recently has only been drinking water. Today she felt constipated and while sitting on the toilet, she vomited in a waste basket, then walked to her bedroom, and checked her BP which was 88/50. She th en vomited again, then got up, using a walker, to walk back to the couch. While walking, with her friend behind her and daughter leading the way, the pt had syncope. The 2 bystanders layed her on the ground and daughter did sternal massage. Mom awoke immediately. EMS was called. On presentation to the ER she was lethargic but nonfocal on neuro exam. Blood pressure here was 135/97 and she was not orthostatic. Work-up showed a hemoglobin of 9.5 (it was 12.2 three weeks ago), sodium 121 (her sodium usually runs 135), magnesium 1.2. The patient was put on saline IV in the ED. The ED provider spoke to me about this patient. The patient will be placed in Observation to evaluate and treat syncope, nausea/vomiting, hyponatremia and to continue pain management for the recent left knee surgery. I asked the patient about her CODE BLUE wishes and she wants to be a Full Code. 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 She had 5 children and 13 grandchildren. Living arrangement: At home Living Situation: Alone (The daughter lives next door.) Social History Notes: Pt reports she quit cigarette smoking 40 years ago. No alcohol or drug use. - Substance History Use: Uses substance without health or social issues: NONE - POLST Patient has POLST: No POLST Status: Full Code Meds/Allgy - Home Medications Home Medications: Ambulatory Orders Medication Instructions Recorded Confirmed Levothyroxine [Synthroid] 25 mcg PO QDAC 08/11/14 02/06/23 Furosemide [Lasix] 20 mg PO QDBREAKFAST 05/28/17 02/06/23 Losartan Potassium [Cozaar] 100 mg PO DAILY 05/28/17 02/06/23 Potassium Chloride [Klor-Con 10] 10 meq PO QDBREAKFAST 05/28/17 02/06/23 traZODone [Desyrel] 50 mg PO HS 09/12/20 02/06/23 Amlodipine Besylate [Norvasc] 2.5 mg PO QPM 12/21/20 02/06/23 Aspirin [[place] Aspirin] 81 mg PO DAILY 12/21/20 02/06/23 Nitroglycerin [Nitrostat] 0.4 mg SL Q5MIN PRN #25 tablet 07/18/22 02/06/23 Acetaminophen [Acetaminophen Extra 1,000 mg PO PRN PRN 02/06/23 02/06/23 Strength] Cetirizine [ZyrTEC] 10 mg PO DAILY 02/06/23 02/06/23 Hydrocortisone Supp [Anusol-Hc] 25 mg ID PRN PRN 02/06/23 02/06/23 Meloxicam 15 mg PO DAILY 02/06/23 02/06/23 Omeprazole Magnesium 20 mg PO DAILY 02/06/23 02/06/23 traMADol [Ultram] 50 mg PO Q4HR PRN 02/06/23 02/06/23 - Allergies Allergies/Adverse Reactions: Allergies Allergy/AdvReac Type Severity Reaction Status Date / Time codeine [Codeine] Allergy Hallucinati Verified 07/18/22 15:31 ons Opioids-Meperidine and Allergy Unknown Verified 07/18/22 15:31 Related [Opioids-Meperidine & Related] Opioids-Methadone and Related Allergy Unknown Verified 07/18/22 15:31 [Opioids-Methadone & Related] Review of Systems - All Other Systems All Other Systems: reports: Reviewed and negative (All sx as in HPI, no recent travel.) Exam - Vital Signs Vital Signs: Vital Signs x48h Temp Pulse Pulse Pulse Pulse Resp BP 02/06/23 12:56 68 66 68 64 19 155/68 H 02/06/23 11:33 36.1 C L 60 20 135/97 H BP BP BP Pulse Ox 02/06/23 12:56 168/59 H 155/68 H 168/70 H 98 02/06/23 11:33 95 - Physical Exam General Appearance: positive: No acute distress, Alert Eyes Bilateral: positive: Normal inspection, EOMI ENT: positive: ENT inspection nml, No signs of dehydration Neck: positive: Nml inspection, No JVD Respiratory: positive: No respiratory distress, Breath sounds nml Cardiovascular: positive: Regular rate & rhythm, No murmur Abdomen: positive: Non-tender, Nml bowel sounds, No distention Skin: positive: Warm, Dry Extremities: positive: Other (L knee swollen and tender. L leg has tense 3+ edema to knee, no calf tenderness) Neurologic/Psychiatric: positive: Oriented x3, Motor nml Conclusion/Plan - Problem List (1) Syncope and collapse Conclusion/Plan: This is probably multifactorial: From volume loss due to Lasix and HCTZ meds and recent surgery, and her low blood pressure could be from narcotic meds, plus excessive BP meds, and recent NPO status related to surgery. Plan: Place in Observation status on telemetry Give IV saline as in #2 Will not give her home meds of Lasix plus HCTZ. Will put hold parameters on the daily ARB Monitor I's and O's and daily weights Check orthostatic vital signs Await reconciled med list and hold meds that drop BP excessively (2) Hyponatremia Conclusion/Plan: She appears euvolemic on exam. Given the syncope and low blood pressures, she is probably volume depleted, therefore probably has hypovolemic hyponatremia. In addition, the recent water intake, which is not her normal, has added to hemodilution. Plan: Will not give her home meds of Lasix plus HCTZ Cont hydration using IV NS. Goal is to correct the serum sodium by 6 to 8 mEq in the next 24 hours Follow sodium every 12 hours Follow BMP daily I advised her to return to hydrating with Gatorade, not free water (3) Anemia Conclusion/Plan: Most likely due to blood loss at the recent orthopedic surgery, plus hemodilutional, or possibly from underlying deficiencies Plan: Check B12, folate, iron stores and replace if low If hemoglobin less than 7 will transfuse (4) N&V (nausea and vomiting) Conclusion/Plan: Possibly from narcotics or from recent increase in marijuana use. Also possibly vasovagal due to pain. Plan: Obtain abd/pelvis CT, which was not done in ER Anti-emetics prn Advance her diet slowly Stopping frequent marijuana use advised (5) Status post total knee replacement, left Conclusion/Plan: As per Hx: Will cont Tylenol and Tramadol for pain control Will order PT and OT, to continue while here (6) Leg edema, left Conclusion/Plan: The patient feels that the swelling started right after surgery and because she had no ice on it today, it is worse than yesterday. ED provider appropriately was thinking about DVT with this finding, and PE which may have caused the syncope CTA chest was done and it showed Plan: Continue with leg elevation and ice packs to the knee Will not give her home Lasix dose while she needs saline (7) Hx of essential hypertension Conclusion/Plan: Plan: Will not give her home meds of Lasix plus HCTZ Will put hold parameters on her other BP meds - Lab Results Fish Bones: 02/06/23 11:52 02/06/23 11:52 - Diagnostic Imaging Results Diagnostic Imaging Results: positive: Final report reviewed
[2023-02-06 15:26] LABS: MUDS CUTOFF CONCENTRATIONS CUTOFF CONC BELOW:
[2023-02-06 15:28] LABS: BILIRUBIN,URINE NEGATIVE (NEGATIVE); GLUCOSE, URINE (UA) NEGATIVE (NEGATIVE); KETONES,URINE (UA) 15 mg/dL (NEGATIVE); LEUKOCYTE ESTERASE, URINE NEGATIVE (NEGATIVE); NITRITE,URINE NEGATIVE (NEGATIVE); OCCULT BLOOD,URINE TRACE-INTA (NEGATIVE); PROTEIN,URINE NEGATIVE (NEGATIVE); UROBILINOGEN,URINE 0.2 (NORMAL) E.U./dL (NORMAL)
--- NOTE | 2023-02-06 15:31 | PHARMACY PROGRESS NOTE ---
- Best Possible Medication History Admit Date and Time: 02/06/23 0278 Processed by: Pharmacy Medication History completed: Yes Patient Interview: Completed Secondary Source(s): Written medication list, Other family member, Insurance records (PATIENT ALSO TAKES 10MG OF CANNABIS ORALLY AT BEDTIME ) As the person ultimately responsible for medication therapy, providers are able to order a medication from an existing home medication list in [facility] via the "Reconcile Routine" prior to Confirmation of that medication by support director. Such practice is discouraged except when the physician, in their clinical judgment, deems that a medical need exists for a medication without regard to previous use.
[2023-02-06 15:33] LABS: CLARITY,URINE CLEAR (CLEAR)
[2023-02-06 15:43] LABS: AMPHETAMINE SCREEN,URINE NEGATIVE (NEGATIVE); BARBITURATE SCREEN,UR NEGATIVE (NEGATIVE); BENZODIAZEPINES SCREEN, URINE NEGATIVE (NEGATIVE); COCAINE SCREEN URINE NEGATIVE (NEGATIVE); METHADONE SCREEN, URINE NEGATIVE (NEGATIVE); METHAMPHETAMINES SCREEN, URINE NEGATIVE (NEGATIVE); OPIATE SCREEN, URINE NEGATIVE (NEGATIVE); OXYCODONE SCREEN, URINE NEGATIVE (NEGATIVE); PROPOXYPHENE SCREEN, URINE NEGATIVE (NEGATIVE); THC CANNABINOID SCREEN, URINE POSITIVE (NEGATIVE); TRICYCLIC ANTIDEPRESSANT,URINE NEGATIVE (NEGATIVE)
[2023-02-06] MEDS ORDERED: iohexoL-300 100 ML VIAL IVP ONE (16:04)
--- NOTE | 2023-02-06 17:04 | CT Report ---
PROCEDURE: ANGIO CHEST W/WO INDICATIONS: r/o PE; syncope. Recent knee replacement. CONTRAST: 100mL Omni 300 TECHNIQUE: After the administration of intravenous contrast, 2 mm axial images were acquired from the pulmonary apices to the posterior costophrenic angles during the arterial phase. In addition, 1 mm lung kernel and 5 mm soft tissue kernel reconstructions were performed. 3-dimensional coronal oblique maximum int ensity projection (MIP) reformats, 8 mm axial MIP, and 5 mm coronal and sagittal MPR reformats were t hen performed through the thorax. For radiation dose reduction, the following was used: automated exp osure control, adjustment of mA and/or kV according to patient size. COMPARISON: None FINDINGS: Image quality: Excellent. Large vessels: No filling defects within the opacified pulmonary arteries, accounting for motion and contrast timing. No evidence of acute aortic syndrome or aortic aneurysm. Lungs and pleura: No consolidation. No pleural effusions. No pneumothorax. 7 mm right upper lobe nod ule (series 4, image 79), indeterminate in the setting of malignancy. Mediastinum: Heart size is normal. No pericardial effusion. No large vessel abnormality. No mediastin al adenopathy by size criteria. Chest wall and lower neck: Thyroid is unremarkable. No axillary or supraclavicular adenopathy by size . Left breast lumpectomy. Bones: No aggressive osseous abnormality. Upper Abdomen: Unremarkable. IMPRESSION: No pulmonary embolus. 7 mm right upper lobe solid nodule, indeterminate in the setting of malignancy (series 4, image 79). Reviewed by: Saji Garcia on 02/06/2023 5:03 PM PDT Approved by: Saji Garcia on 02/06/2023 5:03 PM PDT Station ID: [id number]
--- NOTE | 2023-02-06 17:06 | CT Report ---
PROCEDURE: ABDOMEN/PELVIS W INDICATIONS: N/V CONTRAST: 100mL Omni 300 TECHNIQUE: After the administration of intravenous contrast, 5 mm thick sections acquired from the diaphragms to the symphysis. 5 mm thick coronal and sagittal reformats were acquired. For radiation dose reducti on, the following was used: automated exposure control, adjustment of mA and/or kV according to coco ent size. COMPARISON: None FINDINGS: Image quality: Excellent. Lung bases and heart: Unremarkable. Liver: No solid mass. Gallbladder and biliary tree: Surgically absent. No biliary dilation, accounting for post-cholecystec torri state. Spleen: No splenomegaly. Pancreas: No pancreatic ductal dilation. Adrenals: No adrenal nodule. Kidneys and ureters: No hydronephrosis. No renal cystic lesion which requires follow up. No solid mas s. Bowel and peritoneum: No bowel distension. No pathologic free fluid. Partial colectomy, with surgical anastomosis in the deep pelvis. Lymph nodes: No central or retroperitoneal adenopathy. Vessels: No infrarenal aortic aneurysm. PELVIS Reproductive organs: Unremarkable. Bladder: No abnormal wall thickening, accounting for underdistension. Pelvic lymph nodes: No pelvic adenopathy by size criteria. Bones: No aggressive osseous abnormality. Posterior surgical fusion at L4-5, without hardware complic ation. Other: No significant ventral or inguinal hernia. IMPRESSION: No acute abnormality. No evidence of bowel obstruction. Reviewed by: Saji Garcia on 02/06/2023 5:05 PM PDT Approved by: Saji Garcia on 02/06/2023 5:05 PM PDT Station ID: [id number]
[2023-02-06] MEDS: SODIUM CHLORIDE 0.9% 1,000 ML IV SCH (17:49)
[2023-02-06] MEDS ORDERED: HYDROCORTISONE 25 MG SUPPOSITORY PR PRN (17:56)
[2023-02-06] MEDS: traMADol 50 MG TABLET PO PRN ×2 (19:34→23:55)
[2023-02-06] MEDS: SODIUM CHLORIDE FLUSH 0.9% 10 ML SYRINGE IVP SCH (19:35)
[2023-02-06] MEDS ORDERED: traZODone 50 MG TABLET PO SCH (21:00)
[2023-02-07] MEDS: SODIUM CHLORIDE FLUSH 0.9% 10 ML SYRINGE IVP SCH ×2 (00:05→09:30)
[2023-02-07] MEDS: ACETAMINOPHEN 325 MG TABLET PO PRN ×2 (02:33→11:35)
[2023-02-07] MEDS: SODIUM CHLORIDE 0.9% 1,000 ML IV SCH ×2 (03:26→13:02)
[2023-02-07 05:25] LABS: BASOPHILS % (AUTO) 0.7 %; EOSINOPHILS # (AUTO) 0.2 10^3/uL (0.0-0.7); HCT - HEMATOCRIT 24.7 % (37.0-47.0); HGB - HEMOGLOBIN 8.7 g/dL (12.0-16.0); LYMPHOCYTES # (AUTO) 1.2 10^3/uL (1.5-3.5); LYMPHOCYTES % (AUTO) 21.8 %; MEAN CORPUSCULAR HEMOGLOBIN 32.1 pg (27.0-31.0); MEAN CORPUSCULAR HGB CONC 35.2 g/dL (32.0-36.0); MEAN CORPUSCULAR VOLUME 91.1 fL (81.0-99.0); MEAN PLATELET VOLUME 10.1 fL (7.9-10.8); MONOCYTES # (AUTO) 0.8 10^3/uL (0.0-1.0); MONOCYTES % (AUTO) 13.7 %; NEUTROPHILS # (AUTO) 3.3 10^3/uL (1.5-6.6); NEUTROPHILS % (AUTO) 59.4 %; PLT - PLATELET COUNT 143 10^3/uL (130-450); RED BLOOD COUNT 2.71 10^6/uL (4.20-5.40); RED CELL DISTRIBUTION WIDTH 11.9 % (12.0-15.0); WHITE BLOOD COUNT 5.5 x10^3/uL (4.8-10.8)
[2023-02-07 05:47] LABS: CALCIUM 8.3 mg/dL (8.5-10.3); CREATININE 0.8 mg/dL (0.6-1.3); MAGNESIUM 1.6 mg/dL (1.7-2.3); POTASSIUM 3.8 mmol/L (3.5-4.5)
[2023-02-07] MEDS ORDERED: LEVOTHYROXINE 25 MCG TABLET PO SCH (07:00)
[2023-02-07] MEDS ORDERED: PANTOPRAZOLE 40 MG TABLET PO SCH (07:00)
[2023-02-07] MEDS ORDERED: CYANOCOBALAMIN 1,000 MCG/ML VIAL IM ONE (08:05)
[2023-02-07] MEDS ORDERED: CALCIUM GLUC 1,000MG/50ML-NACL 1,000 MG/50 ML BAG IV ONE (08:07)
[2023-02-07] MEDS ORDERED: polyethylene glycoL 3350 17 GM PACKET PO SCH (09:00)
[2023-02-07] MEDS ORDERED: LOSARTAN 50 MG TABLET PO SCH (09:00)
[2023-02-07] MEDS ORDERED: ENOXAPARIN 40 MG/0.4 ML SYRINGE SUBQ SCH (09:00)
[2023-02-07] MEDS ORDERED: ASPIRIN CHEW 81 MG TABLET PO SCH (09:00)
[2023-02-07] MEDS ORDERED: SENNA 8.6 MG TABLET PO SCH (09:00)
[2023-02-07] MEDS ORDERED: MELOXICAM 7.5 MG TABLET PO SCH (09:00)
[2023-02-07] MEDS ORDERED: DOCUSATE SODIUM 250 MG CAPSULE PO SCH (09:00)
[2023-02-07] MEDS ORDERED: CETIRIZINE 10 MG TABLET PO SCH (09:00)
[2023-02-07] MEDS: IRON DEXTRAN 1,000 MG in SODIUM CHLORIDE 0.9% 250 ML IV ONE ×2 (09:03→09:19)
[2023-02-07] MEDS: traMADol 50 MG TABLET PO PRN (09:29)
[2023-02-07 11:49] VITALS: BP 150/69; O2SAT 94
--- NOTE | 2023-02-07 12:14 | Discharge Plan ---
Discharge Plan Problem Reviewed?: Yes Disposition: Home Health Service Condition: Stable Prescriptions: traMADol [Ultram] 50 mg PO Q4HR PRN #30 tab PRN Reason: Moderate Pain (Level 4-6) Diet: Regular Activity Restrictions: Activity as Tolerated Shower Restrictions: No Driving Restrictions: Yes (no driving until cleared by PCP or Physical Therapist) Assistance Devices: Walker Weight Bearing: Full Weight Health Concerns: You had a knee replacement done at [facility] on February 03. Postoperative you feel like you have had quite a bit of pain but you cannot take any opioid pain medicine because of itching and nausea and vomiting. As such you take tramadol. You had been drinking fluid supplements such as Gatorade but switched over to water. You then had an episode of nausea and vomiting and then fainting. You were brought to our emergency room. You are not taken to [facility]. In the emergency room was found to have a low blood pressure, and electrolyte abnormalities with sodium, potassium, chloride, calcium, and magnesium. You also have told us that you have had a problem with weight loss that may or may not have been intentional. You are able to come off her diabetic medications with this. But we noticed that you have iron deficiency anemia (which may be due to your recent surgery) as well as vitamin B12 deficient anemia. You received intravenous iron before discharge. You also received an injection of vitamin B12. Your sodium has improved tremendously. Normal sodium is 135. When you were admitted you were 121, you are now 126. Potassium was low at 3.4 and is now normal at 3.8. Magnesium was low at 1.2, it is still low at discharge at 1.6 b ut we gave you an intravenous rider of magnesium before you left. Your anemia was not low enough to require transfusion. Normal hemoglobin in a woman is 12.0. You were 8.7. Again we anticipate that with any recent surgery. In order to be transfused you need to be below 7.0. Plan of Treatment: 1. Please see your primary care provider in follow-up. They need to follow your cell counts to make sure that your anemia is responding. They also need to make sure that you get a new prescription for vitamin B12 once a month. They may need to do further work-up to find out why you have combined iron deficiency and B12 deficiency anemia. 2. Please take magnesium 400 mg a day. Sometimes magnesium can give you bloating, abdominal cramping, and loose stools. If that happens on your magnesium tablet, discussed with your primary care provider to see if there is another form of magnesium you can take. 3. Sodium is still on the low side. You are 126 and your goal is to be above 135. Please feel free to use sodium/salt on your food and a liberal basis. Make sure you keep on drinking Gatorade. Have your primary care provider recheck your salt level with a lab test called a [facility] in the next week. 4. You will resume your home health physical therapy for your knee, and please see orthopedic surgeon in follow-up at the instructed time he or she has given you. 5. Lasix can cause dehydration. We feel that was part of your problem. Do not take Lasix for the next 3 days. Then resume with your potassium as normal. 6. You cannot take pain medications in the form of opioids because they cause itching, nausea and vomiting. As such I am resuming your tramadol for pain management. Care Goals: To complete physical therapy from your knee and resume normal mobility. Hopefully in the next 2 to 3 months. Assessment: Patient is alert, oriented to person place and situation. Daughter lives next door and she says that she has excellent support from her family Follow-Up Care: Home Health - PT, Home Health - OT No Smoking: If you smoke, Please STOP! Call for help.
[2023-02-07] MEDS ORDERED: MAGNESIUM SULFATE 2 GRAM 2 GM/50 ML BAG IV ONE (12:17)
--- NOTE | 2023-02-07 12:26 | DISCHARGE SUMMARY ---
"Discharge Summary Admit Date: 02/06/23 Discharge Date: 02/07/23 Discharging Provider: Iris De León MD Primary Care Provider: MD Radha Code Status: Do Not Attempt Resuscitation Condition at Discharge: Stable Discharge Disposition: 06 Home Health Service - DIAGNOSES Discharge Diagnoses with Status of Each Condition: 1. Syncope 2. Hyponatremia 3. Nausea and vomiting 4. Iron deficiency anemia 5. Low vitamin B12 6. 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 Unilateral leg edema 8. Hypertension - HPI History of Present Illness: This is a 87-year-old female with a past medical history significant for allergic asthma, HTN, prior DM2, Depression, Anxiety, osteoarthritis. Pt used to walk 2 miles per day and still lifts weights twice per week, and she lost weight and has not needed any medication for her DM2 for > 5 years. Three days ago the patient had elective total left knee surgery done at [facility]. After discharge she was prescribed to take Tylenol with Tramadol every 4-6 hours, and the pt needed Tramadol every 4 hours for pain control. She also started eating a cannabis truffle every 4 hours, where she normally takes only one cannibis truffle every night. Patient does report that she usually drinks Gatorade daily, but ever since the operation, because of pain when get ting up to get Gatorade, she recently has only been drinking water. Today she felt constipated and while sitting on the toilet, she vomited in a waste basket, then walked to her bedroom, and checked her BP which was 88/50. She then vomited again, then got up, using a walker, to walk back to the couch. While walking, with her friend behind her and daughter leading the way, the pt had syncope. The 2 bystanders layed her on the ground and daughter did sternal massage. Mom awoke immediately. EMS was called. On presentation to the ER she was lethargic but nonfocal on neuro exam. Blood pressure here was 135/97 and she was not orthostatic. Work-up showed a hemoglobin of 9.5 (it was 12.2 three weeks ago), sodium 121 (her sodium usually runs 135), magnesium 1.2. The patient was put on saline IV in the ED. The ED provider spoke to me about this patient. The patient will be placed in Observation to evaluate and treat syncope, nausea/vomiting, hyponatremia and to continue pain management for the recent left knee surgery. I asked the patient about her CODE BLUE wishes and she wants to be a Full Code. - Past Medical History Cardiovascular: reports: Congestive heart failure, Hypertension Respiratory: reports: Asthma Neuro: reports: None Endocrine/Autoimmune: reports: Type 2 diabetes GI: reports: None LINE PRODUCER: reports: None : reports: None HEENT: reports: None Psych: reports: Depression, Anxiety Musculoskeletal: reports: Osteoarthritis Derm: reports: None MRSA Hx?: No - Past Surgical History General: reports: Appendectomy, Colonoscopy, Other (L knee surg) /LINE PRODUCER: reports: Hysterectomy, Other - CONSULTS | PROCEDURES Procedures: Chest/thorax CT angiogram with no pulmonary embolus. A 7 mm right upper lobe nodule indeterminate. Follow-up would be recommended. Chest abdomen pelvis has no acute abnormality of solid organs. No evidence of bowel obstruction. Stool occult blood was negative. - HOSPITAL COURSE Hospital Course: The patient was admitted to the hospital for syncope and collapse that was felt to be multifactorial. From volume loss due to Lasix and hydrochlorothiazide, recent surgery acute blood loss anemia, low blood pressure from narcotic meds, plus excessive BP meds and a recent n.p.o. status related to surgery. She was placed on telemetry. Given normal saline. Her home meds of Lasix and hydrochl orothiazide were not resumed. And we had hold parameters on her daily ARB. While she appeared euvolemic on exam her sodium was low. She had acute blood loss anemia from surgery and was placed on iron and vitamin C. She did not need transfusions. She did see physical therapy and Occupational Therapy once while here. Unilateral left leg edema was evaluated and CT chest and angiogram was done to make sure she did not have a PE. It was negative. The next day the patient felt normal with regards to lightheadedness or syncope. Supine blood pressure was 126/84. Sitting blood pressure 132/52. Standing was 168/62. She was 36.8 temperature. Pulse 63. Respirations 16. 94% on room air. Pain in her knee was a 4 out of a 4. Lungs were clear, regular rate and rhythm, the knee sutures were without any redness, heat, or drainage. The knee itself was swollen and slightly warm. She is Instructed to follow-up with her primary care provider. Also follow through on the discharge instructions per the orthopedic surgeon who operated on her.Home health had already been ordered for her through her discharge from her knee surgery, and that was resumed.She was noted to have B12 anemia as well as iron deficiency anemia. We anticipated the iron deficiency anemia because of the surgery but not the B12. She did receive IV iron as well as an injection of vitamin B12 IM. Sodium was 121 at admission, and was 126 at discharge. Potassium and magnesium also low and were normal at discharge. She would need a follow-up BMP, magnesium level in her PCP office. Also a CBC to make sure she w as responding to the B12 and folate. Magnesium was prescribed for home use. I asked her not to take her Lasix for the next 3 days. - ALLERGIES Allergies/Adverse Reactions: Allergies Allergy/AdvReac Type Severity Reaction Status Date / Time codeine [Codeine] Allergy Hallucinati Verified 07/18/22 15:31 ons Opioids-Meperidine and Allergy Unknown Verified 07/18/22 15:31 Related [Opioids-Meperidine & Related] Opioids-Methadone and Related Allergy Unknown Verified 07/18/22 15:31 [Opioids-Methadone & Related] - MEDICATIONS Home Medications: Ambulatory Orders Medication Instructions Recorded Confirmed Levothyroxine [Synthroid] 25 mcg PO QDAC 08/11/14 02/06/23 Losartan Potassium [Cozaar] 100 mg PO DAILY 05/28/17 02/06/23 Potassium Chloride [Klor-Con 10] 10 meq PO QDBREAKFAST 05/28/17 02/06/23 traZODone [Desyrel] 50 mg PO HS 09/12/20 02/06/23 Amlodipine Besylate [Norvasc] 2.5 mg PO QPM 12/21/20 02/06/23 Aspirin [Mono Aspirin] 81 mg PO DAILY 12/21/20 02/06/23 Nitroglycerin [Nitrostat] 0.4 mg SL Q5MIN PRN #25 tablet 07/18/22 02/06/23 Acetaminophen [Acetaminophen Extra 1,000 mg PO PRN PRN 02/06/23 02/06/23 Strength] Cetirizine [ZyrTEC] 10 mg PO DAILY 02/06/23 02/06/23 Hydrocortisone Supp [Anusol-Hc] 25 mg WA PRN PRN 02/06/23 02/06/23 Meloxicam 15 mg PO DAILY 02/06/23 02/06/23 Omeprazole Magnesium 20 mg PO DAILY 02/06/23 02/06/23 traMADol [Ultram] 50 mg PO Q4HR PRN 02/06/23 02/06/23 Furosemide [Lasix] 20 mg PO QDBREAKFAST #1 02/07/23 02/06/23 traMADol [Ultram] 50 mg PO Q4HR PRN #30 tab 02/07/23 - LABS Result Diagrams: 02/07/23 05:03 02/07/23 05:03"
[2023-02-07] MEDS ORDERED: BISACODYL 10 MG SUPP PR ONE (12:56)
== END 2023-02-07 15:50 | disposition home health service (06) ==
LOC: EDUNIT# → ED 11:27 → MS2 13:53
PROVIDERS: ADMIT Internal Medicine; ATTEND Specialist
DX: R55 Syncope and collapse (principal); E87.1 Hypo-osmolality and hyponatremia; E86.0 Dehydration; Z96.652 Presence of left artificial knee joint; G89.18 Other acute postprocedural pain; R11.2 Nausea with vomiting, unspecified; K59.00 Constipation, unspecified; E11.9 Type 2 diabetes mellitus without complications; D51.9 Vitamin B12 deficiency anemia, unspecified; I11.0 Hypertensive heart disease with heart failure; I50.9 Heart failure, unspecified; Z87.891 Personal history of nicotine dependence; D62 Acute posthemorrhagic anemia; I95.9 Hypotension, unspecified; R91.1 Solitary pulmonary nodule; R60.0 Localized edema
CPT/HCPCS: 36415; 71275; 74177; 80048; 80053; 80306; 80307; 81003; 82272; 82550; 82607; 82746; 83540; 83690; 83735; 84295; 84443; 84466; 84484; 85025; 93005; 96365; 96366; 96367; 96368; 96372; 96376; 99284; 99285; A9270; G0378; G0480; J1650; J1750; Q9967; 80320; 80329; 81001; 87086

== ENCOUNTER 2023-07-05 07:46 | Outpatient (CLI) | payer MEDICARE ==
[2023-07-05 08:15] LABS: ALBUMIN/GLOBULIN RATIO 1.7 (1.0-2.2); ALKALINE PHOSPHATASE 61 IU/L (42-121); ALT ALANINE AMINOTRANSFERASE 9 IU/L (10-60); AST ASPARTATE AMINOTRANSFERASE 14 IU/L (10-42); BILIRUBIN,TOTAL 0.5 mg/dL (0.2-1.0); BUN - BLOOD UREA NITROGEN 11 mg/dL (6-20); CALCIUM 9.4 mg/dL (8.5-10.3); CARBON DIOXIDE - CO2 29 mmol/L (21-32); CHLORIDE 100 mmol/L (101-111); CHOL/HDL RATIO 2.9 (<4.4); CHOLESTEROL 137 mg/dL; CREATININE 0.8 mg/dL (0.6-1.3); GFR - MDRD 68 (>89); GLUCOSE 104 mg/dL (74-104); HDL CHOLESTEROL 47 mg/dL; LDL CHOLESTEROL,CALCULATED 75 mg/dL; LDL/HDL RATIO 1.6 (<4.4); MAGNESIUM 1.6 mg/dL (1.7-2.3); SODIUM 134 mmol/L (135-145); TOTAL PROTEIN 6.4 g/dL (6.4-8.9); TRIGLYCERIDES 75 mg/dL (48-352); VLDL CHOLESTEROL 15 mg/dL
[2023-07-05 08:17] LABS: MICROALBUMIN,URINE < 0.7 mg/dL
[2023-07-05 08:31] LABS: THYROID STIMULATING HORMONE 2.27 uIU/mL (0.34-5.60)
[2023-07-05 08:43] LABS: BASOPHILS # (AUTO) 0.1 10^3/uL (0.0-0.1); BASOPHILS % (AUTO) 1.1 %; EOSINOPHILS # (AUTO) 0.1 10^3/uL (0.0-0.7); EOSINOPHILS % (AUTO) 2.4 %; HCT - HEMATOCRIT 36.4 % (37.0-47.0); HGB - HEMOGLOBIN 11.9 g/dL (12.0-16.0); LYMPHOCYTES # (AUTO) 1.9 10^3/uL (1.5-3.5); LYMPHOCYTES % (AUTO) 36.1 %; MEAN CORPUSCULAR HEMOGLOBIN 31.5 pg (27.0-31.0); MEAN CORPUSCULAR HGB CONC 32.7 g/dL (32.0-36.0); MEAN CORPUSCULAR VOLUME 96.3 fL (81.0-99.0); MEAN PLATELET VOLUME 10.1 fL (7.9-10.8); MONOCYTES # (AUTO) 0.7 10^3/uL (0.0-1.0); MONOCYTES % (AUTO) 12.5 %; NEUTROPHILS # (AUTO) 2.5 10^3/uL (1.5-6.6); NEUTROPHILS % (AUTO) 47.5 %; PLT - PLATELET COUNT 222 10^3/uL (130-450); RED BLOOD COUNT 3.78 10^6/uL (4.20-5.40); RED CELL DISTRIBUTION WIDTH 12.8 % (12.0-15.0); WHITE BLOOD COUNT 5.3 x10^3/uL (4.8-10.8)
[2023-07-05 08:58] LABS: BILIRUBIN,URINE NEGATIVE (NEGATIVE); GLUCOSE, URINE (UA) NEGATIVE (NEGATIVE); KETONES,URINE (UA) NEGATIVE (NEGATIVE); LEUKOCYTE ESTERASE, URINE NEGATIVE (NEGATIVE); NITRITE,URINE NEGATIVE (NEGATIVE); OCCULT BLOOD,URINE SMALL (NEGATIVE); PROTEIN,URINE NEGATIVE (NEGATIVE); UROBILINOGEN,URINE 0.2 (NORMAL) E.U./dL (NORMAL)
[2023-07-05 08:59] LABS: CLARITY,URINE CLEAR (CLEAR)
[2023-07-05 09:09] LABS: BACTERIA,URINE Rare /HPF (None Seen); RBC,URINE 0-5 /HPF (0-5); SQUAMOUS EPITHELIAL CELL,UR RARE Squamous (<= Few); WBC,URINE 0-3 /HPF (0-5)
[2023-07-05 12:23] LABS: ESTIMATED AVERAGE GLUCOSE 105 mg/dL (70-100); HEMOGLOBIN A1c% 5.3 % (4.27-6.07)
== END 2023-07-05 07:47 | disposition home or self-care (01) ==
LOC: LAB 07:46
PROVIDERS: ATTEND Internal Medicine
DX: Z00.00 Encounter for general adult medical examination without abnormal findings (principal); D64.9 Anemia, unspecified; I11.0 Hypertensive heart disease with heart failure; I50.9 Heart failure, unspecified; R05.3 Chronic cough; E11.9 Type 2 diabetes mellitus without complications; C50.919 Malignant neoplasm of unspecified site of unspecified female breast; E03.9 Hypothyroidism, unspecified; G47.00 Insomnia, unspecified; R19.5 Other fecal abnormalities; Z79.899 Other long term (current) drug therapy
CPT/HCPCS: 36415; 80053; 80061; 81001; 82043; 82570; 83036; 83721; 83735; 84443; 85025; 87086

== ENCOUNTER 2023-07-18 09:42 | Outpatient (CLI) | payer MEDICARE ==
--- NOTE | 2023-07-19 11:16 | Mammography Report ---
BILATERAL DIGITAL SCREENING MAMMOGRAM 3D/2D: 07/18/2023 CLINICAL: Routine screening. Personal history of left breast cancer. Comparison is made to exams dated: 01/25/2022 mammogram, 04/13/2021 mammogram, 01/14/2022 mammogram, a nd 09/21/2017 mammogram - [facility]. There are scattered areas of fibroglandular density in both breasts (category b / 25%-50% glandular t issue). There are benign vascular calcifications in both breasts. There also are benign post operative findi ngs in the left breast. No significant masses, calcifications, or other findings are seen in either breast. There has been no significant interval change. IMPRESSION: BENIGN There is no mammographic evidence of malignancy. A 1 year screening mammogram is recommended. This exam was interpreted at Station ID: [id number]. NOTE: For mammograms, a report in lay terms will be sent to the patient. Approximately 15% of breast malignancies will not be visualized mammographically. In the management of a palpable breast mass, a negative mammogram must not discourage biopsy of a clinically suspicious lesion. Electronically Signed By: Igor mims/dana:07/18/2023 15:57:50 letter sent: No_Letter ACR BI-RADS Category 2: Benign Finding(s) 3342F PARENCHYMAL PATTERN: (A) - The breast(s) demonstrate(s) scattered fibroglandular densities. BI-RADS CATEGORY: (2) - 2 RECOMMENDATION: (ANNUAL) - Recommend routine annual screening mammography. [id number] 1 year screening LATERALITY: (B)
== END 2023-07-18 09:43 | disposition home or self-care (01) ==
LOC: DI 09:42
PROVIDERS: ATTEND Internal Medicine
DX: Z12.31 Encounter for screening mammogram for malignant neoplasm of breast (principal); R92.323 Mammographic fibroglandular density, bilateral breasts; Z85.3 Personal history of malignant neoplasm of breast

== ENCOUNTER 2023-09-08 10:42 | Outpatient (CLI) | payer MEDICARE ==
--- NOTE | 2023-09-08 11:20 | Ultrasound Report ---
PROCEDURE: Duplex Ext Veins Right INDICATIONS: HYPERTENSION TECHNIQUE: Real-time imaging, as well as color and pulse Doppler interrogation, were performed of the lower extr emity deep veins from the inguinal ligament to the popliteal fossa. Attempted visualization of the ca lf veins was performed. COMPARISON: None. FINDINGS: The deep veins are normally compressible, and free of intraluminal thrombus. Color and pu lse Doppler demonstrate normal phasic intraluminal flow. There is normal augmentation response to di stal compression maneuver. IMPRESSION: No deep venous thrombosis of the visualized lower extremity. Reviewed by: Hernesto Peterson MD on 09/08/2023 11:19 AM PDT Approved by: Hernesto Peterson MD on 09/08/2023 11:19 AM PDT Station ID: [id number]
[2023-09-08 11:59] LABS: RHEUMATOID FACTOR POSITIVE (Negative)
== END 2023-09-08 10:43 | disposition home or self-care (01) ==
LOC: DI 10:42
PROVIDERS: ATTEND Internal Medicine
DX: I10 Essential (primary) hypertension (principal); M25.50 Pain in unspecified joint; C44.91 Basal cell carcinoma of skin, unspecified; R60.9 Edema, unspecified; Z82.61 Family history of arthritis
CPT/HCPCS: 36415; 86200; 86430

== ENCOUNTER 2023-12-05 10:00 | Outpatient (CLI) | payer MEDICARE ==
--- NOTE | 2023-12-05 14:44 | MRI Report ---
Lumbar Spine WO Clinical History: 88 years of age, Female, SPINAL STENOSIS. Comparison: 02/13/2019 Technique: Multiplanar multisequence lumbar spine MRI without contrast was performed. Findings: Prior surgery: Posterior fusion instrumentation with interbody spacer at L4-5, new from prior exam. Vertebral bodies: Vertebral body heights are maintained. Alignment: Grade 1 anterolisthesis of L5 on S1. Bone marrow: Moderate marrow edema at the posterior aspect of L2-3, favoring degenerative, new from p rior exam. Intervertebral discs: Multilevel disc bulge and disc desiccation. The conus medullaris is normal in contour, signal intensity, and location. The tip of the conus is at L1. The following axial levels are detailed below: T12-L1: No central canal stenosis. No right neuroforaminal stenosis. No left neuroforaminal stenosis. L1-L2: Mild disc bulge. No central canal stenosis. No right neuroforaminal stenosis. No left neurofor aminal stenosis. L2-L3: Diffuse disc bulge. Mild bilateral facet arthropathy. No central canal stenosis. Mild right ne uroforaminal stenosis. Mild left neuroforaminal stenosis. L3-L4: Diffuse disc bulge. Mild bilateral facet arthropathy. Mild central canal stenosis. No right ne uroforaminal stenosis. No left neuroforaminal stenosis. L4-L5: No central canal stenosis. No right neuroforaminal stenosis. No left neuroforaminal stenosis. L5-S1: Mild bilateral facet arthropathy. No central canal stenosis. Mild posterior disc uncovering. M ild right neuroforaminal stenosis. Mild left neuroforaminal stenosis. Visualized sacrum and pelvis: Heterogeneous marrow signal of the sacrum and bilateral posterior iliac wing, nonspecific. IMPRESSION: 1.Posterior fusion instrumentation with interbody spacer at L4-5, new from prior exam. 2.Multilevel degenerative change of the lumbar spine, most pronounced at L3-4, where there is mild ce ntral canal stenosis. 3.Additional mild neuroforaminal stenosis as described above. 4.Fibrovascular endplate change at L2-3, new from prior exam. 5.Heterogeneous marrow signal in the sacrum and posterior iliac wing, nonspecific. Recommend correlat ion with CBC. Reviewed by: Barb Santos MD on 12/05/2023 2:42 PM PDT Approved by: Barb Santos MD on 12/05/2023 2:42 PM PDT Station ID: [id number]
== END 2023-12-05 10:01 | disposition home or self-care (01) ==
LOC: DI 10:00
PROVIDERS: ATTEND Orthopaedic Surgery Orthopaedic Surgery of the Spine
DX: M47.816 Spondylosis without myelopathy or radiculopathy, lumbar region (principal); M48.062 Spinal stenosis, lumbar region with neurogenic claudication; M47.817 Spondylosis without myelopathy or radiculopathy, lumbosacral region; M51.36 Other intervertebral disc degeneration, lumbar region; M48.07 Spinal stenosis, lumbosacral region; Z98.1 Arthrodesis status